=== PATIENT | male | born 1935 | race Caucasian/White ===

== ENCOUNTER 2016-09-20 19:41 | Inpatient (IN) | payer MEDICARE ==
[~2016-09-20] VITALS: Ht 170.2 cm; Wt 86.8 kg
[~2016-09-20 19:41] MED LIST: /PANT40TA PO; ACET50TA PO; ASPI81TA4 PO; BISO5TAB54 PO; CARV6.25 PO; CIPR500T89 PO; FLAG500T PO; HYDR12.56 PO; METF1000 PO; NEUPRO TOP; NITR4TASL SL; QUES4POW2 PO; ROPI2TAB PO; SIMV20TA2 PO; SIMV40TA2 PO; SIMVAS; VICOBULK PO; VITA100072 INJ; VITA400C2 PO; VITA500C24 PO; [UNRECOGNIZED DRUG - OTHER] TOP; [UNRECOGNIZED DRUG - REMARK]; carvedilol; glipizide PO; primidone PO; valsartan PO
[2016-09-20] MEDS ORDERED: ACETAMINOPHEN 325 MG TAB As Ordered ONE (20:26)
[2016-09-20] MEDS: SINEMET 25-100 MG TAB PO SCH (21:00)
[2016-09-20] MEDS: PRIMIDONE 50 MG TAB PO SCH (21:00)
[2016-09-20] MEDS: rOPINIRole 1MG TAB PO SCH (21:00)
[2016-09-20] MEDS: BISOPROLOL FUM 2.5 MG PER 1/2TAB PO SCH (21:00)
--- NOTE | 2016-09-20 21:00 | REPUSA ---
CT of the head Clinical history: altered mental status. Protocol: Multiple axial CT images obtained with 5 mm slice thickness were obtained through the head without administration of contrast. Findings: The ventricles and sulci are symmetric but prominent in size bilaterally. There are periven tricular areas of low attenuation throughout the deep white matter. There is no evidence of acute hem orrhage or infarct. There is no midline shift, mass effect, or extra-axial fluid collection. The osse ous structures are unremarkable. The visualized paranasal sinuses and mastoid air cells are clear. Impression: No acute hemorrhage or infarct. 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
[2016-09-20 21:04] LABS: MEAN CORPUSCULAR HEMOGLOBIN 31.6 pg (27.0-33.0); MEAN CORPUSCULAR HGB CONC 35.3 g/dl (32.0-36.5); MEAN CORPUSCULAR VOLUME 89.7 fl (80.0-96.0); PLATELET COUNT, AUTOMATED 135 k/mm3 (150-450); RED CELL DISTRIBUTION WIDTH 14.4 % (11.5-14.5); WHITE BLOOD COUNT 17.4 K/mm3 (4.0-10.0)
[2016-09-20 21:11] LABS: BANDS 13 % (< 11)
[2016-09-20 21:30] LABS: ALBUMIN 3.8 GM/DL (3.2-5.2); ALBUMIN/GLOBULIN RATIO 1.19 (1.00-1.93); ALKALINE PHOSPHATASE 127 U/L (45-117); ALT/SGPT 10 U/L (12-78); ANION GAP 10 MEQ/L (8-16); AST/SGOT 19 U/L (15-37); BILIRUBIN,DIRECT 0.2 MG/DL (0.0-0.2); BILIRUBIN,TOTAL 0.7 MG/DL (0.2-1.0); BLOOD UREA NITROGEN 35 MG/DL (7-18); CALCIUM LEVEL 8.4 MG/DL (8.8-10.2); CARBON DIOXIDE LEVEL 28 MEQ/L (21-32); CHLORIDE LEVEL 104 MEQ/L (98-107); CREATININE FOR GFR 1.45 MG/DL (0.70-1.30); GLOMERULAR FILTRATION RATE 49.5 (>35); GLUCOSE, FASTING 304 MG/DL (83-110); POTASSIUM SERUM 5.1 MEQ/L (3.5-5.1); SODIUM LEVEL 142 MEQ/L (136-145)
[2016-09-20] MEDS ORDERED: LevoFLOXacin(LEVAQUIN)500 MG/100 ML BAG (J1956) As Ordered ONE (22:05)
[2016-09-20] MEDS ORDERED: CARB25TA PO (22:34)
[2016-09-20] MEDS ORDERED: VITA-130 PO (22:34)
[2016-09-20] MEDS ORDERED: LOPE2TAB PO (22:34)
[2016-09-20] MEDS ORDERED: VITA400C2 PO (22:34)
[2016-09-20] MEDS ORDERED: POTA10CA PO (22:34)
[2016-09-20] MEDS ORDERED: ASPI81TAEC PO (22:34)
[2016-09-20] MEDS ORDERED: LASI40TA PO (22:34)
[2016-09-20] MEDS ORDERED: LASI20TA PO (22:34)
[2016-09-20] MEDS ORDERED: GLIP5TAB8 PO ×2 (22:34)
[2016-09-20] MEDS ORDERED: ACET50TAOT PO (22:34)
[2016-09-20] MEDS ORDERED: NITR4TASL SL (22:34)
[2016-09-20] MEDS ORDERED: SIMV20TA2 PO (22:34)
[2016-09-20] MEDS ORDERED: VALS1TAB46 PO (22:34)
[2016-09-20] MEDS ORDERED: ROPI2TAB PO (22:34)
[2016-09-20] MEDS ORDERED: PRIM50TA2 PO (22:34)
[2016-09-20] MEDS ORDERED: META800T82 PO (22:34)
[2016-09-20] MEDS ORDERED: CYAN1000VL IM (22:34)
[2016-09-20] MEDS ORDERED: VITA50003 PO (22:34)
--- NOTE | 2016-09-20 23:16 | REP ---
Clinical: Nonacute cerebrovascular accident. Technique: Portable semiupright. Comparison: 06/25/2012. Findings: Cardiomegaly is appreciated with stable pacemaker and atherosclerotic changes to the aorta. Lung ortega demonstrate chronic changes without acute consolidation, effusion, or pneumothorax. Skeletal structures are intact. Impression: Chronic stable changes. No acute cardiopulmonary process appreciated. Signed by Werner Jack MD 09/20/2016 11:08 P
[2016-09-21] MEDS ORDERED: NITROGLYCERIN 0.4 MG SUBL TABLET SL PRN (01:15)
--- NOTE | 2016-09-21 01:44 | EDDOCDS ---
Physician Documentation [facility] Name: Curt Ledesma Age: 81 yrs Sex: Male : 1935 Arrival Date: 09/20/2016 Time: 19:41 Bed 8 Private MD: Edwin García MD Disposition: 09/20/16 22:06 Hospitalization ordered by Lisa Nunez for Inpatient Admission. Preliminary diagnosis are Fever, unspecified, Pneumonia, unspecified organism. - Bed requested for 4 [place]. - Status is Inpatient Admission. kas2 - Condition is Stable. - Problem is an acute exacerbation. - Symptoms are unchanged. Historical: - Allergies: no known allergies; - Home Meds: 1. carbidopa-levodopa 25-100 mg Oral tab 2 tabs 4 times per day 2. glipizide 5 mg Oral tab 1 tab once daily 3. glipizide 5 mg Oral tab .5 tab once daily 4. Lasix 40 mg Oral tab 1 tab once daily 5. Lasix 20 mg Oral tab 1 tab once daily 6. potassium chloride 20 mEq Oral TbTQ 1 tab once daily 7. primidone 50 mg Oral tab 1 tabs bid 8. ropinirole 2 mg oral Tb24 2 tabs once daily 9. valsartan 80 mg oral tab 1 tab 2 times per day 10. Zebeta 5 mg oral tab 0.5 tab bid 11. immodium 1 bid 12. simvastatin 20 mg Oral tab 1 tab once daily 13. Aspirin Low Dose 81 mg oral TbEC 1 tab once daily 14. Vitamin C 100 mg Oral chew 15. vitamin E 400 unit Oral tab 16. metaxalone 800 mg oral tab .5 tab bid 17. Tylenol 500mg q 4hrs prn Oral 18. nitroglycerin 0.4 mg SL subl 1 tab every 5 minutes 19. vitamin [id number] im 20. Vitamin D 1 weekly Oral - PMHx: Diabetes - NIDDM: uncontrolled; Hypercholesterolemia; Hypertension; Myocardial infarction; defibrillator; Osteoarthritis; - PSHx: none; - Social history: Smoking status: Patient states was never smoker of tobacco. No barriers to communication noted. - Family history: Not pertinent. - : The pt / caregiver states he / she is not on anticoagulants. Home medication list is obtained from the patient. - Exposure Risk Screening:: None identified. Vital Signs: 09/20 19:50 BP 135 / 63; Pulse 111; Resp 20; Temp 102.5(O); Pulse Ox 96% on R/A; Weight 104.33 kg / ls3 230.01 lbs; Height 5 ft. 4 in. (162.56 cm); Pain 0/10; 20:39 BP 154 / 58 (auto/); kas2 20:40 Pulse 110 MON; kas2 20:59 BP 119 / 60 (auto/); kas2 20:59 Pulse 106 MON; kas2 21:07 Pulse 104 MON; kas2 21:09 BP 103 / 53 (auto/); kas2 21:24 BP 101 / 54 (auto/); kas2 21:24 Pulse 100 MON; Pulse Ox 99% ; kas2 21:39 BP 98 / 53 (auto/); kas2 21:39 Pulse 100 MON; Pulse Ox 95% ; kas2 21:54 BP 114 / 57 (auto/); kas2 21:54 Pulse 98 MON; Pulse Ox 99% ; kas2 22:14 Temp 101.1(TE); ls3 22:24 BP 98 / 70 (auto/); kas2 22:24 Pulse 96 MON; Pulse Ox 99% ; kas2 22:24 Resp 18; kas2 22:39 BP 95 / 50 (auto/); kas2 22:39 Pulse 96 MON; Pulse Ox 97% ; kas2 22:54 BP 99 / 57 (auto/); kas2 22:54 Pulse 96 MON; Pulse Ox 98% ; kas2 23:18 BP 77 / 49 (auto/); kas2 23:18 Pulse 92 MON; Pulse Ox 96% ; kas2 23:24 BP 78 / 49 (auto/); kas2 23:24 Pulse 92 MON; Pulse Ox 96% ; kas2 23:39 BP 102 / 58 (auto/); kas2 23:39 Pulse 92 MON; Pulse Ox 100% ; kas2 23:54 BP 104 / 54 (auto/); kas2 23:54 Pulse 90 MON; Pulse Ox 100% ; kas2 09/21 00:09 BP 105 / 55 (auto/); kas2 00:09 Pulse 90 MON; Pulse Ox 99% ; kas2 00:47 BP 103 / 52; Pulse 90; Resp 18; Pulse Ox 99% on 4 lpm NC; Pain 0/10; kas2 00:54 BP 95 / 52 (auto/); kas2 00:54 Pulse 88 MON; Pulse Ox 98% ; kas2 01:09 BP 105 / 55 (auto/); [facility] 01:09 Pulse 86 MON; Pulse Ox 98% ; [facility] 01:16 Temp 100.0(TE); [facility] 01:16 Pain 0/10; [facility] 09/20 19:50 Body Mass Index 39.48 (104.33 kg, 162.56 cm) ls3 MDM: 09/20 20:16 Acetaminophen Tablet 975 mg PO once ordered. ke 20:16 Record Filing Clerk/Pulse Ox/q 15 min VS ordered. ke 20:16 Accucheck ordered. ke 20:16 IV Saline Lock ordered. ke 20:16 Oxygen at 4L/Min NC or Home dosage ordered. ke 20:16 Rhythm Strip to chart ordered. ke 20:16 Straight cath ordered. ke 20:16 NS 0.9% 1000 ml IV at 100 mL/hr continuous ordered. ke 20:18 Acetaminophen Level Ordered. EDMS 20:18 CBC with Diff Ordered. EDMS 20:18 Cardiac Injury Profile Ordered. EDMS 20:18 Liver Profile Ordered. EDMS 20:18 MED Profile Ordered. EDMS 20:18 Salicylate Level Ordered. EDMS 20:18 Thyroid Stimulating Hormone Ordered. EDMS 20:18 Troponin Ordered. EDMS 20:18 Urinalysis Ordered. EDMS 20:18 Urine Culture Ordered. EDMS 20:18 Chest, 1 View Ordered. EDMS 20:18 CT Head Without Contrast Ordered. EDMS 20:18 ECG WITH READING ER PHYS+CARDIAG ordered. EDMS 20:26 Lactic Acid (Mejia tube on ice) Ordered. EDMS 21:01 Financial registration complete. gjb 21:07 DIFFERENTIAL NO CHARGE Ordered. EDMS 21:07 PLATELET ESTIMATE Ordered. EDMS 21:08 [facility] Payment Agreement was scanned into [employer] and attached to record. gjb 21:32 Fingerstick Blood Sugar Ordered. EDMS 21:40 Acetaminophen Level Reviewed. ke 21:40 CBC with Diff Reviewed. ke 21:40 Liver Profile Reviewed. ke 21:40 MED Profile Reviewed. ke 21:40 Salicylate Level Reviewed. ke 21:40 Lactic Acid (Mejia tube on ice) Reviewed. ke 21:40 Fingerstick Blood Sugar Reviewed. ke 21:40 Cardiac Injury Profile Reviewed. ke 21:40 Thyroid Stimulating Hormone Reviewed. ke 21:40 Troponin Reviewed. ke 21:40 PLATELET ESTIMATE Reviewed. ke 21:56 Urinalysis Reviewed. ke 21:56 CT Head Without Contrast Reviewed. ke 22:01 levofloxacin 500 mg IVPB once over 60 mins ordered. ke 22:07 BED REQUEST+ADM ordered. EDMS 22:41 -Blood Culture (Adults Only), peripheral from different site, or from device/port/PICC ke etc. if present ordered. 22:42 -Blood Culture Ordered. EDMS 22:44 -Blood Culture (Adults Only), peripheral from different site, or from device/port/PICC tmm1 etc. if present complete. 22:46 BLOOD CULTURES Ordered. EDMS 23:33 NS 0.9% 1000 ml IV at bolus once ordered. ke 09/21 00:56 BRAIN NATIURETIC PEPTIDE Ordered. EDMS 01:03 COMPLETE BLOOD COUNT Ordered. EDMS 01:03 BASIC METABOLIC PROFILE Ordered. EDMS 01:03 PHYSICAL THERAPY EVAL & TREAT ordered. EDMS 01:04 Admission / Observation Status ordered. EDMS 01:04 CONSISTENT CARBOHYDRATES ordered. EDMS 01:07 PRIMIDONE (MYSOLINE) LEVEL Ordered. EDMS 01:[address] GRAM [address] Ordered. EDMS Point of Care Testing: Blood Glucose: 09/20 20:03 Blood Glucose: 409 mg/dL; kas2 21:25 Blood Glucose: 283 mg/dL; kas2 Ranges: Administered Medications: 20:29 Drug: Acetaminophen 975 mg [acetaminophen 325 mg tablet (3 tabs)] Route: PO; jp6 20:53 Drug: NS 0.9% 1000 ml [sodium chloride 0.9 % intravenous solution] Route: IV; Rate: 100 kas2 mL/hr; Site: right antecubital; 22:09 Drug: levofloxacin 500 mg [levofloxacin 500 mg/100 mL in 5 % dextrose intravenous kas2 piggyback] Route: IVPB; Infused Over: 60 mins; Site: right antecubital; 23:50 Drug: NS 0.9% 1000 ml [sodium chloride 0.9 % intravenous solution] Route: IV; Rate: kas2 bolus; Site: right antecubital; Signatures: Dispatcher [employer] EDMS Cesar Lozano, SAFE AND VAULT SERVICE MECHANIC SAFE AND [employer]ULT SERVICE MECHANIC ke McLear, Annabelle, EFFERVESCENT SALTS COMPOUNDER EFFERVESCENT SALTS COMPOUNDER tmm1 Jenni Acunab Hanny MartinezRN RN kas2 Alia Romero RN RN jp6 The chart was reviewed and I authenticate all verbal orders and agree with the evaluation and treatment provided.Attachments: 21:08 [facility] Payment Agreement gjb [email or web address]
[2016-09-21 01:45] VITALS: BP 103/51
--- NOTE | 2016-09-21 01:45 | EDDOCDS ---
Nurse's Notes [facility] Name: Curt Ledesma Age: 81 yrs Sex: Male : 1935 Arrival Date: 09/20/2016 Time: 19:41 Bed 8 Private MD: Edwin García MD Diagnosis: Fever, unspecified;Pneumonia, unspecified organism Presentation: 09/20 19:48 Presenting complaint: EMS states: Son called EMS because patient was disoriented for a kas2 couple of hours. FSBS for EMS was 409 mg/dL. History of diabetes. Adult Sepsis Screening: Patient has new or worsening altered mentation (1 point). Patient's respiratory rate is less than 22. Systolic blood pressure is greater than 100. Patient has a qSOFA score of 0- Negative Sepsis Screen. Suicide/Homicide risk assessment- the patient denies having any suicidal and/or homicidal ideations and does not present with any other emotional, behavioral or mental health complaints. Status: Patient is not a customer service dispatcher or dependent. Transition of care: patient was not received from another setting of care. 19:48 Acuity: KEN Level 3 kas2 19:48 Method Of Arrival: Ambulance [facility] Triage Assessment: 19:55 General: Appears in no apparent distress, comfortable, well nourished, well groomed, kas2 Behavior is appropriate for age, cooperative. Pain: Denies pain. Neurological: Level of Consciousness is awake, alert, Oriented to person, place, time. 20:00 Cardiovascular: Capillary refill < 3 seconds Heart tones S1 S2 present Rhythm is sinus kas2 tachycardia No ectopy. Cardiovascular: Edema is 3+ to left midcalf, left ankle, left foot, right midcalf, right ankle and right foot. Respiratory: Airway is patent Respiratory effort is even, unlabored, Respiratory pattern is regular, symmetrical, Breath sounds are clear bilaterally. Breath sounds are diminished bilaterally. GI: Abdomen is flat, non- distended Bowel sounds present X 4 quads. Abd is soft and non tender X 4 quads. Derm: Skin is intact, is healthy with good turgor, Skin is dry, Skin is pink, warm & dry. Skin temperature is warm. Historical: - Allergies: no known allergies; - Home Meds: 1. carbidopa-levodopa 25-100 mg Oral tab 2 tabs 4 times per day 2. glipizide 5 mg Oral tab 1 tab once daily 3. glipizide 5 mg Oral tab .5 tab once daily 4. Lasix 40 mg Oral tab 1 tab once daily 5. Lasix 20 mg Oral tab 1 tab once daily 6. potassium chloride 20 mEq Oral TbTQ 1 tab once daily 7. primidone 50 mg Oral tab 1 tabs bid 8. ropinirole 2 mg oral Tb24 2 tabs once daily 9. valsartan 80 mg oral tab 1 tab 2 times per day 10. Zebeta 5 mg oral tab 0.5 tab bid 11. immodium 1 bid 12. simvastatin 20 mg Oral tab 1 tab once daily 13. Aspirin Low Dose 81 mg oral TbEC 1 tab once daily 14. Vitamin C 100 mg Oral chew 15. vitamin E 400 unit Oral tab 16. metaxalone 800 mg oral tab .5 tab bid 17. Tylenol 500mg q 4hrs prn Oral 18. nitroglycerin 0.4 mg SL subl 1 tab every 5 minutes 19. vitamin [id number] im 20. Vitamin D 1 weekly Oral - PMHx: Diabetes - NIDDM: uncontrolled; Hypercholesterolemia; Hypertension; Myocardial infarction; defibrillator; Osteoarthritis; - PSHx: none; - Social history: Smoking status: Patient states was never smoker of tobacco. No barriers to communication noted. - Family history: Not pertinent. - : The pt / caregiver states he / she is not on anticoagulants. Home medication list is obtained from the patient. - Exposure Risk Screening:: None identified. Screenin:02 Screening information is obtained from the patient. Fall risk: No risks identified. kas2 Assistance ADL's: requires no assistance with activities of daily living. Abuse/DV Screen: The patient / caregiver reports he/she is: not in a situation that causes fear, pain or injury. Nutritional screening: No deficits noted. Advance Directives: Currently, there is no health care proxy. There is no active DNR order. There is a living will, but a copy is not available at this time. There is no Power of Bolt Loader. home support is adequate. Assessment: 20:02 General: See triage note.. kas2 21:15 General: Appears in no apparent distress, comfortable, well nourished, well groomed, kas2 Behavior is appropriate for age, cooperative. Pain: Denies pain. Neurological: Level of Consciousness is awake, alert, Oriented to person, place, time. Cardiovascular: Capillary refill < 3 seconds Heart tones present Rhythm is sinus tachycardia No ectopy. Respiratory: Airway is patent Respiratory effort is even, unlabored, Respiratory pattern is regular, symmetrical, Breath sounds are clear bilaterally. Breath sounds are diminished bilaterally. Derm: Skin is intact, is healthy with good turgor, Skin is dry, Skin is pink, warm & dry. Skin temperature is warm. 22:30 General: Appears in no apparent distress, comfortable, well nourished, well groomed, kas2 Behavior is appropriate for age, cooperative, drowsy. Pain: Denies pain. Neurological: Level of Consciousness is awake, alert, obeys commands, Oriented to person, place, time. Cardiovascular: Capillary refill < 3 seconds Heart tones present Rhythm is sinus tachycardia No ectopy. Respiratory: Airway is patent Respiratory effort is even, unlabored, Respiratory pattern is regular, symmetrical, Breath sounds are clear bilaterally. Breath sounds are diminished bilaterally. Derm: Skin is intact, is healthy with good turgor, Skin is dry, Skin is pink, warm & dry. Skin temperature is warm. 23:52 General:. kas2 23:52 General: Patients BP 78/[address] Hi aware. Cesar Lozano NP aware and orders given..kas2 09/21 00:48 General: Patient sleeping at this time. Denies pain or discomfort at this time. No kas2 apparent distress at this time. Appears comfortable. Family at bedside. Call nobles within reach. Will continue to monitor.. Vital Signs: 09/20 19:50 BP 135 / 63; Pulse 111; Resp 20; Temp 102.5(O); Pulse Ox 96% on R/A; Weight 104.33 kg; ls3 Height 5 ft. 4 in. (162.56 cm); Pain 0/10; 20:39 BP 154 / 58 (auto/); kas2 20:40 Pulse 110 MON; kas2 20:59 BP 119 / 60 (auto/); kas2 20:59 Pulse 106 MON; kas2 21:07 Pulse 104 MON; kas2 21:09 BP 103 / 53 (auto/); kas2 21:24 BP 101 / 54 (auto/); kas2 21:24 Pulse 100 MON; Pulse Ox 99% ; kas2 21:39 BP 98 / 53 (auto/); kas2 21:39 Pulse 100 MON; Pulse Ox 95% ; kas2 21:54 BP 114 / 57 (auto/); kas2 21:54 Pulse 98 MON; Pulse Ox 99% ; kas2 22:14 Temp 101.1(TE); ls3 22:24 BP 98 / 70 (auto/); kas2 22:24 Pulse 96 MON; Pulse Ox 99% ; kas2 22:24 Resp 18; kas2 22:39 BP 95 / 50 (auto/); kas2 22:39 Pulse 96 MON; Pulse Ox 97% ; kas2 22:54 BP 99 / 57 (auto/); kas2 22:54 Pulse 96 MON; Pulse Ox 98% ; kas2 23:18 BP 77 / 49 (auto/); kas2 23:18 Pulse 92 MON; Pulse Ox 96% ; kas2 23:24 BP 78 / 49 (auto/); kas2 23:24 Pulse 92 MON; Pulse Ox 96% ; kas2 23:39 BP 102 / 58 (auto/); kas2 23:39 Pulse 92 MON; Pulse Ox 100% ; kas2 23:54 BP 104 / 54 (auto/); kas2 23:54 Pulse 90 MON; Pulse Ox 100% ; kas2 09/21 00:09 BP 105 / 55 (auto/); kas2 00:09 Pulse 90 MON; Pulse Ox 99% ; kas2 00:47 BP 103 / 52; Pulse 90; Resp 18; Pulse Ox 99% on 4 lpm NC; Pain 0/10; kas2 00:54 BP 95 / 52 (auto/); kas2 00:54 Pulse 88 MON; Pulse Ox 98% ; kas2 01:09 BP 105 / 55 (auto/); kas2 01:09 Pulse 86 MON; Pulse Ox 98% ; kas2 01:16 Temp 100.0(TE); kas2 01:16 Pain 0/10; kas2 09/20 19:50 Body Mass Index 39.48 (104.33 kg, 162.56 cm) ls3 Vitals: 09/20 20:02 Log In Time N/A - ambulance arrival. [facility] ED Course: 19:42 Patient visited by Annabelle Lozano PCA. tmm1 19:42 Patient moved to Waiting tmm1 19:43 Edwin Gacría is Private Physician. tmm1 19:44 Hanny Martinez RN is Primary Nurse. tmm1 19:44 Patient moved to 8 tmm1 19:50 Triage Initiated kas2 19:58 [facility] ke 19:58 Patient visited by Cesar Lozano FNP. ke 19:58 Patient visited by Cesar Lozano FNP. ke 20:03 Patient visited by Hanny Martinez RN. kas2 20:04 gambling monitor on. Pulse ox on. NIBP on. kas2 20:25 Patient visited by Serafin Collins PCA. mdr 20:25 EKG done. (by ED staff). Reviewed by Cesar OCASIO. mdr 20:53 Inserted saline lock: 20 gauge in right antecubital area and blood collected. The kas2 patient tolerated the procedure well. 20:54 Patient visited by Hanny Martinez RN. kas2 21:06 Urinalysis Sent. kas2 21:06 Urine Culture Sent. kas2 21:08 [facility] Payment Agreement was scanned into [employer] and attached to record. gjb 21:21 Patient visited by Cesar Lozano FNP. ke 21:26 Patient visited by Hanny Martinez RN. kas2 21:39 Notified nurse practitioner of lactic acid of 2.3. sls1 21:52 CT Head Without Contrast Returned. EDMS 21:56 Patient visited by Cesar Lozano FNP. ke 22:04 Lisa Nunez is Hospitalizing Provider. ke 22:04 DIFFERENTIAL NO CHARGE Sent. kas2 22:11 Patient visited by Hanny Martinez RN. kas2 22:15 Patient visited by Renetta Rushing PCA. ls3 22:33 Lisa Hi non destructive testing supervisor. ys2 22:34 Lisa Hi non destructive testing supervisor. ys2 23:49 Chest, 1 View Returned. EDMS 23:57 Patient visited by Hanny Martinez RN. kas2 09/21 00:52 Patient visited by Hanny Martinez RN. kas2 01:25 Patient visited by Hanny Martinez RN. kas2 01:42 The patient / caregiver is instructed regarding the plan of care and ED course. kas2 01:42 No procedures done that require assistance. kas2 01:43 Patient visited by Hanny Martinez RN. kas2 Administered Medications: 09/20 20:29 Drug: Acetaminophen 975 mg [acetaminophen 325 mg tablet (3 tabs)] Route: PO; jp6 20:53 Drug: NS 0.9% 1000 ml [sodium chloride 0.9 % intravenous solution] Route: IV; Rate: 100 kas2 mL/hr; Site: right antecubital; 22:09 Drug: levofloxacin 500 mg [levofloxacin 500 mg/100 mL in 5 % dextrose intravenous kas2 piggyback] Route: IVPB; Infused Over: 60 mins; Site: right antecubital; 23:50 Drug: NS 0.9% 1000 ml [sodium chloride 0.9 % intravenous solution] Route: IV; Rate: kas2 bolus; Site: right antecubital; Point of Care Testing: Blood Glucose: 20:03 Blood Glucose: 409 mg/dL; kas2 21:25 Blood Glucose: 283 mg/dL; kas2 Ranges: Order Results: Lab Order: Acetaminophen Level; SPEC'M 09/20/16 20:46 Test: ACETAMINOPHEN LEVEL; Value: 2.0; Range: 10.0-30.0; Abnormal: Below low normal; Units: UG/ML; Status: F Lab Order: CBC with Diff; SPEC'M 09/20/16 20:46 Test: WHITE BLOOD COUNT; Value: 17.4; Range: 4.0-10.0; Abnormal: Above high normal; Units: K/mm3; Status: F Test: RED BLOOD COUNT; Value: 4.22; Range: 4.30-6.10; Abnormal: Below low normal; Units: M/mm3; Status: F Test: HEMOGLOBIN; Value: 13.3; Range: 14.0-18.0; Abnormal: Below low normal; Units: g/dl; Status: F Test: HEMATOCRIT; Value: 37.8; Range: 42.0-52.0; Abnormal: Below low normal; Units: %; Status: F Test: MEAN CORPUSCULAR VOLUME; Value: 89.7; Range: 80.0-96.0; Units: fl; Status: F Test: MEAN CORPUSCULAR HEMOGLOBIN; Value: 31.6; Range: 27.0-33.0; Units: pg; Status: F Test: MEAN CORPUSCULAR HGB CONC; Value: 35.3; Range: 32.0-36.5; Units: g/dl; Status: F Test: RED CELL DISTRIBUTION WIDTH; Value: 14.4; Range: 11.5-14.5; Units: %; Status: F Test: PLATELET COUNT, AUTOMATED; Value: 135; Range: 150-450; Abnormal: Below low normal; Units: k/mm3; Status: F Test: NEUTROPHILS; Value: 82; Range: 35-75; Abnormal: Above high normal; Units: %; Status: F Test: BANDS; Value: 13; Range: < 11; Abnormal: Above high normal; Units: %; Status: F Test: LYMPHOCYTES; Value: 1; Range: 16-52; Abnormal: Below low normal; Units: %; Status: F Test: MONOCYTES; Value: 4; Range: 0-8; Units: %; Status: F Test: RBC MORPHOLOGY; Value: NORMAL; Status: F Lab Order: Cardiac Injury Profile; SPEC'M 09/20/16 20:46 Test: CPK CREATINE PHOSPHOKINASE; Value: 147; Range: 39-308; Units: U/L; Status: F Test: CK-MB VALUE MASS; Value: 1.7; Range: 0.0-3.6; Units: NG/ML; Status: F Test: MB/CK RELATIVE INDEX; Value: 1.15; Range: < OR =4; Status: F Test Note: ; DIAGNOSIS CRITERIA MMB ng/ml Relative Index (RI) NON-AMI < or = 5 N/A MEJIA ZONE > 5 < or = 4 AMI > 5 > 4 Lab Order: Liver Profile; SPEC'M 09/20/16 20:46 Test: AST/SGOT; Value: 19; Range: 15-37; Units: U/L; Status: F Test: ALT/SGPT; Value: 10; Range: 12-78; Abnormal: Below low normal; Units: U/L; Status: F Test: ALKALINE PHOSPHATASE; Value: 127; Range: 45-117; Abnormal: Above high normal; Units: U/L; Status: F Test: BILIRUBIN,TOTAL; Value: 0.7; Range: 0.2-1.0; Units: MG/DL; Status: F Test: BILIRUBIN,DIRECT; Value: 0.2; Range: 0.0-0.2; Units: MG/DL; Status: F Test: TOTAL PROTEIN; Value: 7.0; Range: 6.4-8.2; Units: GM/DL; Status: F Test: ALBUMIN; Value: 3.8; Range: 3.2-5.2; Units: GM/DL; Status: F Test: ALBUMIN/GLOBULIN RATIO; Value: 1.19; Range: 1.00-1.93; Status: F Lab Order: MED Profile; SPEC'M 09/20/16 20:46 Test: GLUCOSE, FASTING; Value: 304; Range: 83-110; Abnormal: Above high normal; Units: MG/DL; Status: F Test: BLOOD UREA NITROGEN; Value: 35; Range: 7-18; Abnormal: Above high normal; Units: MG/DL; Status: F Test: CREATININE FOR GFR; Value: 1.45; Range: 0.70-1.30; Abnormal: Above high normal; Units: MG/DL; Status: F Test: GLOMERULAR FILTRATION RATE; Value: 49.5; Range: >35; Status: F Test: SODIUM LEVEL; Value: 142; Range: 136-145; Units: MEQ/L; Status: F Test: POTASSIUM SERUM; Value: 5.1; Range: 3.5-5.1; Units: MEQ/L; Status: F Test: CHLORIDE LEVEL; Value: 104; Range: 98-107; Units: MEQ/L; Status: F Test: CARBON DIOXIDE LEVEL; Value: 28; Range: 21-32; Units: MEQ/L; Status: F Test: ANION GAP; Value: 10; Range: 8-16; Units: MEQ/L; Status: F Test: CALCIUM LEVEL; Value: 8.4; Range: 8.8-10.2; Abnormal: Below low normal; Units: MG/DL; Status: F Test Note: ; Units are mL/min/1.73 m2 Chronic Kidney Disease Staging per NKF: Stage I & II GFR >=60 Normal to Mildly Decreased Stage III GFR 30-59 Moderately Decreased Stage IV GFR 15-29 Severely Decreased Stage V GFR <15 Very Little GFR Left ESRD GFR <15 on VIRTUALIZATION CONSULTANT Lab Order: Salicylate Level; SPEC'M 09/20/16 20:46 Test: SALICYLATE LEVEL; Value: < 1.7; Range: 5.0-30.0; Abnormal: Below low normal; Units: MG/DL; Status: F Lab Order: Thyroid Stimulating Hormone; SPEC'M 09/20/16 20:46 Test: THYROID STIMULATING HORMONE; Value: 1.750; Range: 0.358-3.740; Units: uIU/ML; Status: F Lab Order: Troponin; SPEC'M 09/20/16 20:46 Test: TROPONIN I; Value: 0.04; Range: < 0.10; Units: NG/ML; Status: F Test Note: ; Troponin I Reference Interval for [employer] LOCI: 99th Percentile= 0.00-0.045 ng/ml Risk Stratification: <= 0.10 ng/ml Decreased Risk for Adverse Clinical Events. 0.10-1.50 ng/ml Increased Risk for Adverse Clinical Events. Evaluation of additional criterion and/or repeat testing in 2-6 hours is suggested to rule out myocardial damage. >= 1.50 ng/ml Indicative of Myocardial Injury. Lab Order: Urinalysis; SPEC'M 09/20/16 20:46 Test: APPEARANCE, URINE; Value: CLEAR; Range: CLEAR; Status: F Test: COLOR, URINE; Value: YELLOW; Range: YELLOW; Status: F Test: PH,URINE; Value: 5.0; Range: 5.0-9.0; Units: UNITS; Status: F Test: SPECIFIC GRAVITY URINE AUTO; Value: 1.009; Range: 1.002-1.035; Status: F Test: PROTEIN, URINE AUTO; Value: NEGATIVE; Range: NEGATIVE; Units: mg/dL; Status: F Test: GLUCOSE, URINE (UA) AUTO; Value: 3+; Range: NEGATIVE; Abnormal: Above high normal; Units: mg/dL; Status: F Test: KETONE, URINE AUTO; Value: NEGATIVE; Range: NEGATIVE; Units: mg/dL; Status: F Test: UROBILINOGEN, URINE AUTO; Value: 0.2; Range: 0.0-2.0; Units: mg/dL; Status: F Test: BILIRUBIN, URINE AUTO; Value: NEGATIVE; Range: NEGATIVE; Status: F Test: NITRITE, URINE AUTO; Value: NEGATIVE; Range: NEGATIVE; Status: F Test: LEUKOCYTE ESTERASE, URINE AUTO; Value: NEGATIVE; Range: NEGATIVE; Status: F Test: BLOOD, URINE BLOOD; Value: NEGATIVE; Range: NEGATIVE; Status: F Test: WBC, URINE AUTO; Value: 0; Range: 0-3; Units: /HPF; Status: F Test: RBC, URINE AUTO; Value: 1; Range: 0-3; Units: /HPF; Status: F Test: BACTERIA, URINE AUTO; Value: NEGATIVE; Range: NEGATIVE; Status: F Test: SQUAMOUS EPITHELIAL CELL UR AU; Value: 0; Range: 0-6; Units: /HPF; Status: F Test: MUCUS, URINE; Value: SMALL; Range: NEGATIVE; Status: F Test: HYALINE CAST, URINE AUTO; Value: 0; Range: 0-1; Units: /LPF; Status: F Lab Order: Lactic Acid (Mejia tube on ice); SPEC'M 09/20/16 20:46 Test: LACTIC ACID LEVEL, LACTATE; Value: 2.3; Range: 0.4-2.0; Abnormal: Above upper panic limits; Units: MMOL/L; Status: F Lab Order: PLATELET ESTIMATE; SPEC'M 09/20/16 20:46 Test: PLATELET ESTIMATE; Value: DECREASED; Range: NORMAL; Status: F Lab Order: Fingerstick Blood Sugar; SPEC'M 09/20/16 21:24 Test: BEDSIDE GLUCOSE; Value: 283; Range: 83-110; Abnormal: Above high normal; Units: MG/DL; Status: F Lab Order: BRAIN NATIURETIC PEPTIDE; SPEC'M 09/20/16 20:46 Test: BRAIN NATRIURETIC PEPTIDE; Value: 192; Range: <100; Abnormal: Above high normal; Units: PG/ML; Status: F Radiology Order: CT Head Without Contrast Test: CT Head Without Contrast REASON FOR EXAMINATION: altered mental status; ; CT of the head; Clinical history: altered mental status.; Protocol: Multiple axial CT images obtained with 5 mm slice thickness were obtained through the head; without administration of contrast.; Findings: The ventricles and sulci are symmetric but prominent in size bilaterally. There are periven; tricular areas of low attenuation throughout the deep white matter. There is no evidence of acute hem; orrhage or infarct. There is no midline shift, mass effect, or extra-axial fluid collection. The osse; ous structures are unremarkable. The visualized paranasal sinuses and mastoid air cells are clear.; Impression: No acute hemorrhage or infarct. 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 Lung ortega demonstrate chronic changes without acute consolidation,; effusion, or pneumothorax. Skeletal structures are intact.; ; Impression:; Chronic stable changes. No acute cardiopulmonary process appreciated.; ; ; Signed by; Werner Jack MD 09/20/2016 11:08 P; Outcome: 22:06 Decision to Hospitalize by Provider. teddy 09/21 01:40 Discharge Assessment: patient administered narcotics - no. The following High Risk [facility] Discharge criteria are identified: None. Admitted to Med/Surg accompanied by tech, family with patient, via stretcher, with oxygen, with chart. Condition: good Condition: stable. No special radiology studies were completed. Property :Personal belongings accompany Pt. 01:43 Patient left the ED. [facility] Signatures: Dispatcher [employer] EDMS Cesar Lozano, HOTEL SUPERINTENDENT HOTEL SUPERINTENDENT Margaret Cruz, RN RN sls1 Marta, Annabelle, YARD DEMURRAGE CLERK YARD DEMURRAGE CLERK tmm1 Renetta Rushing, YARD DEMURRAGE CLERK YARD DEMURRAGE CLERK ls3 Serafin Collins, YARD DEMURRAGE CLERK YARD DEMURRAGE CLERK mdr Jenni Acuna Yu ys2 Hanny Martinez,RN RN perry2 Alia Romero,RN RN jp6 Corrections: (The following items were deleted from the chart) 09/20 23:57 23:55 General: Appears in no apparent distress, comfortable, well nourished, well kas2 groomed, Behavior is appropriate for age, cooperative, drowsy, [facility] 23:57 23:55 Pain: Denies pain. [facility] 23:57 23:55 Neurological: Level of Consciousness is awake, alert, obeys commands, Oriented to [facility] person, place, time, [facility] 23:57 23:55 Cardiovascular: Capillary refill < 3 seconds Heart tones present Rhythm is sinus kas2 tachycardia No ectopy. [facility] 23:57 23:55 Respiratory: Airway is patent Respiratory effort is even, unlabored, Respiratory [facility] pattern is regular, symmetrical, Breath sounds are clear bilaterally. Breath sounds are diminished bilaterally. kas2 23:57 23:55 Derm: Skin is intact, is healthy with good turgor, Skin is dry, Skin is pink, kas2 warm & dry. Skin temperature is warm kas2 MTDD
--- NOTE | 2016-09-21 03:08 | HPE ---
DATE OF ADMISSION: 09/21/2016 PRIMARY CARE PROVIDER: Dr. Edwin García CHIEF COMPLAINT: Confusion. HISTORY OF PRESENT ILLNESS: The patient is an 81-year-old male with past medical history significant for Parkinson's, non-insulin dependent diabetes, hypercholesterolemia, hypertension, myocardial infarction, congestive heart failure (CHF), osteoarthritis, who was brought to [facility] by ambulance for acute onset of confusion. Patient's son, the health care proxy was also present in the room during the encounter. Per the son, patient has Parkinson's at baseline; however, he is able to walk around the house with a walker, he is able to eat by himself. Family members usually come to visit him a few times a day to help him with bath and medications. Starting this morning, patient started to mention things out of the ordinary. He started to show some signs of confusion. In the afternoon, the patient started developing disorientation, unable to maintain normal ambulation. Patient also noted to start having a fever. Per patient and the son, at baseline, patient usually lives at home by himself. There were a few times patient would sleep in the chair; however, usually he can get up by himself and uses a walker to move around. However, today he does not demonstrate enough muscle strength to perform his usual activities. Per patient's son, the patient also noted to have increased urinary frequency for the past two days and there were several incidences when the patient demonstrated increased urgency. Patient also does have chronic lower extremity swelling. There are multiple ulcers on the bilateral extremities and they continue to have small blister formation, and there is some serous drainage coming out of the open sores. Denies any decubitus ulcers. Denies any shortness of breath. Denies any abdominal pain. Denies any diarrhea. ALLERGIES: No known drug allergies. HOME MEDICATIONS: - carbidopa/levodopa 25/100 two tabs four times a day - glipizide 5 mg by mouth every morning and 2.5 mg by mouth every night - Lasix 40 mg by mouth every morning and 20 mg by mouth every night - potassium chloride 20 mEq one tablet by mouth daily - primidone 50 mg by mouth twice a day - ropinirole 2 mg twice a day - valsartan 80 mg by mouth twice a day - Zebeta 2.5 mg by mouth twice a day - Imodium one tablet by mouth twice a day - simvastatin 20 mg by mouth at bedtime - aspirin 81 mg by mouth daily - vitamin C 100 mg daily - vitamin E 400 units daily - metolazone 400 mg twice a day - Tylenol 500 mg by mouth every four hours as needed - nitroglycerin 0.4 mg sublingual every five minutes as needed for chest pain - vitamin B12 IM every month - vitamin D by mouth weekly PAST MEDICAL HISTORY: 1. Auu-[id number] diabetes. 2. Hypercholesterolemia. 3. Hypertension. 4. Myocardial infarction, status post defibrillator placement approximately 1-2 years ago. 5. Chronic diastolic and systolic congestive heart failure. 6. Osteoarthritis. PAST SURGICAL HISTORY: Defibrillator placement approximately 1-2 years ago. SOCIAL HISTORY: Denies smoking. Patient drinks beer once monthly. Denies any recreational drug use. Patient does not have a medical orders for life-sustaining treatment (MOLST) form, but he is considering DO NOT RESUSCITATE (DNR)/DO NOT INTUBATE (DNI). REVIEW OF SYSTEMS: GENERAL: Positive fever starting this afternoon. No chills. HEENT: No vision changes. No auditory changes. CARDIOVASCULAR: No chest pain. No palpitations. Patient has history of VT. Patient also has a history of systolic and diastolic congestive heart failure. RESPIRATORY: No shortness of breath, no cough, no sputum production. GI: No nausea, no vomiting, no abdominal pain, no diarrhea. : Complained about increased urgency and frequency for the past few days. MUSCULOSKELETAL: Patient has chronic bilateral lower extremity swelling, multiple venous stasis ulcers. The son is helping to take care of the wound and worsening of the venous ulcers. NEUROLOGICAL: History of Parkinson's. No numbness or tingling. PHYSICAL EXAMINATION: VITAL SIGNS: Blood pressure 135/63, pulse is 111, respirations 20, temperature is 102.5, pulse oximetry is 96% in room air. Body weight is 104 kg, body height is 162.56 cm. GENERAL: Fatigue. Shows some signs of confusion. Patient does know the name, the president, and the year; however, the patient does not know about the location. Eventually he got the answers right after multiple attempts at redirecting the patient. HEENT: Normocephalic, atraumatic. Extraocular motors are grossly intact. CARDIOVASCULAR: Very distant heart souns. Positive S1, S2, regular rate. LUNGS: Clear to auscultation bilaterally. ABDOMEN: Soft, nontender, and nondistended. Bowel sounds are present. No rebound, no guarding. EXTREMITIES: Plus 2-3 pitting edema bilaterally. Positive venous stasis ulcers of the bilateral lower extremities, most significant on the left side. There is active serous drainage from the lesion site. There is also some yellowish mild, foul smelling, tissue formation throughout the ulcer sites. No decubitus ulcer. NEUROLOGICAL: Muscle strength 5/5. Sensation to fine touch grossly intact. Parkinson's disease. LABORATORY DATA: WBC 17.4, hemoglobin 13.3, hematocrit is 37.8, platelet count is 135. Sodium 142, potassium 5.1, chloride is 104, carbon dioxide is 28, BUN 35, creatinine 1.45, GFR is 49.5, fasting glucose 304, lactic acid 2.3, calcium is 8.4, total bilirubin 0.7, direct bilirubin 0.2, AST 19, ALT 10, alkaline phosphatase is 127, total protein is 147, troponin I is 0.04, albumin 3.8, TSH 1.75. Urinalysis is negative. Blood culture is pending. Urine culture is pending. IMAGING: CT of the head without contrast showed no acute hemorrhages or infarct. Findings with age related atrophy and chronic small vessel ischemic disease. Chest x-ray showed chronic stable changes. No acute cardiopulmonary process appreciated. ASSESSMENT AND PLAN: 1. [id number] diastolic and systolic congestive heart failure. 2. History of myocardial infarction, status post defibrillator placement. 3. Osteoarthritis. PLAN: Patient will be admitted to the medical and surgical floor under inpatient status. Currently, we will try to search for source of infection. Patient had an elevate white count, elevated lactic acid with fever. Patient received IV fluid bolus in the emergency room. Patient also received Levaquin in the emergency room. Unfortunately, the blood cultures were ordered after the antibiotics. We will interpret with cultures with caution. Patient does not have any respiratory issues, and denies any gastrointestinal (GI) issues. Patient did complain about increased urgency and frequency; however, urinalysis (UA) has been negative. Followup with cultures. Patient does have worsening bilateral lower extremity venous stasis ulcers. We will followup with wound cultures. Due to patient's presentation for systemic inflammatory response syndrome (SIRS), we will empirically start the patient on Rocephin, which will cover potential urinary tract infection and skin infections. At baseline, on 07/28/2016, patient had a creatinine of 1.29, GFR 56.6. Currently, patient has a creatinine of 1.45 and 49.5. Combined with the physical examination, the patient did show some signs of fluid overload. We suspect patient has acute kidney injury (MIRIAN) from congestive heart failure (CHF) exacerbation. We will try to treat the patient for SIRS. The patient also received IV bolus in the emergency room. For now, we will monitor the patient's input and output. If patient's vital signs remain stable and there is worsening of renal function, we will try to restart the Lasix diuresis. Continue the patient's Parkinson's home medications. Patient will be on sliding scale and consistent carbohydrate diet for his diabetes. Due to patient's acute renal injury, patient's losartan is on hold. Patient still has Zebeta for his hypertension. For patient's altered mental status/confusion, it is possibly due to infectious etiology. Currently, the patient is on empiric antibiotic. We will continue to look for the source of the infection. There is no electrolyte abnormality. Immune studies suggest that the patient has acute mentation changes. Deep vein thrombosis (DVT) prophylaxis. Heparin.
[2016-09-21] MEDS: VITAMIN E 400 INTERNATIONAL UNITS CAP PO SCH ×2 (04:20→21:38)
[2016-09-21] MEDS: SIMVASTATIN 20 MG TAB PO SCH ×2 (04:21→21:38)
[2016-09-21] MEDS: ASPIRIN 81 MG ENTERIC TAB PO SCH ×2 (04:21→21:38)
[2016-09-21] MEDS: cefTRIAXone SOD 2 GM in D5W MINI-BAG PLUS 50 ML IV SCH ×2 (04:21→14:50)
[2016-09-21] MEDS: ASCORBIC ACID 500 MG TAB PO SCH ×2 (04:21→21:38)
[2016-09-21] MEDS: ACETAMINOPHEN TAB 650MG DOSE (2X325MG) PO PRN ×3 (04:24→21:39)
[2016-09-21] MEDS ORDERED: BISO5TAB5 PO (05:33)
[2016-09-21 06:00] VITALS: BP 108/57
[2016-09-21] MEDS: HEPARIN SOD (PORCINE) 5000 UNITS/ML VIAL SC SCH ×3 (06:10→21:38)
[2016-09-21 07:30] LABS: MEAN CORPUSCULAR HEMOGLOBIN 31.3 pg (27.0-33.0); MEAN CORPUSCULAR HGB CONC 34.3 g/dl (32.0-36.5); MEAN CORPUSCULAR VOLUME 91.5 fl (80.0-96.0); RED CELL DISTRIBUTION WIDTH 14.3 % (11.5-14.5); WHITE BLOOD COUNT 13.1 K/mm3 (4.0-10.0)
[2016-09-21 07:57] LABS: CALCIUM LEVEL 8.3 MG/DL (8.8-10.2); CREATININE FOR GFR 1.55 MG/DL (0.70-1.30); GLOMERULAR FILTRATION RATE 45.8 (>35); POTASSIUM SERUM 4.4 MEQ/L (3.5-5.1)
[2016-09-21] MEDS: FUROSEMIDE 40 MG TAB PO SCH ×2 (09:00→16:11)
[2016-09-21] MEDS: SINEMET 25-100 MG TAB PO SCH ×4 (09:00→21:38)
[2016-09-21] MEDS: rOPINIRole 1MG TAB PO SCH ×2 (09:00→16:10)
[2016-09-21] MEDS: BISOPROLOL FUM 2.5 MG PER 1/2TAB PO SCH ×2 (09:00→21:41)
[2016-09-21] MEDS: POTASSIUM CHLORIDE 10 MEQ SR TABLET PO SCH (09:01)
[2016-09-21] MEDS: PRIMIDONE 50 MG TAB PO SCH ×2 (09:01→21:41)
--- NOTE | 2016-09-21 11:04 | IPNPDOC ---
Assessment/Plan Date Seen The patient was seen on 09/21/16. Problems Problems: (1) SIRS (systemic inflammatory response syndrome) Status: Acute Response to Treatment: Stable, Improving Problem Text: Leukocytosis and fever of unclear etiology U/A unremarkable, U/C pending CXR negative B/C pending Has some BL Le venous stasis dermatitis with chronic venous stasis ulcers that actually look better than baseline for him - This may be a source for infection.. For now he is being covered by Rocephin empirically. WBC trending down, Follow trend of temp. Repeat Lactic Acid level today Get Echo to evaluate for Endocarditis (2) Venous stasis ulcers Status: Chronic Response to Treatment: Stable Problem Text: Continue Lasix BID (3) Parkinson disease Status: Chronic Response to Treatment: Worse Problem Text: He has been declining - Normally independent at home with 2 sons who are very involved and who check on him and help him throughout the day Order PT/OT PFS consulted and made aware of need to assist with dispo planning - may need St rehab (4) Diabetes type 2, controlled Status: Chronic Response to Treatment: Worse Problem Text: Normally controlled on GLipizide BS high due to illness Start FSBS with SSI coverage for now (5) CAD (coronary artery disease), [place] coronary artery Status: Chronic Response to Treatment: Stable (SQ heparin) Plan / VTE VTE Prophylaxis Ordered?: Yes (SQ heparin) Plan Therapy: PT, OT Disposition PFS involved in Dispo planning Subjective Review of Systems CC/HPI The patient is a 81-year-old male admitted with a reason for visit of Altered Mental State. Events since last encounter Still with fever. No cough, SOB, sore throat. No pain. no n/v, abd pain or diarrhea. He has had some urinary frequency but no dysuria. Per his sons, the legs wounds are the driest they have been in a while. Less erythema and edema than usual. Constitutional: Reports: Chills, Fever Pulmonary: Denies: Cough, Dyspnea Cardiovascular: Denies: Chest Pain, Palpitations Gastrointestinal: Denies: Abdominal Pain, Diarrhea, Nausea, Vomiting Genitourinary: Reports: Frequency, Denies: Dysuria Objective Physical Examination General Exam: Positive: Alert (Looks ill. Oriented, able to answer questions and follow commands. Very weak geneerally) Chest Exam: Positive: Clear to auscultation, Normal air movement Heart Exam: Positive: Rate Normal, Negative: Murmurs Abdomen Exam: Positive: Normal bowel sounds, Soft, Negative: Tenderness Extremity Exam: Positive: Edema (trace edema) Skin Exam: Positive: Other skin issue (BL lower extremity erythema on shins, with venous stasis ulcers that are dry ) Vital Signs/I&O Vital Signs Date Time Temp Pulse Resp B/P Pulse Ox O2 Delivery O2 Flow Rate FiO2 09/21/16 09:33 99.8 09/21/16 09:00 74 110/58 09/21/16 06:00 20 93 Nasal Cannula 2.0 I&O- Last 24 Hours up to 6 AM 09/21/16 06:00 Intake Total 110 ml Balance 110 ml Laboratory Data Labs 24H Laboratory Tests 2 09/20/16 20:46: Acetaminophen Level 2.0L, Aspartate Amino Transf (AST/SGOT) 19, Alanine Aminotransferase (ALT/SGPT) 10L, Alkaline Phosphatase 127H, Total Bilirubin 0.7 , Direct Bilirubin 0.2, Albumin 3.8, Albumin/Globulin Ratio 1.19, Anion Gap 10, B-Type Natriuretic Peptide 192H, Band Neutrophils 13H, White Blood Count 17.4H, Red Blood Count 4.22L, Hemoglobin 13.3L, Hematocrit 37.8L, Mean Corpuscular Volume 89.7, Mean Corpuscular Hemoglobin 31.6, Mean Corpuscular Hemoglobin Concent 35.3, Red Cell Distribution Width 14.4, Platelet Count 135L, Neutrophils (%) (Auto) , Lymphocytes (%) (Auto) , Monocytes (%) (Auto) , Eosinophils (%) (Auto) , Basophils (%) (Auto) , Neutrophils # (Auto) , Lymphocytes # (Auto) , Monocytes # (Auto) , Eosinophils # (Auto) , Basophils # ( Auto) , Calcium Level 8.4L, Creatine Kinase MB 1.7, Creatine Kinase MB Relative Index 1.15, Glomerular Filtration Rate 49.5, Lactic Acid Level 2.3*H, Large Unclassified Cells # , Large Unclassified Cells % , Lymphocytes (Manual) 1L, Monocytes (Manual) 4, Neutrophils 82H, Platelet Estimate DECREASED, Red Blood Cell Morphology NORMAL, Salicylates Level < 1.7L, Thyroid Stimulating Hormone ( TSH) 1.750, Total Creatine Kinase 147, Total Protein 7.0, Troponin I 0.04, Urine Amorphous Sediment , Urine Appearance CLEAR, Urine Color YELLOW, Urine pH 5.0, Urine Specific [place] 1.009, Urine Protein NEGATIVE, Urine Glucose (UA) 3+ H, Urine Ketones NEGATIVE, Urine Urobilinogen 0.2, Urine Bilirubin NEGATIVE, Urine Leukocyte Esterase NEGATIVE, Urine Bacteria (Auto) NEGATIVE, Urine Blood NEGATIVE, Urine Calcium Carbonate Cryst(Auto) , Urine Calcium Oxalate Cryst ( Auto) , Urine Calcium Phosphate [place] (Auto) , Urine Cellular Casts , Urine Cystine Crystals , Urine Granular Casts (Auto) , Urine Hyaline Casts (Auto) 0, Urine Leucine Crystals , Urine Mucus (Auto) SMALL, Urine Nitrite NEGATIVE, Urine Oval Fat Bodies (Auto) , Urine RBC (Auto) 1, Urine Renal Epithelial Cells , Urine Sperm (Auto) , Urine Squamous Epithelial Cells 0, Urine Transitional Epithelial Cells , Urine Trichomonas (Auto) , Urine Triple Phosphate Cryst (Auto ) , Urine Tyrosine Crystals , Urine Uric Acid Crystals (Auto) , Urine WBC (Auto ) 0, Urine Waxy Casts (Auto) , Urine Yeast-Like Cells (Auto) 09/20/16 21:24: Bedside Glucose (Misc Panel) 283H 09/21/16 07:10: Anion Gap 9, Calcium Level 8.3L, Glomerular Filtration Rate 45.8, Blood Urea Nitrogen 37H, Creatinine 1.55H, Sodium Level 142, Potassium Level 4.4, Chloride Level 106, Carbon Dioxide Level 27 CBC/BMP Laboratory Tests 09/20/16 20:46 Red Blood Count 4.22 L, Mean Corpuscular Volume 89.7, Mean Corpuscular Hemoglobin 31.6, Mean Corpuscular Hemoglobin Concent 35.3, Red Cell Distribution Width 14.4, Neutrophils (%) (Auto) , Lymphocytes (%) (Auto) , Monocytes (%) (Auto) , Eosinophils (%) (Auto) , Basophils (%) (Auto) , Neutrophils # (Auto) , Lymphocytes # (Auto) , Monocytes # (Auto) , Eosinophils # (Auto) , Basophils # (Auto) 09/21/16 07:10 Red Blood Count 3.84 L, Mean Corpuscular Volume 91.5, Mean Corpuscular Hemoglobin 31.3, Mean Corpuscular Hemoglobin Concent 34.3, Red Cell Distribution Width 14.3, Calcium Level 8.3 L FSBS Laboratory Tests Test 09/20/16 21:24 Range/Units Bedside Glucose (Misc Panel) 283 83-110 MG/DL Microbiology Microbiology 09/21/16 Blood Culture, Received Pending 09/20/16 Blood Culture, Received Pending 09/20/16 Urine Culture, Received Pending 09/21/16 Gram Stain - Final, Resulted 09/21/16 Wound Culture, Resulted Pending JOHNY MEJIA PA-C Sep 21, 2016 11:04
[2016-09-21 14:00] VITALS: BP 137/60
[2016-09-21] MEDS ORDERED: GLUCOSE 4 GM CHEW TABLET PO PRN (14:00)
[2016-09-21] MEDS ORDERED: GLUCAGON FOR INJ 1 MG VIAL (J1610) SC PRN (14:00)
[2016-09-21] MEDS ORDERED: DEXTROSE 50% 50 ML SYRINGE IV PRN (14:00)
--- NOTE | 2016-09-21 16:58 | ECHO ---
DATE OF PROCEDURE: 09/21/2016 AGE: 81 GENDER: Male HEIGHT: 67 inches. WEIGHT: 207 pounds BODY SURFACE AREA: 2.05 sq. m INPATIENT: [address] [place] [address], Room 4220 REFERRING PHYSICIAN: ESTRELLA Sandoval. INDICATION: Fever, leukocytosis. Abnormal EKG. MEASUREMENTS: 2-D measurements: RV: 4.8 cm LV: 3.9 cm Septum: 1.1 cm Posterior wall: 1.0 cm Aortic root: 3.0 cm LA: 3.9 cm LVEF: 50%. Doppler measurements: AV: 1.1 m/sec LVOT: 0.74 m/sec LVOT diameter: 2.2 cm MV-E: 66 A: 80 E:A ratio: 0.8 Early mitral deceleration time: 208 ms E-Prime: 4.2 A-Prime: 9.5 E/E prime ratio: 15.8 PV: 0.65 m/sec Pulmonary artery acceleration time: 74 ms RVSP: 63 mmHg IVC: 2.6 cm COMMENTS: Normal sinus rhythm without intraventricular conduction disturbance. Technically difficult study in light of the patient's body habitus but some diagnostically useful information was still obtained. Borderline left atrial enlargement but normal left ventricular size. Moderately dilated right heart chambers. Left ventricle (LV) wall thickness was upper limits of normal with some thinning toward the distal anterior and apical region. On real-time imaging from the parasternal and injections, the distal septal and apex were markedly hypo- to akinetic but other wall motion was normal. Mild mitral annular calcification with slight thickening of the mitral leaflet edges but adequate leaflet excursion. No posterior systolic buckling. Three equal size aortic cusps with mildly thickened cusp edges but adequate cusp separation. Normal aortic root size. Unable to detect any pedunculated mass but could not rule out a small sessile vegetation. Pacing lead could be visualized traversing right heart structures. No pericardial effusion. Color flow Doppler study taken from the parasternal and apical projection showed trace aortic, very mild mitral, and moderate tricuspid insufficiency. Guided continuous wave Doppler of his aortic valve showed a normal peak systolic velocity against LV outflow tract obstruction. Pulsed and continuous wave Doppler of his LV inflow tract taken from the apical four-chamber projection showed normal diastolic filling velocities against mitral stenosis. There was more prominent late diastolic / atrial dependent filling pattern. A degree of diastolic dysfunction and at least mildly elevated mean left atrial pressure was confirmed by a slightly prolonged early mitral deceleration time and tissue Doppler of his mitral annulus. Pulsed and continuous wave Doppler of his pulmonary trunk showed a normal peak systolic velocity against right ventricle (RV) outflow tract obstruction. His pulmonary artery acceleration time was abbreviated consistent with an elevated pulmonary vascular resistance. Guided continuous wave Doppler of his tricuspid valve allowed our estimation of his right ventricular systolic pressure (moderately severely increased). His inferior vena cava was least moderately dilated with absent respiratory collapse consistent with significantly elevated central venous pressure of 20 mmHg. CONCLUSIONS: Mild aortic valvular sclerosis without stenosis and only trace insufficiency. Mild mitral annular calcification without inflow tract obstruction and very mild insufficiency. Could not rule out a sessile vegetation but no pedunculated mass. Normal left ventricular size, and wall thickness with distal septal / anterior and apical hypokinesis suggestive of prior injury with at least mild impairment of global resting systolic function. Borderline left atrial enlargement with Doppler evidence of an impairment of LV diastolic function and at least mildly elevated mean left atrial pressure. Moderately dilated right heart chambers with Doppler evidence of at least moderately severe pulmonary hypertension. Moderately dilated inferior vena cava (IVC) with absent respiratory collapse consistent with elevated central venous pressure.
[2016-09-21] MEDS: HumaLOG INSULIN (NovoLOG) PER UNIT SC SCH ×2 (19:48→21:00)
[2016-09-21 22:00] VITALS: BP 108/58
[2016-09-22] MEDS: cefTRIAXone SOD 2 GM in D5W MINI-BAG PLUS 50 ML IV SCH ×2 (02:10→15:18)
[2016-09-22 06:00] VITALS: BP 117/63
[2016-09-22] MEDS: HEPARIN SOD (PORCINE) 5000 UNITS/ML VIAL SC SCH ×3 (06:05→22:44)
[2016-09-22 06:50] LABS: MEAN CORPUSCULAR HEMOGLOBIN 31.2 pg (27.0-33.0); MEAN CORPUSCULAR VOLUME 91.5 fl (80.0-96.0); RED CELL DISTRIBUTION WIDTH 13.6 % (11.5-14.5)
[2016-09-22 07:08] LABS: CALCIUM LEVEL 8.5 MG/DL (8.8-10.2); CREATININE FOR GFR 1.43 MG/DL (0.70-1.30); GLOMERULAR FILTRATION RATE 50.3 (>35); POTASSIUM SERUM 4.1 MEQ/L (3.5-5.1)
--- NOTE | 2016-09-22 08:23 | ECGEPIP ---
Stationary ECG Study [facility] - ED Test Date: 2016-09-20 Pat Name: DARNELL NEWELL Department: Room: [place] [address] Gender: M Husker Operator: : [id number] Requested By: ALIS OCASIO Order Number: [id number] Reading MD: Adenike Davidson Measurements Intervals [place] Rate: 108 P: 55 [place]: 147 QRS: -16 QRSD: 105 T: 83 QT: 333 QTc: 448 Interpretive Statements SINUS TACHYCARDIA BASELINE ARTIFACT LIMITS INTERPRETATION LOW QRS VOLTAGE IN PRECORDIAL LEADS ANTEROSEPTAL OH, AGE NONSPECIFIC ST & T-WAVE ABNORMALITY ABNORMAL RHYTHM ECG INCREASED RATE 07/02/12 Electronically Signed On 09-22-2016 8:22:44 EST by Adenike Davidson
[2016-09-22] MEDS: PRIMIDONE 50 MG TAB PO SCH ×2 (08:28→20:18)
[2016-09-22] MEDS: BISOPROLOL FUM 2.5 MG PER 1/2TAB PO SCH ×2 (08:29→20:18)
[2016-09-22] MEDS: FUROSEMIDE 40 MG TAB PO SCH ×2 (08:29→16:04)
[2016-09-22] MEDS: HumaLOG INSULIN (NovoLOG) PER UNIT SC SCH ×4 (08:29→21:00)
[2016-09-22] MEDS: rOPINIRole 1MG TAB PO SCH ×2 (08:29→15:18)
[2016-09-22] MEDS: POTASSIUM CHLORIDE 10 MEQ SR TABLET PO SCH (08:30)
[2016-09-22] MEDS: SINEMET 25-100 MG TAB PO SCH ×5 (08:30→20:18)
--- NOTE | 2016-09-22 08:56 | IPNPDOC ---
Assessment/Plan Date Seen The patient was seen on 09/22/16. Problems Problems: (1) SIRS (systemic inflammatory response syndrome) Status: Acute Response to Treatment: Stable, Improving Problem Text: Leukocytosis and fever of unclear etiology U/A unremarkable, U/C pending CXR negative B/C pending Has some BL Le venous stasis dermatitis with chronic venous stasis ulcers that actually look better than baseline for him - This may be a source for infection.. For now he is being covered by Rocephin empirically. WBC trending down, Follow trend of temp. Repeat Lactic Acid level today Get Echo to evaluate for Endocarditis 09/22/16 - WBC down to 7. ECHO Mild aortic valvular sclerosis without stenosis and only trace insufficiency. Mild mitral annular calcification without inflow tract obstruction and very mild insufficiency. Could not rule out a sessile vegetation but no pedunculated mass. Normal left ventricular size, and wall thickness with distal septal / anterior and apical hypokinesis suggestive of prior injury with at least mild impairment of global resting systolic function. Borderline left atrial enlargement with Doppler evidence of an impairment of LV diastolic function and at least mildly elevated mean left atrial pressure. Moderately dilated right heart chambers with Doppler evidence of at least moderately severe pulmonary hypertension. Moderately dilated inferior vena cava (IVC) with absent respiratory collapse consistent with elevated central venous pressure. (2) Venous stasis ulcers Status: Chronic Response to Treatment: Stable Problem Text: Continue Lasix BID (3) Parkinson disease Status: Chronic Response to Treatment: Worse Problem Text: He has been declining - Normally independent at home with 2 sons who are very involved and who check on him and help him throughout the day Order PT/OT PFS consulted and made aware of need to assist with dispo planning - may need St rehab (4) Diabetes type 2, controlled Status: Chronic Response to Treatment: Worse Problem Text: Normally controlled on GLipizide BS high due to illness Start FSBS with SSI coverage for now (5) CAD (coronary artery disease), [place] coronary artery Status: Chronic Response to Treatment: Stable (SQ heparin) Plan / VTE VTE Prophylaxis Ordered?: Yes (SQ heparin) Plan Therapy: PT, OT Subjective Review of Systems CC/HPI The patient is a 81-year-old male admitted with a reason for visit of Altered Mental State. Events since last encounter Patient denies CP, SOB, Abd pain. Constitutional: Denies: Chills, Fever Pulmonary: Denies: Dyspnea Cardiovascular: Denies: Chest Pain Gastrointestinal: Denies: Abdominal Pain, Nausea, Vomiting Objective Physical Examination General Exam: Positive: Alert, No Acute Distress Chest Exam: Positive: Clear to auscultation, Normal air movement Heart Exam: Positive: Rate Normal, Negative: Murmurs Abdomen Exam: Positive: Normal bowel sounds, Soft, Negative: Tenderness Extremity Exam: Positive: Edema (trace edema) Skin Exam: Positive: Other skin issue (BL lower extremity erythema on shins, with venous stasis ulcers that are dry ) Vital Signs/I&O Vital Signs Date Time Temp Pulse Resp B/P Pulse Ox O2 Delivery O2 Flow Rate FiO2 09/22/16 08:29 73 117/63 09/22/16 06:00 98.7 20 96 Room Air 09/21/16 22:00 2.0 I&O- Last 24 Hours up to 6 AM 09/22/16 06:00 Intake Total 1140 ml Output Total 0 ml Balance 1140 ml Laboratory Data Labs 24H Laboratory Tests 2 09/21/16 11:31: Bedside Glucose (Misc Panel) 226H 09/21/16 11:44: Lactic Acid Level 1.8 09/21/16 16:37: Bedside Glucose (Misc Panel) 212H 09/21/16 20:21: Bedside Glucose (Misc Panel) 239H 09/22/16 06:19: Anion Gap 10, Blood Urea Nitrogen 37H, Creatinine 1.43H, Sodium Level 143, Potassium Level 4.1, Chloride Level 107, Carbon Dioxide Level 26, Calcium Level 8.5L, Glomerular Filtration Rate 50.3 CBC/BMP Laboratory Tests 09/22/16 06:19 Calcium Level 8.5 L, Red Blood Count 3.93 L, Mean Corpuscular Volume 91.5, Mean Corpuscular Hemoglobin 31.2, Mean Corpuscular Hemoglobin Concent 34.0, Red Cell Distribution Width 13.6 FSBS Laboratory Tests Test 09/21/16 11:31 09/21/16 16:37 09/21/16 20:21 Range/Units Bedside Glucose (Misc Panel) 226 212 239 83-110 MG/DL Microbiology Microbiology 09/21/16 Blood Culture - Preliminary, Resulted No growth after 24 hours . All specim... 09/20/16 Blood Culture - Preliminary, Resulted No growth after 24 hours . All specim... 09/20/16 Urine Culture, Received Pending 09/21/16 Gram Stain - Final, Resulted 09/21/16 Wound Culture, Resulted Pending Terry Underwood Sep 22, 2016 08:56
[2016-09-22 14:00] VITALS: BP 116/59
[2016-09-22] MEDS: SIMVASTATIN 20 MG TAB PO SCH (20:17)
[2016-09-22] MEDS: VITAMIN E 400 INTERNATIONAL UNITS CAP PO SCH (20:17)
[2016-09-22] MEDS: ASPIRIN 81 MG ENTERIC TAB PO SCH (20:17)
[2016-09-22] MEDS: ASCORBIC ACID 500 MG TAB PO SCH (20:18)
[2016-09-22] MEDS: NYSTATIN CREAM 15 GM TOP SCH (20:19)
[2016-09-22 22:00] VITALS: BP 120/56
--- NOTE | 2016-09-23 02:44 | EDDOCDS ---
Physician Documentation [facility] Name: Curt Ledesma Age: 81 yrs Sex: Male : 1935 Arrival Date: 09/20/2016 Time: 19:41 Bed 8 Private MD: Edwin García MD Disposition: 09/20/16 22:06 Hospitalization ordered by Lisa Nunez for Inpatient Admission. Preliminary diagnosis are Fever, unspecified, Pneumonia, unspecified organism. - Bed requested for 4 Kaplan. - Status is Inpatient Admission. kas2 - Condition is Stable. - Problem is an acute exacerbation. - Symptoms are unchanged. Historical: - Allergies: no known allergies; - Home Meds: 1. carbidopa-levodopa 25-100 mg Oral tab 2 tabs 4 times per day 2. glipizide 5 mg Oral tab 1 tab once daily 3. glipizide 5 mg Oral tab .5 tab once daily 4. Lasix 40 mg Oral tab 1 tab once daily 5. Lasix 20 mg Oral tab 1 tab once daily 6. potassium chloride 20 mEq Oral TbTQ 1 tab once daily 7. primidone 50 mg Oral tab 1 tabs bid 8. ropinirole 2 mg oral Tb24 2 tabs once daily 9. valsartan 80 mg oral tab 1 tab 2 times per day 10. Zebeta 5 mg oral tab 0.5 tab bid 11. immodium 1 bid 12. simvastatin 20 mg Oral tab 1 tab once daily 13. Aspirin Low Dose 81 mg oral TbEC 1 tab once daily 14. Vitamin C 100 mg Oral chew 15. vitamin E 400 unit Oral tab 16. metaxalone 800 mg oral tab .5 tab bid 17. Tylenol 500mg q 4hrs prn Oral 18. nitroglycerin 0.4 mg SL subl 1 tab every 5 minutes 19. vitamin [id number] im 20. Vitamin D 1 weekly Oral - PMHx: Diabetes - NIDDM: uncontrolled; Hypercholesterolemia; Hypertension; Myocardial infarction; defibrillator; Osteoarthritis; - PSHx: none; - Social history: Smoking status: Patient states was never smoker of tobacco. No barriers to communication noted. - Family history: Not pertinent. - : The pt / caregiver states he / she is not on anticoagulants. Home medication list is obtained from the patient. - Exposure Risk Screening:: None identified. Vital Signs: 09/20 19:50 BP 135 / 63; Pulse 111; Resp 20; Temp 102.5(O); Pulse Ox 96% on R/A; Weight 104.33 kg / ls3 230.01 lbs; Height 5 ft. 4 in. (162.56 cm); Pain 0/10; 20:39 BP 154 / 58 (auto/); kas2 20:40 Pulse 110 MON; kas2 20:59 BP 119 / 60 (auto/); kas2 20:59 Pulse 106 MON; kas2 21:07 Pulse 104 MON; kas2 21:09 BP 103 / 53 (auto/); kas2 21:24 BP 101 / 54 (auto/); kas2 21:24 Pulse 100 MON; Pulse Ox 99% ; kas2 21:39 BP 98 / 53 (auto/); kas2 21:39 Pulse 100 MON; Pulse Ox 95% ; kas2 21:54 BP 114 / 57 (auto/); kas2 21:54 Pulse 98 MON; Pulse Ox 99% ; kas2 22:14 Temp 101.1(TE); ls3 22:24 BP 98 / 70 (auto/); kas2 22:24 Pulse 96 MON; Pulse Ox 99% ; kas2 22:24 Resp 18; kas2 22:39 BP 95 / 50 (auto/); kas2 22:39 Pulse 96 MON; Pulse Ox 97% ; kas2 22:54 BP 99 / 57 (auto/); kas2 22:54 Pulse 96 MON; Pulse Ox 98% ; kas2 23:18 BP 77 / 49 (auto/); kas2 23:18 Pulse 92 MON; Pulse Ox 96% ; kas2 23:24 BP 78 / 49 (auto/); kas2 23:24 Pulse 92 MON; Pulse Ox 96% ; kas2 23:39 BP 102 / 58 (auto/); kas2 23:39 Pulse 92 MON; Pulse Ox 100% ; kas2 23:54 BP 104 / 54 (auto/); kas2 23:54 Pulse 90 MON; Pulse Ox 100% ; kas2 09/21 00:09 BP 105 / 55 (auto/); kas2 00:09 Pulse 90 MON; Pulse Ox 99% ; kas2 00:47 BP 103 / 52; Pulse 90; Resp 18; Pulse Ox 99% on 4 lpm NC; Pain 0/10; kas2 00:54 BP 95 / 52 (auto/); kas2 00:54 Pulse 88 MON; Pulse Ox 98% ; kas2 01:09 BP 105 / 55 (auto/); [facility] 01:09 Pulse 86 MON; Pulse Ox 98% ; [facility] 01:16 Temp 100.0(TE); [facility] 01:16 Pain 0/10; [facility] 09/20 19:50 Body Mass Index 39.48 (104.33 kg, 162.56 cm) ls3 MDM: 09/20 20:16 Acetaminophen Tablet 975 mg PO once ordered. ke 20:16 Etiquette Coach/Pulse Ox/q 15 min VS ordered. ke 20:16 Accucheck ordered. ke 20:16 IV Saline Lock ordered. ke 20:16 Oxygen at 4L/Min NC or Home dosage ordered. ke 20:16 Rhythm Strip to chart ordered. ke 20:16 Straight cath ordered. ke 20:16 NS 0.9% 1000 ml IV at 100 mL/hr continuous ordered. ke 20:18 Acetaminophen Level Ordered. EDMS 20:18 CBC with Diff Ordered. EDMS 20:18 Cardiac Injury Profile Ordered. EDMS 20:18 Liver Profile Ordered. EDMS 20:18 MED Profile Ordered. EDMS 20:18 Salicylate Level Ordered. EDMS 20:18 Thyroid Stimulating Hormone Ordered. EDMS 20:18 Troponin Ordered. EDMS 20:18 Urinalysis Ordered. EDMS 20:18 Urine Culture Ordered. EDMS 20:18 Chest, 1 View Ordered. EDMS 20:18 CT Head Without Contrast Ordered. EDMS 20:18 ECG WITH READING ER PHYS+CARDIAG ordered. EDMS 20:26 Lactic Acid (Mejia tube on ice) Ordered. EDMS 21:01 Financial registration complete. gjb 21:07 DIFFERENTIAL NO CHARGE Ordered. EDMS 21:07 PLATELET ESTIMATE Ordered. EDMS 21:08 [facility] [place] Agreement was scanned into [employer] and attached to record. gjb 21:32 Fingerstick Blood Sugar Ordered. EDMS 21:40 Acetaminophen Level Reviewed. ke 21:40 CBC with Diff Reviewed. ke 21:40 Liver Profile Reviewed. ke 21:40 MED Profile Reviewed. ke 21:40 Salicylate Level Reviewed. ke 21:40 Lactic Acid (Mejia tube on ice) Reviewed. ke 21:40 Fingerstick Blood Sugar Reviewed. ke 21:40 Cardiac Injury Profile Reviewed. ke 21:40 Thyroid Stimulating Hormone Reviewed. ke 21:40 Troponin Reviewed. ke 21:40 PLATELET ESTIMATE Reviewed. ke 21:56 Urinalysis Reviewed. ke 21:56 CT Head Without Contrast Reviewed. ke 22:01 levofloxacin 500 mg IVPB once over 60 mins ordered. ke 22:07 BED REQUEST+ADM ordered. EDMS 22:41 -Blood Culture (Adults Only), peripheral from different site, or from device/port/PICC ke etc. if present ordered. 22:42 -Blood Culture Ordered. EDMS 22:44 -Blood Culture (Adults Only), peripheral from different site, or from device/port/PICC tmm1 etc. if present complete. 22:46 BLOOD CULTURES Ordered. EDMS 23:33 NS 0.9% 1000 ml IV at bolus once ordered. ke 09/21 00:56 BRAIN NATIURETIC PEPTIDE Ordered. EDMS 01:03 COMPLETE BLOOD COUNT Ordered. EDMS 01:03 BASIC METABOLIC PROFILE Ordered. EDMS 01:03 PHYSICAL THERAPY EVAL & TREAT ordered. EDMS 01:04 Admission / Observation Status ordered. EDMS 01:04 CONSISTENT CARBOHYDRATES ordered. EDMS 01:07 PRIMIDONE (MYSOLINE) LEVEL Ordered. EDMS 01:[address] GRAM [address] Ordered. EDMS 07:13 T-Sheet-- Draft Copy was scanned into [employer] and attached to record. 11:50 ECG/EKG was scanned into [employer] and attached to record. gb 11:50 Radiology Report was scanned into [employer] and attached to record. 09/22 12:50 PCR was scanned into [employer] and attached to record. Point of Care Testing: Blood Glucose: 09/20 20:03 Blood Glucose: 409 mg/dL; kas2 21:25 Blood Glucose: 283 mg/dL; kas2 Ranges: Administered Medications: 20:29 Drug: Acetaminophen 975 mg [acetaminophen 325 mg tablet (3 tabs)] Route: PO; jp6 20:53 Drug: NS 0.9% 1000 ml [sodium chloride 0.9 % intravenous solution] Route: IV; Rate: 100 kas2 mL/hr; Site: right antecubital; 22:09 Drug: levofloxacin 500 mg [levofloxacin 500 mg/100 mL in 5 % dextrose intravenous kas2 piggyback] Route: IVPB; Infused Over: 60 mins; Site: right antecubital; 23:50 Drug: NS 0.9% 1000 ml [sodium chloride 0.9 % intravenous solution] Route: IV; Rate: kas2 bolus; Site: right antecubital; Signatures: Dispatcher [employer] EDMS Maura Spears, Isidro Reg gb Cesar Lozano, QUEEN PRODUCER QUEEN PRODUCER ke Michael Lozanosa, CRUSHER SETTER CRUSHER SETTER tmm1 Jenni Acuna Kim,KENYON RN kas2 Alia Romero,RN RN jp6 The chart was reviewed and I authenticate all verbal orders and agree with the evaluation and treatment provided.Attachments: 21:08 [facility] Payment Agreement gjb 09/21 07:13 T-Sheet-- Draft Copy gb 11:50 ECG/EKG gb Chart Complete MTDD
--- NOTE | 2016-09-23 02:44 | EDDOCDS ---
Nurse's Notes [facility] Name: Curt Ledesma Age: 81 yrs Sex: Male : 1935 Arrival Date: 09/20/2016 Time: 19:41 Bed 8 Private MD: Edwin García MD Diagnosis: Fever, unspecified;Pneumonia, unspecified organism Presentation: 09/20 19:48 Presenting complaint: EMS states: Son called EMS because patient was disoriented for a kas2 couple of hours. FSBS for EMS was 409 mg/dL. History of diabetes. Adult Sepsis Screening: Patient has new or worsening altered mentation (1 point). Patient's respiratory rate is less than 22. Systolic blood pressure is greater than 100. Patient has a qSOFA score of 0- Negative Sepsis Screen. Suicide/Homicide risk assessment- the patient denies having any suicidal and/or homicidal ideations and does not present with any other emotional, behavioral or mental health complaints. Status: Patient is not a service technician or dependent. Transition of care: patient was not received from another setting of care. 19:48 Acuity: KEN Level 3 kas2 19:48 Method Of Arrival: Ambulance [facility] Triage Assessment: 19:55 General: Appears in no apparent distress, comfortable, well nourished, well groomed, kas2 Behavior is appropriate for age, cooperative. Pain: Denies pain. Neurological: Level of Consciousness is awake, alert, Oriented to person, place, time. 20:00 Cardiovascular: Capillary refill < 3 seconds Heart tones S1 S2 present Rhythm is sinus kas2 tachycardia No ectopy. Cardiovascular: Edema is 3+ to left midcalf, left ankle, left foot, right midcalf, right ankle and right foot. Respiratory: Airway is patent Respiratory effort is even, unlabored, Respiratory pattern is regular, symmetrical, Breath sounds are clear bilaterally. Breath sounds are diminished bilaterally. GI: Abdomen is flat, non- distended Bowel sounds present X 4 quads. Abd is soft and non tender X 4 quads. Derm: Skin is intact, is healthy with good turgor, Skin is dry, Skin is pink, warm & dry. Skin temperature is warm. Historical: - Allergies: no known allergies; - Home Meds: 1. carbidopa-levodopa 25-100 mg Oral tab 2 tabs 4 times per day 2. glipizide 5 mg Oral tab 1 tab once daily 3. glipizide 5 mg Oral tab .5 tab once daily 4. Lasix 40 mg Oral tab 1 tab once daily 5. Lasix 20 mg Oral tab 1 tab once daily 6. potassium chloride 20 mEq Oral TbTQ 1 tab once daily 7. primidone 50 mg Oral tab 1 tabs bid 8. ropinirole 2 mg oral Tb24 2 tabs once daily 9. valsartan 80 mg oral tab 1 tab 2 times per day 10. Zebeta 5 mg oral tab 0.5 tab bid 11. immodium 1 bid 12. simvastatin 20 mg Oral tab 1 tab once daily 13. Aspirin Low Dose 81 mg oral TbEC 1 tab once daily 14. Vitamin C 100 mg Oral chew 15. vitamin E 400 unit Oral tab 16. metaxalone 800 mg oral tab .5 tab bid 17. Tylenol 500mg q 4hrs prn Oral 18. nitroglycerin 0.4 mg SL subl 1 tab every 5 minutes 19. vitamin [id number] im 20. Vitamin D 1 weekly Oral - PMHx: Diabetes - NIDDM: uncontrolled; Hypercholesterolemia; Hypertension; Myocardial infarction; defibrillator; Osteoarthritis; - PSHx: none; - Social history: Smoking status: Patient states was never smoker of tobacco. No barriers to communication noted. - Family history: Not pertinent. - : The pt / caregiver states he / she is not on anticoagulants. Home medication list is obtained from the patient. - Exposure Risk Screening:: None identified. Screenin:02 Screening information is obtained from the patient. Fall risk: No risks identified. kas2 Assistance ADL's: requires no assistance with activities of daily living. Abuse/DV Screen: The patient / caregiver reports he/she is: not in a situation that causes fear, pain or injury. Nutritional screening: No deficits noted. Advance Directives: Currently, there is no health care proxy. There is no active DNR order. There is a living will, but a copy is not available at this time. There is no Power of Rheumatology Nurse. home support is adequate. Assessment: 20:02 General: See triage note.. kas2 21:15 General: Appears in no apparent distress, comfortable, well nourished, well groomed, kas2 Behavior is appropriate for age, cooperative. Pain: Denies pain. Neurological: Level of Consciousness is awake, alert, Oriented to person, place, time. Cardiovascular: Capillary refill < 3 seconds Heart tones present Rhythm is sinus tachycardia No ectopy. Respiratory: Airway is patent Respiratory effort is even, unlabored, Respiratory pattern is regular, symmetrical, Breath sounds are clear bilaterally. Breath sounds are diminished bilaterally. Derm: Skin is intact, is healthy with good turgor, Skin is dry, Skin is pink, warm & dry. Skin temperature is warm. 22:30 General: Appears in no apparent distress, comfortable, well nourished, well groomed, kas2 Behavior is appropriate for age, cooperative, drowsy. Pain: Denies pain. Neurological: Level of Consciousness is awake, alert, obeys commands, Oriented to person, place, time. Cardiovascular: Capillary refill < 3 seconds Heart tones present Rhythm is sinus tachycardia No ectopy. Respiratory: Airway is patent Respiratory effort is even, unlabored, Respiratory pattern is regular, symmetrical, Breath sounds are clear bilaterally. Breath sounds are diminished bilaterally. Derm: Skin is intact, is healthy with good turgor, Skin is dry, Skin is pink, warm & dry. Skin temperature is warm. 23:52 General:. kas2 23:52 General: Patients BP 78/[address] Hi aware. Cesar Lozano NP aware and orders given..kas2 09/21 00:48 General: Patient sleeping at this time. Denies pain or discomfort at this time. No kas2 apparent distress at this time. Appears comfortable. Family at bedside. Call nobles within reach. Will continue to monitor.. Vital Signs: 09/20 19:50 BP 135 / 63; Pulse 111; Resp 20; Temp 102.5(O); Pulse Ox 96% on R/A; Weight 104.33 kg; ls3 Height 5 ft. 4 in. (162.56 cm); Pain 0/10; 20:39 BP 154 / 58 (auto/); kas2 20:40 Pulse 110 MON; kas2 20:59 BP 119 / 60 (auto/); kas2 20:59 Pulse 106 MON; kas2 21:07 Pulse 104 MON; kas2 21:09 BP 103 / 53 (auto/); kas2 21:24 BP 101 / 54 (auto/); kas2 21:24 Pulse 100 MON; Pulse Ox 99% ; kas2 21:39 BP 98 / 53 (auto/); kas2 21:39 Pulse 100 MON; Pulse Ox 95% ; kas2 21:54 BP 114 / 57 (auto/); kas2 21:54 Pulse 98 MON; Pulse Ox 99% ; kas2 22:14 Temp 101.1(TE); ls3 22:24 BP 98 / 70 (auto/); kas2 22:24 Pulse 96 MON; Pulse Ox 99% ; kas2 22:24 Resp 18; kas2 22:39 BP 95 / 50 (auto/); kas2 22:39 Pulse 96 MON; Pulse Ox 97% ; kas2 22:54 BP 99 / 57 (auto/); kas2 22:54 Pulse 96 MON; Pulse Ox 98% ; kas2 23:18 BP 77 / 49 (auto/); kas2 23:18 Pulse 92 MON; Pulse Ox 96% ; kas2 23:24 BP 78 / 49 (auto/); kas2 23:24 Pulse 92 MON; Pulse Ox 96% ; kas2 23:39 BP 102 / 58 (auto/); kas2 23:39 Pulse 92 MON; Pulse Ox 100% ; kas2 23:54 BP 104 / 54 (auto/); kas2 23:54 Pulse 90 MON; Pulse Ox 100% ; kas2 09/21 00:09 BP 105 / 55 (auto/); kas2 00:09 Pulse 90 MON; Pulse Ox 99% ; kas2 00:47 BP 103 / 52; Pulse 90; Resp 18; Pulse Ox 99% on 4 lpm NC; Pain 0/10; kas2 00:54 BP 95 / 52 (auto/); kas2 00:54 Pulse 88 MON; Pulse Ox 98% ; kas2 01:09 BP 105 / 55 (auto/); kas2 01:09 Pulse 86 MON; Pulse Ox 98% ; kas2 01:16 Temp 100.0(TE); kas2 01:16 Pain 0/10; kas2 09/20 19:50 Body Mass Index 39.48 (104.33 kg, 162.56 cm) ls3 Vitals: 09/20 20:02 Log In Time N/A - ambulance arrival. [facility] ED Course: 19:42 Patient visited by Annabelle Lozano PCA. tmm1 19:42 Patient moved to Waiting tmm1 19:43 Edwin García is Private Physician. tmm1 19:44 Hanny Martinez RN is Primary Nurse. tmm1 19:44 Patient moved to 8 tmm1 19:50 Triage Initiated kas2 19:58 Cesar Lozano FNP [facility]. ke 19:58 Patient visited by Cesar Lozano FNP. ke 19:58 Patient visited by Cesar Lozano FNP. ke 20:03 Patient visited by Hanny Martinez RN. kas2 20:04 still cleaner on. Pulse ox on. NIBP on. kas2 20:25 Patient visited by Serafin Collins PCA. mdr 20:25 EKG done. (by ED staff). Reviewed by Cesar OCASIO. mdr 20:53 Inserted saline lock: 20 gauge in right antecubital area and blood collected. The kas2 patient tolerated the procedure well. 20:54 Patient visited by Hanny Martinez RN. kas2 21:06 Urinalysis Sent. kas2 21:06 Urine Culture Sent. kas2 21:08 [facility] Payment Agreement was scanned into [employer] and attached to record. gjb 21:21 Patient visited by Cesar Lozano FNP. ke 21:26 Patient visited by Hanny Martinez RN. kas2 21:39 Notified nurse practitioner of lactic acid of 2.3. sls1 21:52 CT Head Without Contrast Returned. EDMS 21:56 Patient visited by Cesar Lozano FNP. ke 22:04 Lisa Nunez is Hospitalizing Provider. ke 22:04 DIFFERENTIAL NO CHARGE Sent. kas2 22:11 Patient visited by Hanny Martinez RN. kas2 22:15 Patient visited by Renetta Rushing PCA. ls3 22:33 Lisa Hi marketing analytics specialist. ys2 22:34 Lisa Hi marketing analytics specialist. ys2 23:49 Chest, 1 View Returned. EDMS 23:57 Patient visited by Hanny Martinez RN. kas2 01 00:52 Patient visited by Hanny Martinez RN. kas2 01:25 Patient visited by Hanny Martinez RN. kas2 01:42 The patient / caregiver is instructed regarding the plan of care and ED course. kas2 01:42 No procedures done that require assistance. kas2 01:43 Patient visited by Hanny Martinez RN. kas2 07:13 T-Sheet-- Draft Copy was scanned into [employer] and attached to record. gb 11:50 ECG/EKG was scanned into [employer] and attached to record. gb 11:50 Radiology Report was scanned into [employer] and attached to record. gb 09/22 12:50 PCR was scanned into [employer] and attached to record. gb Administered Medications: 09/20 20:29 Drug: Acetaminophen 975 mg [acetaminophen 325 mg tablet (3 tabs)] Route: PO; jp6 20:53 Drug: NS 0.9% 1000 ml [sodium chloride 0.9 % intravenous solution] Route: IV; Rate: 100 kas2 mL/hr; Site: right antecubital; 22:09 Drug: levofloxacin 500 mg [levofloxacin 500 mg/100 mL in 5 % dextrose intravenous kas2 piggyback] Route: IVPB; Infused Over: 60 mins; Site: right antecubital; 23:50 Drug: NS 0.9% 1000 ml [sodium chloride 0.9 % intravenous solution] Route: IV; Rate: kas2 bolus; Site: right antecubital; Point of Care Testing: Blood Glucose: 20:03 Blood Glucose: 409 mg/dL; kas2 21:25 Blood Glucose: 283 mg/dL; kas2 Ranges: Order Results: Lab Order: Acetaminophen Level; SPEC'M 09/20/16 20:46 Test: ACETAMINOPHEN LEVEL; Value: 2.0; Range: 10.0-30.0; Abnormal: Below low normal; Units: UG/ML; Status: F Lab Order: CBC with Diff; SPEC'M 09/20/16 20:46 Test: WHITE BLOOD COUNT; Value: 17.4; Range: 4.0-10.0; Abnormal: Above high normal; Units: K/mm3; Status: F Test: RED BLOOD COUNT; Value: 4.22; Range: 4.30-6.10; Abnormal: Below low normal; Units: M/mm3; Status: F Test: HEMOGLOBIN; Value: 13.3; Range: 14.0-18.0; Abnormal: Below low normal; Units: g/dl; Status: F Test: HEMATOCRIT; Value: 37.8; Range: 42.0-52.0; Abnormal: Below low normal; Units: %; Status: F Test: MEAN CORPUSCULAR VOLUME; Value: 89.7; Range: 80.0-96.0; Units: fl; Status: F Test: MEAN CORPUSCULAR HEMOGLOBIN; Value: 31.6; Range: 27.0-33.0; Units: pg; Status: F Test: MEAN CORPUSCULAR HGB CONC; Value: 35.3; Range: 32.0-36.5; Units: g/dl; Status: F Test: RED CELL DISTRIBUTION WIDTH; Value: 14.4; Range: 11.5-14.5; Units: %; Status: F Test: PLATELET COUNT, AUTOMATED; Value: 135; Range: 150-450; Abnormal: Below low normal; Units: k/mm3; Status: F Test: NEUTROPHILS; Value: 82; Range: 35-75; Abnormal: Above high normal; Units: %; Status: F Test: BANDS; Value: 13; Range: < 11; Abnormal: Above high normal; Units: %; Status: F Test: LYMPHOCYTES; Value: 1; Range: 16-52; Abnormal: Below low normal; Units: %; Status: F Test: MONOCYTES; Value: 4; Range: 0-8; Units: %; Status: F Test: RBC MORPHOLOGY; Value: NORMAL; Status: F Lab Order: Cardiac Injury Profile; SPEC'M 09/20/16 20:46 Test: CPK CREATINE PHOSPHOKINASE; Value: 147; Range: 39-308; Units: U/L; Status: F Test: CK-MB VALUE MASS; Value: 1.7; Range: 0.0-3.6; Units: NG/ML; Status: F Test: MB/CK RELATIVE INDEX; Value: 1.15; Range: < OR =4; Status: F Test Note: ; DIAGNOSIS CRITERIA MMB ng/ml Relative Index (RI) NON-AMI < or = 5 N/A MEJIA ZONE > 5 < or = 4 AMI > 5 > 4 Lab Order: Liver Profile; SPEC'M 09/20/16 20:46 Test: AST/SGOT; Value: 19; Range: 15-37; Units: U/L; Status: F Test: ALT/SGPT; Value: 10; Range: 12-78; Abnormal: Below low normal; Units: U/L; Status: F Test: ALKALINE PHOSPHATASE; Value: 127; Range: 45-117; Abnormal: Above high normal; Units: U/L; Status: F Test: BILIRUBIN,TOTAL; Value: 0.7; Range: 0.2-1.0; Units: MG/DL; Status: F Test: BILIRUBIN,DIRECT; Value: 0.2; Range: 0.0-0.2; Units: MG/DL; Status: F Test: TOTAL PROTEIN; Value: 7.0; Range: 6.4-8.2; Units: GM/DL; Status: F Test: ALBUMIN; Value: 3.8; Range: 3.2-5.2; Units: GM/DL; Status: F Test: ALBUMIN/GLOBULIN RATIO; Value: 1.19; Range: 1.00-1.93; Status: F Lab Order: [facility] Profile; [facility] 09/20[facility]16 20:46 Test: GLUCOSE, FASTING; Value: 304; Range: 83-110; Abnormal: Above high normal; Units: MG/DL; Status: F Test: BLOOD UREA NITROGEN; Value: 35; Range: 7-18; Abnormal: Above high normal; Units: MG/DL; Status: F Test: CREATININE FOR GFR; Value: 1.45; Range: 0.70-1.30; Abnormal: Above high normal; Units: MG/DL; Status: F Test: GLOMERULAR FILTRATION RATE; Value: 49.5; Range: >35; Status: F Test: SODIUM LEVEL; Value: 142; Range: 136-145; Units: MEQ/L; Status: F Test: POTASSIUM SERUM; Value: 5.1; Range: 3.5-5.1; Units: MEQ/L; Status: F Test: CHLORIDE LEVEL; Value: 104; Range: 98-107; Units: MEQ/L; Status: F Test: CARBON DIOXIDE LEVEL; Value: 28; Range: 21-32; Units: MEQ/L; Status: F Test: ANION GAP; Value: 10; Range: 8-16; Units: MEQ/L; Status: F Test: CALCIUM LEVEL; Value: 8.4; Range: 8.8-10.2; Abnormal: Below low normal; Units: MG/DL; Status: F Test Note: ; Units are mL/min/1.73 m2 Chronic Kidney Disease Staging per NKF: Stage I & II GFR >=60 Normal to Mildly Decreased Stage III GFR 30-59 Moderately Decreased Stage IV GFR 15-29 Severely Decreased Stage V GFR <15 Very Little GFR Left ESRD GFR <15 on [place] [facility] Lab Order: Salicylate Level; SPEC'M 09/20/16 20:46 Test: SALICYLATE LEVEL; Value: < 1.7; Range: 5.0-30.0; Abnormal: Below low normal; Units: MG/DL; Status: F Lab Order: Thyroid Stimulating Hormone; SPEC'M 09/20/16 20:46 Test: THYROID STIMULATING HORMONE; Value: 1.750; Range: 0.358-3.740; Units: uIU/ML; Status: F Lab Order: Troponin; SPEC'M 09/20/16 20:46 Test: TROPONIN I; Value: 0.04; Range: < 0.10; Units: NG/ML; Status: F Test Note: ; Troponin I Reference Interval for [email or web address] LOCI: 99th Percentile= 0.00-0.045 ng/ml Risk Stratification: <= 0.10 ng/ml Decreased Risk for Adverse Clinical Events. 0.10-1.50 ng/ml Increased Risk for Adverse Clinical Events. Evaluation of additional criterion and/or repeat testing in 2-6 hours is suggested to rule out myocardial damage. >= 1.50 ng/ml Indicative of Myocardial Injury. Lab Order: Urinalysis; SPEC'M 09/20/16 20:46 Test: APPEARANCE, URINE; Value: CLEAR; Range: CLEAR; Status: F Test: COLOR, URINE; Value: YELLOW; Range: YELLOW; Status: F Test: PH,URINE; Value: 5.0; Range: 5.0-9.0; Units: UNITS; Status: F Test: SPECIFIC GRAVITY URINE AUTO; Value: 1.009; Range: 1.002-1.035; Status: F Test: PROTEIN, URINE AUTO; Value: NEGATIVE; Range: NEGATIVE; Units: mg/dL; Status: F Test: GLUCOSE, URINE (UA) AUTO; Value: 3+; Range: NEGATIVE; Abnormal: Above high normal; Units: mg/dL; Status: F Test: KETONE, URINE AUTO; Value: NEGATIVE; Range: NEGATIVE; Units: mg/dL; Status: F Test: UROBILINOGEN, URINE AUTO; Value: 0.2; Range: 0.0-2.0; Units: mg/dL; Status: F Test: BILIRUBIN, URINE AUTO; Value: NEGATIVE; Range: NEGATIVE; Status: F Test: NITRITE, URINE AUTO; Value: NEGATIVE; Range: NEGATIVE; Status: F Test: LEUKOCYTE ESTERASE, URINE AUTO; Value: NEGATIVE; Range: NEGATIVE; Status: F Test: BLOOD, URINE BLOOD; Value: NEGATIVE; Range: NEGATIVE; Status: F Test: WBC, URINE AUTO; Value: 0; Range: 0-3; Units: /HPF; Status: F Test: RBC, URINE AUTO; Value: 1; Range: 0-3; Units: /HPF; Status: F Test: BACTERIA, URINE AUTO; Value: NEGATIVE; Range: NEGATIVE; Status: F Test: SQUAMOUS EPITHELIAL CELL UR AU; Value: 0; Range: 0-6; Units: /HPF; Status: F Test: MUCUS, URINE; Value: SMALL; Range: NEGATIVE; Status: F Test: HYALINE CAST, URINE AUTO; Value: 0; Range: 0-1; Units: /LPF; Status: F Lab Order: Lactic Acid (Mejia tube on ice); SPEC'M 09/20/16 20:46 Test: LACTIC ACID LEVEL, LACTATE; Value: 2.3; Range: 0.4-2.0; Abnormal: Above upper panic limits; Units: MMOL/L; Status: F Lab Order: PLATELET ESTIMATE; SPEC'M 09/20/16 20:46 Test: PLATELET ESTIMATE; Value: DECREASED; Range: NORMAL; Status: F Lab Order: Fingerstick Blood Sugar; SPEC'M 09/20/16 21:24 Test: BEDSIDE GLUCOSE; Value: 283; Range: 83-110; Abnormal: Above high normal; Units: MG/DL; Status: F Lab Order: BRAIN NATIURETIC PEPTIDE; SPEC'M 09/20/16 20:46 Test: BRAIN NATRIURETIC PEPTIDE; Value: 192; Range: <100; Abnormal: Above high normal; Units: PG/ML; Status: F Radiology Order: CT Head Without Contrast Test: CT Head Without Contrast REASON FOR EXAMINATION: altered mental status; ; CT of the head; Clinical history: altered mental status.; Protocol: Multiple axial CT images obtained with 5 mm slice thickness were obtained through the head; without administration of contrast.; Findings: The ventricles and sulci are symmetric but prominent in size bilaterally. There are periven; tricular areas of low attenuation throughout the deep white matter. There is no evidence of acute hem; orrhage or infarct. There is no midline shift, mass effect, or extra-axial fluid collection. The osse; ous structures are unremarkable. The visualized paranasal sinuses and mastoid air cells are clear.; Impression: No acute hemorrhage or infarct. 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 Lung ortega demonstrate chronic changes without acute consolidation,; effusion, or pneumothorax. Skeletal structures are intact.; ; Impression:; Chronic stable changes. No acute cardiopulmonary process appreciated.; ; ; Signed by; Werner Jack MD 09/20/2016 11:08 P; Outcome: 22:06 Decision to Hospitalize by Provider. teddy 09/21 01:40 Discharge Assessment: patient administered narcotics - no. The following High Risk [facility] Discharge criteria are identified: None. Admitted to Med/Surg accompanied by tech, family with patient, via stretcher, with oxygen, with chart. Condition: good Condition: stable. No special radiology studies were completed. Property :Personal belongings accompany Pt. 01:[address] ED[address] [facility] Signatures: Dispatcher [employer] EDMS Maura Spears, Reg Reg gb Cesar Lozano, REHABILITATION THERAPIST REHABILITATION THERAPIST Margaret Cruz RN RN sls1 Annabelle Lozano, SHERIFF DETECTIVE SHERIFF DETECTIVE tmm1 Renetta Rushing, SHERIFF DETECTIVE SHERIFF DETECTIVE ls3 Serafin Collins, SHERIFF DETECTIVE SHERIFF DETECTIVE Jenni Velasquez Yu ys2 Hanny MartinezRN RN kas2 Alia Romero,RN RN jp6 Corrections: (The following items were deleted from the chart) 09/20 23:57 23:55 General: Appears in no apparent distress, comfortable, well nourished, well kas2 groomed, Behavior is appropriate for age, cooperative, drowsy, [facility] 23:57 23:55 Pain: Denies pain. [facility] 23:57 23:55 Neurological: Level of Consciousness is awake, alert, obeys commands, Oriented to [facility] person, place, time, [facility] : 23:55 Cardiovascular: Capillary refill < 3 seconds Heart tones present Rhythm is sinus [facility] tachycardia No ectopy. [facility] :57 23:55 Respiratory: Airway is patent Respiratory effort is even, unlabored, Respiratory [facility] pattern is regular, symmetrical, Breath sounds are clear bilaterally. Breath sounds are diminished bilaterally. [facility] 23:55 Derm: Skin is intact, is healthy with good turgor, Skin is dry, Skin is pink, kas2 warm & dry. Skin temperature is warm [facility] Chart Complete MTDD
--- NOTE | 2016-09-23 02:44 | EDDOCDS ---
Physician Documentation [facility] Name: Curt Ledesma Age: 81 yrs Sex: Male : 1935 Arrival Date: 09/20/2016 Time: 19:41 Bed 8 Private MD: Edwin García MD Disposition: 09/20/16 22:06 Hospitalization ordered by Lisa Nunez for Inpatient Admission. Preliminary diagnosis are Fever, unspecified, Pneumonia, unspecified organism. - Bed requested for 4 [place]. - Status is Inpatient Admission. kas2 - Condition is Stable. - Problem is an acute exacerbation. - Symptoms are unchanged. Historical: - Allergies: no known allergies; - Home Meds: 1. carbidopa-levodopa 25-100 mg Oral tab 2 tabs 4 times per day 2. glipizide 5 mg Oral tab 1 tab once daily 3. glipizide 5 mg Oral tab .5 tab once daily 4. Lasix 40 mg Oral tab 1 tab once daily 5. Lasix 20 mg Oral tab 1 tab once daily 6. potassium chloride 20 mEq Oral TbTQ 1 tab once daily 7. primidone 50 mg Oral tab 1 tabs bid 8. ropinirole 2 mg oral Tb24 2 tabs once daily 9. valsartan 80 mg oral tab 1 tab 2 times per day 10. Zebeta 5 mg oral tab 0.5 tab bid 11. immodium 1 bid 12. simvastatin 20 mg Oral tab 1 tab once daily 13. Aspirin Low Dose 81 mg oral TbEC 1 tab once daily 14. Vitamin C 100 mg Oral chew 15. vitamin E 400 unit Oral tab 16. metaxalone 800 mg oral tab .5 tab bid 17. Tylenol 500mg q 4hrs prn Oral 18. nitroglycerin 0.4 mg SL subl 1 tab every 5 minutes 19. vitamin [id number] im 20. Vitamin D 1 weekly Oral - PMHx: Diabetes - NIDDM: uncontrolled; Hypercholesterolemia; Hypertension; Myocardial infarction; defibrillator; Osteoarthritis; - PSHx: none; - Social history: Smoking status: Patient states was never smoker of tobacco. No barriers to communication noted. - Family history: Not pertinent. - : The pt / caregiver states he / she is not on anticoagulants. Home medication list is obtained from the patient. - Exposure Risk Screening:: None identified. Vital Signs: 09/20 19:50 BP 135 / 63; Pulse 111; Resp 20; Temp 102.5(O); Pulse Ox 96% on R/A; Weight 104.33 kg / ls3 230.01 lbs; Height 5 ft. 4 in. (162.56 cm); Pain 0/10; 20:39 BP 154 / 58 (auto/); kas2 20:40 Pulse 110 MON; kas2 20:59 BP 119 / 60 (auto/); kas2 20:59 Pulse 106 MON; kas2 21:07 Pulse 104 MON; kas2 21:09 BP 103 / 53 (auto/); kas2 21:24 BP 101 / 54 (auto/); kas2 21:24 Pulse 100 MON; Pulse Ox 99% ; kas2 21:39 BP 98 / 53 (auto/); kas2 21:39 Pulse 100 MON; Pulse Ox 95% ; kas2 21:54 BP 114 / 57 (auto/); kas2 21:54 Pulse 98 MON; Pulse Ox 99% ; kas2 22:14 Temp 101.1(TE); ls3 22:24 BP 98 / 70 (auto/); kas2 22:24 Pulse 96 MON; Pulse Ox 99% ; kas2 22:24 Resp 18; kas2 22:39 BP 95 / 50 (auto/); kas2 22:39 Pulse 96 MON; Pulse Ox 97% ; kas2 22:54 BP 99 / 57 (auto/); kas2 22:54 Pulse 96 MON; Pulse Ox 98% ; kas2 23:18 BP 77 / 49 (auto/); kas2 23:18 Pulse 92 MON; Pulse Ox 96% ; kas2 23:24 BP 78 / 49 (auto/); kas2 23:24 Pulse 92 MON; Pulse Ox 96% ; kas2 23:39 BP 102 / 58 (auto/); kas2 23:39 Pulse 92 MON; Pulse Ox 100% ; kas2 23:54 BP 104 / 54 (auto/); kas2 23:54 Pulse 90 MON; Pulse Ox 100% ; kas2 09/21 00:09 BP 105 / 55 (auto/); kas2 00:09 Pulse 90 MON; Pulse Ox 99% ; kas2 00:47 BP 103 / 52; Pulse 90; Resp 18; Pulse Ox 99% on 4 lpm NC; Pain 0/10; kas2 00:54 BP 95 / 52 (auto/); kas2 00:54 Pulse 88 MON; Pulse Ox 98% ; kas2 01:09 BP 105 / 55 (auto/); [facility] 01:09 Pulse 86 MON; Pulse Ox 98% ; [facility] 01:16 Temp 100.0(TE); [facility] 01:16 Pain 0/10; [facility] 09/20 19:50 Body Mass Index 39.48 (104.33 kg, 162.56 cm) ls3 MDM: 09/20 20:16 Acetaminophen Tablet 975 mg PO once ordered. ke 20:16 Automotive L[employer] Technician/Pulse Ox/q 15 min VS ordered. ke 20:16 Accucheck ordered. ke 20:16 IV Saline Lock ordered. ke 20:16 Oxygen at 4L/Min NC or Home dosage ordered. ke 20:16 Rhythm Strip to chart ordered. ke 20:16 Straight cath ordered. ke 20:16 NS 0.9% 1000 ml IV at 100 mL/hr continuous ordered. ke 20:18 Acetaminophen Level Ordered. EDMS 20:18 CBC with Diff Ordered. EDMS 20:18 Cardiac Injury Profile Ordered. EDMS 20:18 Liver Profile Ordered. EDMS 20:18 MED Profile Ordered. EDMS 20:18 Salicylate Level Ordered. EDMS 20:18 Thyroid Stimulating Hormone Ordered. EDMS 20:18 Troponin Ordered. EDMS 20:18 Urinalysis Ordered. EDMS 20:18 Urine Culture Ordered. EDMS 20:18 Chest, 1 View Ordered. EDMS 20:18 CT Head Without Contrast Ordered. EDMS 20:18 ECG WITH READING ER PHYS+CARDIAG ordered. EDMS 20:26 Lactic Acid (Mejia tube on ice) Ordered. EDMS 21:01 Financial registration complete. gjb 21:07 DIFFERENTIAL NO CHARGE Ordered. EDMS 21:07 PLATELET ESTIMATE Ordered. EDMS 21:08 [facility] – [place] Payment Agreement was scanned into Grid2020 and attached to record. gjb 21:32 Fingerstick Blood Sugar Ordered. EDMS 21:40 Acetaminophen Level Reviewed. ke 21:40 CBC with Diff Reviewed. ke 21:40 Liver Profile Reviewed. ke 21:40 MED Profile Reviewed. ke 21:40 Salicylate Level Reviewed. ke 21:40 Lactic Acid (Mejia tube on ice) Reviewed. ke 21:40 Fingerstick Blood Sugar Reviewed. ke 21:40 Cardiac Injury Profile Reviewed. ke 21:40 Thyroid Stimulating Hormone Reviewed. ke 21:40 Troponin Reviewed. ke 21:40 PLATELET ESTIMATE Reviewed. ke 21:56 Urinalysis Reviewed. ke 21:56 CT Head Without Contrast Reviewed. ke 22:01 levofloxacin 500 mg IVPB once over 60 mins ordered. ke 22:07 BED REQUEST+ADM ordered. EDMS 22:41 -Blood Culture (Adults Only), peripheral from different site, or from device/port/PICC ke etc. if present ordered. 22:42 -Blood Culture Ordered. EDMS 22:44 -Blood Culture (Adults Only), peripheral from different site, or from device/port/PICC tmm1 etc. if present complete. 22:46 BLOOD CULTURES Ordered. EDMS 23:33 NS 0.9% 1000 ml IV at bolus once ordered. ke 09/21 00:56 BRAIN NATIURETIC PEPTIDE Ordered. EDMS 01:03 COMPLETE BLOOD COUNT Ordered. EDMS 01:03 BASIC METABOLIC PROFILE Ordered. EDMS 01:03 PHYSICAL THERAPY EVAL & TREAT ordered. EDMS 01:04 Admission / Observation Status ordered. EDMS 01:04 CONSISTENT CARBOHYDRATES ordered. EDMS 01:07 PRIMIDONE (MYSOLINE) LEVEL Ordered. EDMS 01:[address] GR[address] Ordered. EDMS 07:13 T-Sheet-- Draft Copy was scanned into Grid2020 and attached to record. 11:50 ECG/EKG was scanned into Grid2020 and attached to record. gb 11:50 Radiology Report was scanned into Grid2020 and attached to record. 09/22 12:50 PCR was scanned into Grid2020 and attached to record. Point of Care Testing: Blood Glucose: 09/20 20:03 Blood Glucose: 409 mg/dL; kas2 21:25 Blood Glucose: 283 mg/dL; kas2 Ranges: Administered Medications: 20:29 Drug: Acetaminophen 975 mg [acetaminophen 325 mg tablet (3 tabs)] Route: PO; jp6 20:53 Drug: NS 0.9% 1000 ml [sodium chloride 0.9 % intravenous solution] Route: IV; Rate: 100 kas2 mL/hr; Site: right antecubital; 22:09 Drug: levofloxacin 500 mg [levofloxacin 500 mg/100 mL in 5 % dextrose intravenous kas2 piggyback] Route: IVPB; Infused Over: 60 mins; Site: right antecubital; 23:50 Drug: NS 0.9% 1000 ml [sodium chloride 0.9 % intravenous solution] Route: IV; Rate: kas2 bolus; Site: right antecubital; Signatures: Dispatcher [employer] EDMS Maura Spears, Isidro Reg gb Cesar Lozano, SHEAR TENDER SHEAR TENDER ke Michael Lozanosa, LICENSED PSYCHIATRIC TECHNICIAN LICENSED PSYCHIATRIC TECHNICIAN tmm1 Jenni Acuna Kim,KENYON RN kas2 Alia Romero,RN RN jp6 The chart was reviewed and I authenticate all verbal orders and agree with the evaluation and treatment provided.Attachments: 21:08 [facility] Payment Agreement gjb 09/21 07:13 T-Sheet-- Draft Copy gb 11:50 ECG/EKG gb Chart Complete MTDD
[2016-09-23] MEDS: cefTRIAXone SOD 2 GM in D5W MINI-BAG PLUS 50 ML IV SCH ×2 (03:42→14:13)
[2016-09-23] MEDS: HEPARIN SOD (PORCINE) 5000 UNITS/ML VIAL SC SCH ×3 (05:50→22:36)
[2016-09-23 06:00] VITALS: BP 130/63
[2016-09-23 07:00] LABS: MEAN CORPUSCULAR HEMOGLOBIN 31.6 pg (27.0-33.0); MEAN CORPUSCULAR HGB CONC 34.9 g/dl (32.0-36.5); MEAN CORPUSCULAR VOLUME 90.6 fl (80.0-96.0); RED CELL DISTRIBUTION WIDTH 14.4 % (11.5-14.5); WHITE BLOOD COUNT 5.8 K/mm3 (4.0-10.0)
[2016-09-23 07:11] LABS: CALCIUM LEVEL 8.5 MG/DL (8.8-10.2); CREATININE FOR GFR 1.28 MG/DL (0.70-1.30); GLOMERULAR FILTRATION RATE 57.1 (>35); POTASSIUM SERUM 3.9 MEQ/L (3.5-5.1)
[2016-09-23] MEDS: FUROSEMIDE 40 MG TAB PO SCH ×2 (08:41→16:49)
[2016-09-23] MEDS: PRIMIDONE 50 MG TAB PO SCH ×2 (08:41→20:50)
[2016-09-23] MEDS: SINEMET 25-100 MG TAB PO SCH ×4 (08:41→20:51)
[2016-09-23] MEDS: BISOPROLOL FUM 2.5 MG PER 1/2TAB PO SCH ×2 (08:41→20:51)
[2016-09-23] MEDS: rOPINIRole 1MG TAB PO SCH ×2 (08:41→16:49)
[2016-09-23] MEDS: POTASSIUM CHLORIDE 10 MEQ SR TABLET PO SCH (08:41)
[2016-09-23] MEDS: NYSTATIN CREAM 15 GM TOP SCH ×2 (08:42→20:52)
[2016-09-23] MEDS: HumaLOG INSULIN (NovoLOG) PER UNIT SC SCH ×4 (08:42→21:00)
--- NOTE | 2016-09-23 09:31 | IPNPDOC ---
Assessment/Plan Date Seen The patient was seen on 09/23/16. Problems Problems: (1) SIRS (systemic inflammatory response syndrome) Status: Acute Response to Treatment: Stable, Improving Problem Text: Leukocytosis and fever of unclear etiology U/A unremarkable, U/C pending CXR negative B/C pending Has some BL Le venous stasis dermatitis with chronic venous stasis ulcers that actually look better than baseline for him - This may be a source for infection.. For now he is being covered by Rocephin empirically. WBC trending down, Follow trend of temp. Repeat Lactic Acid level today Get Echo to evaluate for Endocarditis 09/22/16 - WBC down to 7. ECHO Mild aortic valvular sclerosis without stenosis and only trace insufficiency. Mild mitral annular calcification without inflow tract obstruction and very mild insufficiency. Could not rule out a sessile vegetation but no pedunculated mass. Normal left ventricular size, and wall thickness with distal septal / anterior and apical hypokinesis suggestive of prior injury with at least mild impairment of global resting systolic function. Borderline left atrial enlargement with Doppler evidence of an impairment of LV diastolic function and at least mildly elevated mean left atrial pressure. Moderately dilated right heart chambers with Doppler evidence of at least moderately severe pulmonary hypertension. Moderately dilated inferior vena cava (IVC) with absent respiratory collapse consistent with elevated central venous pressure. 09/23/16 - On IV Ceftriaxone. Wound cx grew Strep group G. Blood cx x 2 neg after 48 hrs. Urine cx neg. (2) Venous stasis ulcers Status: Chronic Response to Treatment: Stable Problem Text: Continue Lasix BID (3) Parkinson disease Status: Chronic Response to Treatment: Worse Problem Text: He has been declining - Normally independent at home with 2 sons who are very involved and who check on him and help him throughout the day Order PT/OT PFS consulted and made aware of need to assist with dispo planning - may need St rehab (4) Diabetes type 2, controlled Status: Chronic Response to Treatment: Worse Problem Text: Normally controlled on GLipizide BS high due to illness Start FSBS with SSI coverage for now (5) CAD (coronary artery disease), [place] coronary artery Status: Chronic Response to Treatment: Stable (SQ heparin) Plan / VTE VTE Prophylaxis Ordered?: Yes (SQ heparin) Plan Therapy: PT, OT Subjective Review of Systems CC/HPI The patient is a 81-year-old male admitted with a reason for visit of Altered Mental State. Events since last encounter Pt is sitting up in a chair. States he is feeling a little better. Denies CP, SOB, Abd pain. Constitutional: Denies: Chills, Fever Pulmonary: Denies: Dyspnea Cardiovascular: Denies: Chest Pain, Palpitations Gastrointestinal: Denies: Abdominal Pain, Nausea, Vomiting Objective Physical Examination General Exam: Positive: Alert, No Acute Distress Chest Exam: Positive: Clear to auscultation, Normal air movement Heart Exam: Positive: Rate Normal, Negative: Murmurs Abdomen Exam: Positive: Normal bowel sounds, Soft, Negative: Tenderness Extremity Exam: Positive: Edema (trace edema) Skin Exam: Positive: Other skin issue (BL lower extremity erythema on shins, with venous stasis ulcers that are dry ) Vital Signs/I&O Vital Signs Date Time Temp Pulse Resp B/P Pulse Ox O2 Delivery O2 Flow Rate FiO2 09/23/16 08:41 80 130/63 09/23/16 06:00 99.0 18 95 Room Air 09/21/16 22:00 2.0 I&O- Last 24 Hours up to 6 AM 09/23/16 06:00 Intake Total 1150 ml Output Total 250 ml Balance 900 ml Laboratory Data Labs 24H Laboratory Tests 2 09/22/16 12:00: Bedside Glucose (Misc Panel) 180H 09/22/16 16:27: Bedside Glucose (Misc Panel) 258H 09/22/16 20:47: Bedside Glucose (Misc Panel) 233H 09/23/16 06:29: Anion Gap 9, Blood Urea Nitrogen 32H, Creatinine 1.28, Sodium Level 142, Potassium Level 3.9, Chloride Level 106, Carbon Dioxide Level 27, Calcium Level 8.5L, Glomerular Filtration Rate 57.1 CBC/BMP Laboratory Tests 09/23/16 06:29 Calcium Level 8.5 L, Red Blood Count 3.81 L, Mean Corpuscular Volume 90.6, Mean Corpuscular Hemoglobin 31.6, Mean Corpuscular Hemoglobin Concent 34.9, Red Cell Distribution Width 14.4 FSBS Laboratory Tests Test 09/22/16 12:00 09/22/16 16:27 09/22/16 20:47 Range/Units Bedside Glucose (Misc Panel) 180 258 233 83-110 MG/DL Microbiology Microbiology 09/21/16 Blood Culture - Preliminary, Resulted No Growth after 48 hours. All Specime... 09/20/16 Blood Culture - Preliminary, Resulted No Growth after 48 hours. All Specime... 09/20/16 Urine Culture - Final, Complete 09/21/16 Gram Stain - Final, Complete 09/21/16 Wound Culture - Final, Complete Streptococcus Group G Terry Underwood RPA-C Sep 23, 2016 09:31
[2016-09-23 14:00] VITALS: BP 114/59
[2016-09-23] MEDS: SIMVASTATIN 20 MG TAB PO SCH (20:50)
[2016-09-23] MEDS: VITAMIN E 400 INTERNATIONAL UNITS CAP PO SCH (20:50)
[2016-09-23] MEDS: ASPIRIN 81 MG ENTERIC TAB PO SCH (20:50)
[2016-09-23] MEDS: ASCORBIC ACID 500 MG TAB PO SCH (20:50)
[2016-09-23 22:00] VITALS: BP 114/56
[2016-09-24] MEDS: cefTRIAXone SOD 2 GM in D5W MINI-BAG PLUS 50 ML IV SCH (02:46)
[2016-09-24] MEDS: ACETAMINOPHEN TAB 650MG DOSE (2X325MG) PO PRN (04:46)
[2016-09-24] MEDS: HEPARIN SOD (PORCINE) 5000 UNITS/ML VIAL SC SCH ×3 (05:49→22:16)
[2016-09-24 06:00] VITALS: BP 119/65
[2016-09-24 06:27] LABS: MEAN CORPUSCULAR HEMOGLOBIN 31.4 pg (27.0-33.0); MEAN CORPUSCULAR HGB CONC 34.8 g/dl (32.0-36.5); MEAN CORPUSCULAR VOLUME 90.2 fl (80.0-96.0); RED CELL DISTRIBUTION WIDTH 13.2 % (11.5-14.5); WHITE BLOOD COUNT 4.9 K/mm3 (4.0-10.0)
[2016-09-24 06:48] LABS: CALCIUM LEVEL 8.4 MG/DL (8.8-10.2); CREATININE FOR GFR 1.29 MG/DL (0.70-1.30); GLOMERULAR FILTRATION RATE 56.6 (>35); POTASSIUM SERUM 3.8 MEQ/L (3.5-5.1)
[2016-09-24] MEDS: HumaLOG INSULIN (NovoLOG) PER UNIT SC SCH ×4 (08:17→21:00)
[2016-09-24] MEDS: PRIMIDONE 50 MG TAB PO SCH ×2 (08:17→20:33)
[2016-09-24] MEDS: SINEMET 25-100 MG TAB PO SCH ×4 (08:18→20:33)
[2016-09-24] MEDS: POTASSIUM CHLORIDE 10 MEQ SR TABLET PO SCH (08:18)
[2016-09-24] MEDS: FUROSEMIDE 40 MG TAB PO SCH ×2 (08:18→16:54)
[2016-09-24] MEDS: rOPINIRole 1MG TAB PO SCH ×2 (08:18→16:54)
[2016-09-24] MEDS: BISOPROLOL FUM 2.5 MG PER 1/2TAB PO SCH ×2 (08:21→20:32)
[2016-09-24] MEDS: NYSTATIN CREAM 15 GM TOP SCH ×2 (08:22→20:33)
--- NOTE | 2016-09-24 10:30 | IPNPDOC ---
Assessment/Plan Date Seen The patient was seen on 09/24/16. Family Medicine Attending Note: Patient seen and examined; d/w Amparo Camacho and I agree with her note below. Patient stable for potential d/c to STR after he is seen by PT. Converted to PO antibiotics today. I had a lengthy discussion with the family regarding his placement options and next steps - they are going to continue to work with social contact worker on rehab placement. (KES) Problems Problems: (1) SIRS (systemic inflammatory response syndrome) Status: Acute Response to Treatment: Stable, Improving Problem Text: Leukocytosis and fever of unclear etiology U/A unremarkable, U/C pending CXR negative B/C pending Has some BL Le venous stasis dermatitis with chronic venous stasis ulcers that actually look better than baseline for him - This may be a source for infection.. For now he is being covered by Rocephin empirically. WBC trending down, Follow trend of temp. Repeat Lactic Acid level today Get Echo to evaluate for Endocarditis 09/22/16 - WBC down to 7. ECHO Mild aortic valvular sclerosis without stenosis and only trace insufficiency. Mild mitral annular calcification without inflow tract obstruction and very mild insufficiency. Could not rule out a sessile vegetation but no pedunculated mass. Normal left ventricular size, and wall thickness with distal septal / anterior and apical hypokinesis suggestive of prior injury with at least mild impairment of global resting systolic function. Borderline left atrial enlargement with Doppler evidence of an impairment of LV diastolic function and at least mildly elevated mean left atrial pressure. Moderately dilated right heart chambers with Doppler evidence of at least moderately severe pulmonary hypertension. Moderately dilated inferior vena cava (IVC) with absent respiratory collapse consistent with elevated central venous pressure. 09/23/16 - On IV Ceftriaxone. Wound cx grew Strep group G. Blood cx x 2 neg after 48 hrs. Urine cx neg. 09/24 - Change Ceftriaxone to po Ceftin. (2) Venous stasis ulcers Status: Chronic Response to Treatment: Stable Problem Text: Continue Lasix BID (3) Parkinson disease Status: Chronic Response to Treatment: Worse Problem Text: He has been declining - Normally independent at home with 2 sons who are very involved and who check on him and help him throughout the day Order PT/OT PFS consulted and made aware of need to assist with dispo planning - may need St rehab 09/24 - Plan to STR. (4) Diabetes type 2, controlled Status: Chronic Response to Treatment: Worse Problem Text: Normally controlled on GLipizide BS high due to illness Start FSBS with SSI coverage for now (5) CAD (coronary artery disease), [place] coronary artery Status: Chronic Response to Treatment: Stable (SQ heparin) Plan / VTE VTE Prophylaxis Ordered?: Yes (SQ heparin) Plan Therapy: PT, OT Subjective Review of Systems CC/HPI Pt's son at bedside. They are anxious for the pt to have a plan for transfer to [facility]. The pt has some discomfort in BLE, that has been there for sometime, and symptoms seem to come and go. Constitutional: Denies: Chills, Fever Pulmonary: Denies: Cough, Dyspnea Cardiovascular: Denies: Chest Pain, Palpitations Gastrointestinal: Denies: Diarrhea, Nausea, Vomiting Neurological: Reports: Weakness Psych: Denies: Mood Normal Objective Physical Examination General Exam: Positive: Alert, No Acute Distress Chest Exam: Positive: Clear to auscultation, Normal air movement Heart Exam: Positive: Rate Normal, Negative: Murmurs Abdomen Exam: Positive: Normal bowel sounds, Soft, Negative: Tenderness Extremity Exam: Positive: Edema (1 mm pitting pedal/ pretibial edema) Skin Exam: Positive: Other skin issue (BL lower extremity erythema on shins, with venous stasis ulcers that are dry ) Vital Signs/I&O Vital Signs Date Time Temp Pulse Resp B/P Pulse Ox O2 Delivery O2 Flow Rate FiO2 09/24/16 08:21 84 122/60 09/24/16 06:00 97.2 18 94 Room Air 09/21/16 22:00 2.0 I&O- Last 24 Hours up to 6 AM 09/24/16 06:00 Intake Total 600 ml Output Total 500 ml Balance 100 ml Laboratory Data Labs 24H Laboratory Tests 2 09/23/16 11:35: Bedside Glucose (Misc Panel) 302H 09/23/16 16:31: Bedside Glucose (Misc Panel) 175H 09/23/16 20:25: Bedside Glucose (Misc Panel) 226H 09/24/16 05:38: Anion Gap 8, Blood Urea Nitrogen 30H, Creatinine 1.29, Sodium Level 139, Potassium Level 3.8, Chloride Level 102, Carbon Dioxide Level 29, Calcium Level 8.4L, Glomerular Filtration Rate 56.6 CBC/BMP Laboratory Tests 09/24/16 05:38 Calcium Level 8.4 L, Red Blood Count 4.13 L, Mean Corpuscular Volume 90.2, Mean Corpuscular Hemoglobin 31.4, Mean Corpuscular Hemoglobin Concent 34.8, Red Cell Distribution Width 13.2 FSBS Laboratory Tests Test 09/23/16 11:35 09/23/16 16:31 09/23/16 20:25 Range/Units Bedside Glucose (Misc Panel) 302 175 226 83-110 MG/DL Microbiology Microbiology 09/21/16 Blood Culture - Preliminary, Resulted No Growth after 72 hours. All specime... 09/20/16 Blood Culture - Preliminary, Resulted No Growth after 72 hours. All specime... 09/20/16 Urine Culture - Final, Complete 09/21/16 Gram Stain - Final, Complete 09/21/16 Wound Culture - Final, Complete Streptococcus Group G AMPARO CAMACHO PA-C Sep 24, 2016 10:30 FREDA CLINTON MD Sep 24, 2016 11:43
[2016-09-24] MEDS: CEFUROXIME 500 MG TAB PO SCH ×2 (13:14→20:31)
[2016-09-24 14:00] VITALS: BP 119/58
--- NOTE | 2016-09-24 19:45 | DSES ---
DATE OF ADMISSION: 09/21/2016 DATE OF DISCHARGE: 09/24/2016 PRIMARY CARE PHYSICIAN: Edwin García MD ATTENDING TODAY: Katherine Paul MD HISTORY: This is an 81-year-old male patient who has Parkinson's disease, who presented with acute onset of confusion. He had been declining at home with increased difficulty ambulating throughout his house. He was admitted to the hospital for acute on chronic diastolic and systolic congestive heart failure and altered mental status. Did have an elevated white blood cell count, elevated lactic acid and a fever on presentation. During his hospitalization, he remained medically stable. His white count has normalized as has his lactic acid. He also had mild acute renal failure, which has resolved. He was started on IV Rocephin. His blood cultures, urine cultures were negative. His wound culture did grow out streptococcus group G. This was from a lower extremity wound. Will transition him from IV ceftriaxone to oral Ceftin. He is being made longterm facility (SNF) today with the anticipation that he will require short term rehabilitation prior to returning home. Both the patient and family are on board with this. [facility], as well as physical therapy will continue to work with the patient. His discharge diagnoses include: 1. Sepsis on admission, requiring blood, urine, and wound cultures, treated with IV Rocephin 2. Venous stasis ulcers. 3. Acute on chronic diastolic and systolic congestive heart failure. 4. Parkinson's disease. 5. Diabetes type 2. 6. Coronary artery disease. DISCHARGE MEDICATIONS AND PLAN: Will be summarized at the time of discharge from the hospital. [place]
[2016-09-24] MEDS: VITAMIN E 400 INTERNATIONAL UNITS CAP PO SCH (20:32)
[2016-09-24] MEDS: ASCORBIC ACID 500 MG TAB PO SCH (20:32)
[2016-09-24] MEDS: SIMVASTATIN 20 MG TAB PO SCH (20:32)
[2016-09-24] MEDS: ASPIRIN 81 MG ENTERIC TAB PO SCH (20:33)
[2016-09-24 22:00] VITALS: BP 111/56
[2016-09-25 00:15] LABS: PHENOBARBITAL (PRIMIDONE) 3 ug/mL (15-40)
[2016-09-25] MEDS: HEPARIN SOD (PORCINE) 5000 UNITS/ML VIAL SC SCH (05:13)
[2016-09-25 06:00] VITALS: BP 123/71
[2016-09-25 06:49] LABS: MEAN CORPUSCULAR HEMOGLOBIN 31.8 pg (27.0-33.0); MEAN CORPUSCULAR VOLUME 90.9 fl (80.0-96.0); RED CELL DISTRIBUTION WIDTH 13.1 % (11.5-14.5); WHITE BLOOD COUNT 5.3 K/mm3 (4.0-10.0)
[2016-09-25 07:14] LABS: ANION GAP 8 MEQ/L (8-16); BLOOD UREA NITROGEN 31 MG/DL (7-18); CALCIUM LEVEL 8.6 MG/DL (8.8-10.2); CARBON DIOXIDE LEVEL 31 MEQ/L (21-32); CHLORIDE LEVEL 104 MEQ/L (98-107); CREATININE FOR GFR 1.17 MG/DL (0.70-1.30); GLOMERULAR FILTRATION RATE > 60.0 (>35); GLUCOSE, FASTING 201 MG/DL (83-110); POTASSIUM SERUM 3.9 MEQ/L (3.5-5.1); SODIUM LEVEL 143 MEQ/L (136-145)
[2016-09-25] MEDS: FUROSEMIDE 40 MG TAB PO SCH (07:59)
[2016-09-25] MEDS: HumaLOG INSULIN (NovoLOG) PER UNIT SC SCH ×2 (07:59→12:15)
[2016-09-25] MEDS: CEFUROXIME 500 MG TAB PO SCH (07:59)
[2016-09-25] MEDS: ACETAMINOPHEN TAB 650MG DOSE (2X325MG) PO PRN (07:59)
[2016-09-25 08:00] VITALS: BP 123/71
[2016-09-25] MEDS: PRIMIDONE 50 MG TAB PO SCH (08:00)
[2016-09-25] MEDS: POTASSIUM CHLORIDE 10 MEQ SR TABLET PO SCH (08:00)
[2016-09-25] MEDS: BISOPROLOL FUM 2.5 MG PER 1/2TAB PO SCH (08:00)
[2016-09-25] MEDS: SINEMET 25-100 MG TAB PO SCH ×2 (08:00→12:15)
[2016-09-25] MEDS: rOPINIRole 1MG TAB PO SCH (08:00)
[2016-09-25] MEDS: NYSTATIN CREAM 15 GM TOP SCH (08:00)
[2016-09-25] MEDS ORDERED: NYST10CR TOP (09:57)
[2016-09-25] MEDS ORDERED: CEFT500T PO (09:57)
[2016-09-25] MEDS ORDERED: FURO40TA2 PO (09:58)
--- NOTE | 2016-09-25 10:17 | DSES ---
DATE OF ADMISSION: 09/21/2015 DATE OF DISCHARGE: ADDENDUM: Addendum is from 09/24/2016 to 09/25/2016. Patient has had an uneventful course since the previous dictation. He has a bed available at [facility] for subacute rehabilitation and will be discharged there today. His medications at this time include: - Ceftin 500 mg twice a day for five more days. - furosemide 40 mg twice a day, which is higher than his usual home dose of 40 mg in the morning and 20 mg at noon - nystatin to the groin creases twice a day - acetaminophen 5 mg every 4 hours as needed for pain - vitamin C 500 mg at bedtime - aspirin 81 mg a day - bisoprolol 2.5 mg twice a day - carbidopa-levadopa two tablets four times a day - vitamin D 50,000 international units weekly - glipizide 5 mg in the morning and 2.5 mg at bedtime - nitroglycerin sublingual as needed - potassium 20 mEq daily - primidone 50 mg twice a day - Requip 2 mg twice a day - simvastatin 20 mg at bedtime - vitamin E 400 units at bedtime His loperamide, metaxalone, and valsartan are all on hold. Discharge diagnoses are unchanged from the 09/24/2016 dictation.
== END 2016-09-25 13:05 | DRG 871 ==
LOC: M ED 19:41 → M ED INP 09-21 00:57 → M MSPAV 09-21 01:45
PROVIDERS: ADMIT Internal Medicine; ATTEND Family Medicine
DX: A41.9 Sepsis, unspecified organism (principal); I50.43 Acute on chronic combined systolic (congestive) and diastolic (congestive) heart failure; L97.919 Non-pressure chronic ulcer of unspecified part of right lower leg with unspecified severity; L97.929 Non-pressure chronic ulcer of unspecified part of left lower leg with unspecified severity; N17.9 Acute kidney failure, unspecified; I11.0 Hypertensive heart disease with heart failure; I25.2 Old myocardial infarction; G20 Parkinson's disease; R41.82 Altered mental status, unspecified; E11.9 Type 2 diabetes mellitus without complications; E78.00 Pure hypercholesterolemia, unspecified; M19.90 Unspecified osteoarthritis, unspecified site; I87.2 Venous insufficiency (chronic) (peripheral); I25.10 Atherosclerotic heart disease of native coronary artery without angina pectoris; Z95.810 Presence of automatic (implantable) cardiac defibrillator; Z79.84 Long term (current) use of oral hypoglycemic drugs; Z79.899 Other long term (current) drug therapy

== ENCOUNTER → 2016-10-02 | Outpatient (REF) | payer MEDICARE ==
[~2016-10-02] MED LIST changes: +ACET50TAOT PO; +ASPI81TAEC PO; +BISO5TAB5 PO; +CARB25TA PO; +CEFT500T3 PO; +CYAN1000VL IM; +FURO40TA2 PO; +GLIP5TAB8 PO; +LASI20TA PO; +LASI40TA PO; +LOPE2TAB PO; +META800T82 PO; +NYST10CR TOP; +POTA10CA PO; +PRIM50TA6 PO; +VALS1TAB46 PO; +VITA-130 PO; +VITA50003 PO
[2016-10-05 00:08] LABS: VITAMIN E LEVEL 14.7 mg/L (5.3-17.5)
[2016-10-05 14:12] LABS: FOLATE 11.7 NG/ML; FREE T4 1.64 NG/DL (0.76-1.46)
== END ==
LOC: M LABNEURO 13:02
PROVIDERS: ATTEND Psychiatry & Neurology Neurology
DX: G62.9 Polyneuropathy, unspecified (principal); Z79.899 Other long term (current) drug therapy

== ENCOUNTER → 2016-10-18 | Outpatient (REF) ==
[2016-10-18 17:59] LABS: CALCIUM LEVEL 8.4 MG/DL (8.8-10.2); CREATININE FOR GFR 1.55 MG/DL (0.70-1.30); GLOMERULAR FILTRATION RATE 45.8 (>35); MAGNESIUM LEVEL 2.3 MG/DL (1.8-2.4); PHOSPHORUS LEVEL 3.3 MG/DL (2.5-4.9); POTASSIUM SERUM 4.4 MEQ/L (3.5-5.1)
== END ==
DX: I50.9 Heart failure, unspecified (principal)

== ENCOUNTER → 2016-10-23 | Outpatient (REF) ==
[2016-10-23 12:46] LABS: CALCIUM LEVEL 8.1 MG/DL (8.8-10.2); CREATININE FOR GFR 1.38 MG/DL (0.70-1.30); GLOMERULAR FILTRATION RATE 52.4 (>35); POTASSIUM SERUM 4.7 MEQ/L (3.5-5.1)
[2016-10-23 12:51] LABS: MEAN CORPUSCULAR HEMOGLOBIN 28.9 pg (27.0-33.0); MEAN CORPUSCULAR HGB CONC 33.3 g/dl (32.0-36.5); MEAN CORPUSCULAR VOLUME 86.6 fl (80.0-96.0); RED CELL DISTRIBUTION WIDTH 15.7 % (11.5-14.5); WHITE BLOOD COUNT 4.8 K/mm3 (4.0-10.0)
== END ==
DX: E11.9 Type 2 diabetes mellitus without complications (principal)

== ENCOUNTER → 2016-10-30 | Outpatient (REF) ==
[2016-10-30 10:57] LABS: MEAN CORPUSCULAR HEMOGLOBIN 29.4 pg (27.0-33.0); MEAN CORPUSCULAR HGB CONC 33.6 g/dl (32.0-36.5); MEAN CORPUSCULAR VOLUME 87.6 fl (80.0-96.0); RED CELL DISTRIBUTION WIDTH 16.3 % (11.5-14.5); WHITE BLOOD COUNT 3.4 K/mm3 (4.0-10.0)
[2016-10-30 11:49] LABS: CALCIUM LEVEL 8.2 MG/DL (8.8-10.2); CREATININE FOR GFR 1.51 MG/DL (0.70-1.30); GLOMERULAR FILTRATION RATE 47.2 (>35); POTASSIUM SERUM 4.5 MEQ/L (3.5-5.1)
== END ==
DX: E11.9 Type 2 diabetes mellitus without complications (principal)

== ENCOUNTER → 2016-11-06 | Outpatient (REF) | payer MEDICARE, BC ==
[~2016-11-06] MED LIST changes: +ACET-654 PO; +BISA10SU27 PR; +DOCU100C PO; +ENEMENE3 PR; +LISI2.5T3 PO; +MELA1LIQ2 PO; +MELA5TAB14 PO; +MILKSUS PO
[2016-11-06 12:08] LABS: CALCIUM LEVEL 8.3 MG/DL (8.8-10.2); CREATININE FOR GFR 1.29 MG/DL (0.70-1.30); GLOMERULAR FILTRATION RATE 56.6 (>35); POTASSIUM SERUM 4.2 MEQ/L (3.5-5.1)
[2016-11-06 12:12] LABS: MEAN CORPUSCULAR HEMOGLOBIN 28.7 pg (27.0-33.0); MEAN CORPUSCULAR HGB CONC 33.3 g/dl (32.0-36.5); MEAN CORPUSCULAR VOLUME 86.3 fl (80.0-96.0); RED CELL DISTRIBUTION WIDTH 16.2 % (11.5-14.5); WHITE BLOOD COUNT 4.9 K/mm3 (4.0-10.0)
== END ==
DX: E11.9 Type 2 diabetes mellitus without complications (principal)

== ENCOUNTER 2016-11-10 16:39 | Emergency (ER) | payer MEDICARE ==
[~2016-11-10 16:39] MED LIST changes: -ACET-654 PO; -BISA10SU27 PR; -DOCU100C PO; -ENEMENE3 PR; -LISI2.5T3 PO; -MELA1LIQ2 PO; -MELA5TAB14 PO; -MILKSUS PO
[2016-11-10 17:45] LABS: MEAN CORPUSCULAR HEMOGLOBIN 28.7 pg (27.0-33.0); MEAN CORPUSCULAR HGB CONC 33.4 g/dl (32.0-36.5); MEAN CORPUSCULAR VOLUME 85.8 fl (80.0-96.0); PLATELET COUNT, AUTOMATED 158 k/mm3 (150-450); RED CELL DISTRIBUTION WIDTH 16.1 % (11.5-14.5); WHITE BLOOD COUNT 5.9 K/mm3 (4.0-10.0)
[2016-11-10 18:02] LABS: ANISOCYTOSIS 1+; BASOPHILS 1 % (0-4); POIKILOCYTOSIS 1+
[2016-11-10 18:03] LABS: OVALOCYTES 1+
[2016-11-10 18:04] LABS: HYPOCHROMASIA 1+
[2016-11-10 18:09] LABS: ALBUMIN 3.6 GM/DL (3.2-5.2); ALBUMIN/GLOBULIN RATIO 1.03 (1.00-1.93); BILIRUBIN,TOTAL 0.6 MG/DL (0.2-1.0); CALCIUM LEVEL 8.4 MG/DL (8.8-10.2); CREATININE FOR GFR 1.46 MG/DL (0.70-1.30); GLOMERULAR FILTRATION RATE 49.1 (>35); POTASSIUM SERUM 4.1 MEQ/L (3.5-5.1); TOTAL PROTEIN 7.1 GM/DL (6.4-8.2)
--- NOTE | 2016-11-10 18:10 | REP ---
Clinical: Trauma. Comparison: 09/20/2016 . Findings: Age-related atrophy and microvascular ischemic changes are appreciated including old basal ganglia lacunar infarcts (left greater than right). The ventricles and sulci are symmetric. Mejia-white differentiation is maintained. There is no evidence for acute intracranial hemorrhage, mass/mass effect, pathology or infarction. No extra-axial fluid collection. Calvarium is intact. Paranasal sinuses and mastoid air cells are clear. Impression: Age related atrophy and microvascular ischemic changes. No acute intracranial hemorrhage, infarction, or mass/mass effect. Signed by Werner Jack MD 11/10/2016 06:01 P
--- NOTE | 2016-11-10 18:15 | REP ---
Clinical: Trauma. Technique: Axial noncontrast images from the skull base to the thoracic inlet with coronal and sagittal re-formations. Findings: There is no evidence for acute fracture / compression injury or subluxation. Advanced multilevel degenerative disc osteophyte complexes noted marginal and posterior osteophytosis, endplate sclerosis/irregularities and disc space narrowing as well as hypertrophic facet changes. Significant areas of canal stenosis to approximately 5-6 mm AP diameter most notably at the C3-4, C5-6, and C6-7 levels along with hypertrophic facet changes causing bilateral narrowing to the neural foramina. Paravertebral soft tissues without evidence for trauma/injury. Impression: Advanced multilevel degenerative changes as detailed above. No evidence for acute fracture / compression injury or acute subluxation. Signed by Werner Jack MD 11/10/2016 06:06 P
--- NOTE | 2016-11-10 18:16 | ECGEPIP ---
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
--- NOTE | 2016-11-10 18:20 | REP ---
Clinical: Trauma. Findings: The bilateral lung ortega demonstrate perihilar and lower lobe bronchiectasis with basilar fibrosis and interstitial changes. No focal consolidation/contusion, pleural effusion or pneumothorax. Tracheobronchial tree is patent. No evidence for mediastinal injury. Atherosclerotic changes to the coronary arteries and thoracic aorta without evidence for aneurysm. Heart is normal in size without pericardial effusion. Pacemaker identified. No axillary, hilar, or mediastinal adenopathy appreciated. Osseous structures demonstrate degenerative changes without evidence for trauma/injury. Limited evaluation of the upper abdomen demonstrates normal bilateral adrenal glands. Impression: 1. Chronic bibasilar changes. 2. No acute mediastinal or pleuroparenchymal trauma/injury or process. 3. Atherosclerotic changes to the thoracic aorta and coronary arteries. 4. Degenerative changes of the musculoskeletal structures without evidence for trauma/injury Signed by Werner Jack MD 11/10/2016 06:11 P
--- NOTE | 2016-11-10 18:51 | EDDOCDS ---
Nurse's Notes [facility] Name: Darnell Ledesma Age: 81 yrs Sex: Male : 1935 Arrival Date: 11/10/2016 Time: 16:39 Bed 15 Private MD: Diagnosis: Abrasion of scalp Presentation: 11/10 16:42 Presenting complaint: EMS states: Patient is resident of [address] While trying to go to the bathroom. Patient was not willing to wait and fell on his way to get to the bathroom. Patient has laceration to back of head. Adult Sepsis Screening: The patient does not have new or worsening altered mentation. Patient's respiratory rate is less than 22. Systolic blood pressure is greater than 100. Patient has a qSOFA score of 0- Negative Sepsis Screen. Suicide/Homicide risk assessment- the patient denies having any suicidal and/or homicidal ideations and does not present with any other emotional, behavioral or mental health complaints. Status: Patient is not a director of food and beverage services or dependent. Transition of care: patient was not received from another setting of care. 16:42 Acuity: KEN Level 3 hs1 16:42 Method Of Arrival: Ambulance hs1 Triage Assessment: 17:01 General: Appears in no apparent distress, Behavior is appropriate for age, cooperative. hs1 Pain: Location: scalp Pain currently is 3 out of 10 on a pain scale. Neurological: Level of Consciousness is awake, alert, obeys commands. Cardiovascular: Rhythm is regular. Respiratory: Airway is patent Respiratory effort is even, unlabored, Respiratory pattern is regular, symmetrical. Musculoskeletal: No deficits noted. cervical spine is non-tender. Injury Description: Abrasion sustained to scalp. Historical: - Allergies: no known allergies; - Home Meds: 1. ropinirole 2 mg oral Tb24 2 tabs once daily 2. Vitamin D 1 weekly Oral 3. simvastatin 20 mg Oral tab 1 tab once daily 4. primidone 50 mg Oral tab 1 tabs bid 5. Zebeta 5 mg oral tab 0.5 tab bid 6. Aspirin Low Dose 81 mg oral TbEC 1 tab once daily 7. melatonin 5 mg Oral tab 8. Colace 100 mg oral cap 1 cap 2 times per day 9. bisacodyl 10 mg Rectal supp 1 suppository as needed 10. lisinopril 2.5 mg Oral tab 1 tab once daily 11. Tylenol 325 mg oral tab 2 tabs every 4-6 hours 12. glipizide 5 mg Oral tab 0.5 tab AC 13. nitroglycerin 0.4 mg SL subl 1 tab every 5 minutes 14. Lasix 40 mg Oral tab 1 tab 2 times per day 15. carbidopa-levodopa 25-100 mg Oral tab 2 tabs 4 times per day - PMHx: defibrillator; Diabetes - NIDDM: uncontrolled; Hypercholesterolemia; Hypertension; Myocardial infarction; Osteoarthritis; - PSHx: Pacemaker Insertion; Tonsillectomy; - Social history: Smoking status: No barriers to communication noted, The patient speaks fluent [place], Speaks appropriately for age. - Family history: Not pertinent. - : The pt / caregiver states he / she is not on anticoagulants. Home medication list is obtained from the facility MAR. - Exposure Risk Screening:: None identified. Screenin:23 Screening information is obtained from the patient. Fall risk: At risk due to age, ttb injury, prior history of falls, The following interventions are performed due to a positive Fall Risk Screen: Fall Risk is added to Special Handling on the patient Summary Screen. A Fall Risk Bracelet was applied to the patient. Side Rails are placed in the up position. A Call [place] is given with instruction to call for help when getting out of bed. Assistance ADL's: Requires assistance with meal preparation, this assistance is provided by bathing, assistance is provided by dressing, assistance is provided by toileting, assistance is provided by ambulation, assistance is provided by housework, assistance is provided by medication administration, assistance is provided by residence staff. Abuse/DV Screen: The patient / caregiver reports he/she is: not in a situation that causes fear, pain or injury. Nutritional screening: No deficits noted. home support is adequate. Assessment: 17:59 General: Appears in no apparent distress, comfortable, Behavior is appropriate for age, hs1 cooperative. Pain: Denies pain. Respiratory: Airway is patent Respiratory effort is even, unlabored, Respiratory pattern is regular, symmetrical. Derm: Skin is pink, warm & dry. normal. Injury Description: Abrasion sustained to scalp. 18:27 Reassessment: Patient appears in no apparent distress at this time. Patient states ttb feeling better. Patient states symptoms have improved. pt resting on stretcher. NAD noted. Son states he is ready to bring pt home.. Pain: Denies pain. Neurological: Level of Consciousness is awake, alert. Cardiovascular: Chest pain is denied. Respiratory: Airway is patent Denies cough, shortness of breath. GI: Denies nausea, vomiting. Derm: Skin is normal, abrasion noted to back of head, cleaned and dressed per orders. 18:47 General: pt able to ambulate with walker with a 1 assist and walker. Unsteady. Pt son ttb states this is pt baseline. Pt has no complaints. States ready for discharge. Pt brought to [facility] per request to be transported back to [place]. Report given to KENYON Yarbrough. Neurological: Level of Consciousness is awake, alert. Respiratory: Airway is patent Respiratory effort is even, unlabored. Vital Signs: 16:49 BP 161 / 72 (auto/); hs1 16:52 Pulse 78 MON; Resp 18; Pulse Ox 100% ; Weight 83.91 kg; Height 67 in. (170.18 cm); hs1 17:27 Temp 95.8(O); rn1 18:23 Pulse 90 MON; Resp 18; Pulse Ox 99% on R/A; Pain 0/10; ttb 18:24 BP 141 / 63 (auto/); ttb 16:52 Body Mass Index 28.97 (83.91 kg, 170.18 cm) hs1 Vitals: 17:00 Log In Time N/A - ambulance arrival. hs1 ED Course: 16:40 Patient visited by Yi Bang, Industrial Security Analyst. deg 16:40 Patient moved to Waiting deg 16:41 Rajiv Farmer DO is [facility]. 1 16:41 Ever Ariza MD is Attending Physician. gk1 16:41 Patient moved to 15 deg 16:46 Triage Initiated hs1 17:36 Patient visited by Ever Ariza MD. br1 17:38 Complete Comphrensive Metabolic Sent. ttb 17:38 CBC with Diff Sent. ttb 17:38 Inserted peripheral IV: 20gauge IV in left antecubital area and blood collected. ttb Patient tolerated the procedure well. Labs drawn. (by ED staff). 17:49 DIFFERENTIAL NO CHARGE Sent. rn1 17:55 [facility] Payment Agreement was scanned into [employer] and attached to record. ks16 18:01 EKG done. (by ED staff). Reviewed by Ever Ariza MD. rn1 18:23 The patient / caregiver is instructed regarding the plan of care and ED course. ttb Accompanied by Family Member, Patient has correct armband on for positive identification. Placed in gown. Bed in low position. Call light in reach. Side rails up X2. Adult w/ patient. 18:23 No procedures done that require assistance. ttb 18:31 Patient visited by Juany Knight RN. ttb 18:31 Discontinued IV lock intact, bleeding controlled, pressure dressing applied, No ttb redness/swelling at site. 18:38 EKG-ADULT Returned. EDMS 18:41 CT Head Without Contrast Returned. EDMS 18:41 CT Spine,Cervical W/o Contrast Returned. EDMS 18:41 CT Chest Without Contrast Returned. EDMS Order Results: Lab Order: CBC with Diff; SPEC'M 11/10/16 17:36 Test: WHITE BLOOD COUNT; Value: 5.9; Range: 4.0-10.0; Units: K/mm3; Status: F Test: RED BLOOD COUNT; Value: 4.13; Range: 4.30-6.10; Abnormal: Below low normal; Units: M/mm3; Status: F Test: HEMOGLOBIN; Value: 11.8; Range: 14.0-18.0; Abnormal: Below low normal; Units: g/dl; Status: F Test: HEMATOCRIT; Value: 35.4; Range: 42.0-52.0; Abnormal: Below low normal; Units: %; Status: F Test: MEAN CORPUSCULAR VOLUME; Value: 85.8; Range: 80.0-96.0; Units: fl; Status: F Test: MEAN CORPUSCULAR HEMOGLOBIN; Value: 28.7; Range: 27.0-33.0; Units: pg; Status: F Test: MEAN CORPUSCULAR HGB CONC; Value: 33.4; Range: 32.0-36.5; Units: g/dl; Status: F Test: RED CELL DISTRIBUTION WIDTH; Value: 16.1; Range: 11.5-14.5; Abnormal: Above high normal; Units: %; Status: F Test: PLATELET COUNT, AUTOMATED; Value: 158; Range: 150-450; Units: k/mm3; Status: F Test: NEUTROPHILS; Value: 77; Range: 35-75; Abnormal: Above high normal; Units: %; Status: F Test: LYMPHOCYTES; Value: 18; Range: 16-52; Units: %; Status: F Test: MONOCYTES; Value: 3; Range: 0-8; Units: %; Status: F Test: BASOPHILS; Value: 1; Range: 0-4; Units: %; Status: F Test: ATYPICAL LYMPH; Value: 1; Range: 0-5; Units: %; Status: F Test: HYPOCHROMASIA; Value: 1+; Status: F Test: POIKILOCYTOSIS; Value: 1+; Status: F Test: ANISOCYTOSIS; Value: 1+; Status: F Test: OVALOCYTES; Value: 1+; Status: F Lab Order: Complete Comphrensive Metabolic; SPEC'M 11/10/16 17:36 Test: GLUCOSE, FASTING; Value: 169; Range: 83-110; Abnormal: Above high normal; Units: MG/DL; Status: F Test: BLOOD UREA NITROGEN; Value: 26; Range: 7-18; Abnormal: Above high normal; Units: MG/DL; Status: F Test: CREATININE FOR GFR; Value: 1.46; Range: 0.70-1.30; Abnormal: Above high normal; Units: MG/DL; Status: F Test: GLOMERULAR FILTRATION RATE; Value: 49.1; Range: >35; Status: F Test: SODIUM LEVEL; Value: 136; Range: 136-145; Units: MEQ/L; Status: F Test: POTASSIUM SERUM; Value: 4.1; Range: 3.5-5.1; Units: MEQ/L; Status: F Test: CHLORIDE LEVEL; Value: 100; Range: 98-107; Units: MEQ/L; Status: F Test: CARBON DIOXIDE LEVEL; Value: 28; Range: 21-32; Units: MEQ/L; Status: F Test: ANION GAP; Value: 8; Range: 8-16; Units: MEQ/L; Status: F Test: CALCIUM LEVEL; Value: 8.4; Range: 8.8-10.2; Abnormal: Below low normal; Units: MG/DL; Status: F Test: AST/SGOT; Value: 13; Range: 15-37; Abnormal: Below low normal; Units: U/L; Status: F Test: ALT/SGPT; Value: 10; Range: 12-78; Abnormal: Below low normal; Units: U/L; Status: F Test: ALKALINE PHOSPHATASE; Value: 94; Range: 45-117; Units: U/L; Status: F Test: BILIRUBIN,TOTAL; Value: 0.6; Range: 0.2-1.0; Units: MG/DL; Status: F Test: TOTAL PROTEIN; Value: 7.1; Range: 6.4-8.2; Units: GM/DL; Status: F Test: ALBUMIN; Value: 3.6; Range: 3.2-5.2; Units: GM/DL; Status: F Test: ALBUMIN/GLOBULIN RATIO; Value: 1.03; Range: 1.00-1.93; Status: F Test Note: ; Units are mL/min/1.73 m2 Chronic Kidney Disease Staging per NKF: Stage I & II GFR >=60 Normal to Mildly Decreased Stage III GFR 30-59 Moderately Decreased Stage IV GFR 15-29 Severely Decreased Stage V GFR <15 Very Little GFR Left ESRD GFR <15 on SAND WHEELER Lab Order: PLATELET ESTIMATE; SPEC'M 11/10/16 17:36 Test: PLATELET ESTIMATE; Value: DECREASED; Range: NORMAL; Status: F Radiology Order: EKG-ADULT Test: EKG-ADULT REASON FOR EXAMINATION: fall; Stationary ECG Study; [facility] - ED; ; Test Date: 2016-11-10; Pat Name: DARNELL LEDESMA Department:; Room: -; Gender: M Commissioned Fire Officer: RN; : 1935 Requested By: RAJIV SARMIENTO; Order Number: [id number] Reading MD: Matheus Houston; Measurements; Intervals [place]; Rate: 79 P:; ND: 0 QRS: -11; QRSD: 96 T: 105; QT: 358; QTc: 410; Interpretive Statements; REGULAR SUPRAVENTRICULAR RHYTHM, LIKELY SINUS; SEPTAL MYOCARDIAL INFARCTION, OF INDETERMINATE AGE; MODERATE T-WAVE ABNORMALITY, CONSIDER LATERAL ISCHEMIA; BASELINE ARTIFACT AFFECTS INTERPRETATION; ; Electronically Signed On 11-10-2016 18:16:27 EST by Matheus Houston; Radiology Order: CT Head Without Contrast Test: CT Head Without Contrast REASON FOR EXAMINATION: Fall, Hit Head; Clinical: Trauma.; ; Comparison: 09/20/2016 .; ; Findings:; Age-related atrophy and microvascular ischemic changes are appreciated including; old basal ganglia lacunar infarcts (left greater than right). The ventricles and; sulci are symmetric. Mejia-white differentiation is maintained. There is no; evidence for acute intracranial hemorrhage, mass/mass effect, pathology or; infarction. No extra-axial fluid collection. Calvarium is intact. Paranasal; sinuses and mastoid air cells are clear.; ; Impression:; Age related atrophy and microvascular ischemic changes.; No acute intracranial hemorrhage, infarction, or mass/mass effect.; ; ; Signed by; Werner Jack MD 11/10/2016 06:01 P; Radiology Order: CT Spine,Cervical W/o Contrast Test: CT Spine,Cervical W/o Contrast REASON FOR EXAMINATION: Trauma; Clinical: Trauma.; ; Technique: Axial noncontrast images from the skull base to the thoracic inlet; with coronal and sagittal re-formations.; ; Findings:; There is no evidence for acute fracture / compression injury or subluxation.; Advanced multilevel degenerative disc osteophyte complexes noted marginal and; posterior osteophytosis, endplate sclerosis/irregularities and disc space; narrowing as well as hypertrophic facet changes. Significant areas of canal; stenosis to approximately 5-6 mm AP diameter most notably at the C3-4, C5-6, and; C6-7 levels along with hypertrophic facet changes causing bilateral narrowing to; the neural foramina. Paravertebral soft tissues without evidence for; trauma/injury.; ; Impression:; Advanced multilevel degenerative changes as detailed above.; No evidence for acute fracture / compression injury or acute subluxation.; ; ; Signed by; Werner Jack MD 11/10/2016 06:06 P; Radiology Order: CT Chest Without Contrast Test: CT Chest Without Contrast REASON FOR EXAMINATION: Trauma; Clinical: Trauma.; ; Findings:; The bilateral lung ortega demonstrate perihilar and lower lobe bronchiectasis; with basilar fibrosis and interstitial changes. No focal; consolidation/contusion, pleural effusion or pneumothorax. Tracheobronchial tree; is patent. No evidence for mediastinal injury. Atherosclerotic changes to the; coronary arteries and thoracic aorta without evidence for aneurysm. Heart is; normal in size without pericardial effusion. Pacemaker identified. No axillary,; hilar, or mediastinal adenopathy appreciated. Osseous structures demonstrate; degenerative changes without evidence for trauma/injury. Limited evaluation of; the upper abdomen demonstrates normal bilateral adrenal glands.; ; Impression:; 1. Chronic bibasilar changes.; 2. No acute mediastinal or pleuroparenchymal trauma/injury or process.; 3. Atherosclerotic changes to the thoracic aorta and coronary arteries.; 4. Degenerative changes of the musculoskeletal structures without evidence for; trauma/injury; ; ; Signed by; eWrner Jack MD 11/10/2016 06:11 P; Outcome: 18:23 Discharge Assessment: Patient awake, alert and oriented x 3. No cognitive and/or ttb functional deficits noted. Patient verbalized understanding of disposition instructions. Patient awake and alert. patient administered narcotics - no. The following High Risk Discharge criteria are identified: None. Discharged to home ambulatory, via wheelchair, with family. Condition: good Condition: stable Condition: improved. Discharge instructions given to patient, family, Instructed on discharge instructions, follow up and referral plans. medication usage, wound care, safety practices, Demonstrated understanding of instructions, medications, Pt was receptive of discharge instructions/ teaching. CT Study completed. Property :Personal belongings accompany Pt. 18:34 Discharge ordered by Provider. gk1 18:47 Admission hand-off: Report called to KENYON Yarbrough at [place]. ttb 18:51 Patient left the ED. ttb Signatures: Dispatcher [employer] EDYi Fairbanks, Industrial Security Analyst Unit deg Ever Ariza MD MD br1 Fay Connors RN RN hs1 Juany Knight RN RN ttb Santos Delarosa rn1 Marielena Hardin, Reg Reg ks16 Rajiv Farmer, DO DO 1 MTDD
--- NOTE | 2016-11-10 18:51 | EDDOCDS ---
Physician Documentation [facility] Name: Curt Ledesma Age: 81 yrs Sex: Male : 1935 Arrival Date: 11/10/2016 Time: 16:39 Bed 15 Private MD: Disposition: 11/10/16 18:34 Discharged to Home/Self Care. Impression: Abrasion of scalp. - Condition is Stable. - Discharge Instructions: Abrasion, Abrasion, [id number]. - Medication Reconciliation, Local Pharmacy Hours form. - Follow up: Private Physician; When: Call to arrange an appointment; Reason: Recheck today's complaints, Continuance of care. - Problem is new. - Symptoms have improved. - Notes: Diagnosis: Scalp Abrasion. Please call Primary Care and make an appointment to follow up next week. Nursing Instructions: Please apply clean dry dressings daily to abrasion site on scalp. Historical: - Allergies: no known allergies; - Home Meds: 1. ropinirole 2 mg oral Tb24 2 tabs once daily 2. Vitamin D 1 weekly Oral 3. simvastatin 20 mg Oral tab 1 tab once daily 4. primidone 50 mg Oral tab 1 tabs bid 5. Zebeta 5 mg oral tab 0.5 tab bid 6. Aspirin Low Dose 81 mg oral TbEC 1 tab once daily 7. melatonin 5 mg Oral tab 8. Colace 100 mg oral cap 1 cap 2 times per day 9. bisacodyl 10 mg Rectal supp 1 suppository as needed 10. lisinopril 2.5 mg Oral tab 1 tab once daily 11. Tylenol 325 mg oral tab 2 tabs every 4-6 hours 12. glipizide 5 mg Oral tab 0.5 tab AC 13. nitroglycerin 0.4 mg SL subl 1 tab every 5 minutes 14. Lasix 40 mg Oral tab 1 tab 2 times per day 15. carbidopa-levodopa 25-100 mg Oral tab 2 tabs 4 times per day - PMHx: defibrillator; Diabetes - NIDDM: uncontrolled; Hypercholesterolemia; Hypertension; Myocardial infarction; Osteoarthritis; - PSHx: Pacemaker Insertion; Tonsillectomy; - Social history: Smoking status: No barriers to communication noted, The patient speaks fluent Estonian, Speaks appropriately for age. - Family history: Not pertinent. - : The pt / caregiver states he / she is not on anticoagulants. Home medication list is obtained from the facility NOV. - Exposure Risk Screening:: None identified. Vital Signs: 11/10 16:49 BP 161 / 72 (auto/); hs1 16:52 Pulse 78 MON; Resp 18; Pulse Ox 100% ; Weight 83.91 kg / 184.99 lbs; Height 67 in. hs1 (170.18 cm); 17:27 Temp 95.8(O); rn1 18:23 Pulse 90 MON; Resp 18; Pulse Ox 99% on R/A; Pain 0/10; ttb 18:24 BP 141 / 63 (auto/); ttb 16:52 Body Mass Index 28.97 (83.91 kg, 170.18 cm) hs1 MDM: 17:22 IV Saline Lock ordered. gk1 17:23 ECG WITH READING ER PHYS+CARDIAG ordered. EDMS 17:23 CT Head Without Contrast Ordered. EDMS 17:23 CBC with Diff Ordered. EDMS 17:23 Complete Comphrensive Metabolic Ordered. EDMS 17:36 CT Spine,Cervical W/o Contrast Ordered. EDMS 17:36 CT Chest Without Contrast Ordered. EDMS 17:48 DIFFERENTIAL NO CHARGE Ordered. EDMS 17:53 Financial registration complete. ks16 17:55 [facility] Payment Agreement was scanned into [employer] and attached to record. ks16 17:56 CBC with Diff Reviewed. gk1 18:15 CBC with Diff Reviewed. gk1 18:15 Complete Comphrensive Metabolic Reviewed. gk1 18:15 PLATELET ESTIMATE Reviewed. gk1 18:19 Misc. Nursing Order ordered. br1 18:23 ED course: Seen with resident. 81 yo Male, fell when one of his legs slipped (insists br1 mechanical fall). Positive hit head, no LOC, abrasion to scalp, states tetanus < 5 yrs and is up to date. Mild posterior rib pain upper thorax bilaterally. No vertebral tenderness, stepoff or deformity. Neurologically intact. No chest pain or shortness of breath. No abdominal pain. No arm or leg pain. Bloodwork unrevealing. CT scan of head, neck and chest unrevealing. Abrasion dressed. Patient ambulating and bearing weight without complaint. Plan DC home to retirement, follow up with PCP. Patient and his son agree with plan.. 18:33 Ambulate Patient to Assess Patient Safety ordered. br1 Signatures: Dispatcher [employer] EDMS Ever Ariza MD MD br1 Fay Connors RN RN hs1 Juany Knight RN RN ttb Marielena aHrdin, Reg Reg ks16 Marleny, Rajiv, DO DO gk1 The chart was reviewed and I authenticate all verbal orders and agree with the evaluation and treatment provided.Corrections: (The following items were deleted from the chart) 17:37 17:23 CARDIAC INJURY PROFILE+LAB ordered. EDMS EDMS 17:37 17:23 TROPONIN+LAB ordered. EDMS EDMS 17:39 17:24 SPINE, CERV-3 NO COLLAR+XR ordered. EDMS EDMS 17:39 17:24 Spine, Thoracic 3 VIEWS+XR ordered. EDMS EDMS 17:39 17:24 Shoulder, complete+XR ordered. EDMS EDMS Attachments: 17:55 [facility] Payment Agreement ks16 MTDD
--- NOTE | 2016-11-12 19:52 | EDDOCDS ---
Physician Documentation [facility] Name: Curt Ledesma Age: 81 yrs Sex: Male : 1935 Arrival Date: 11/10/2016 Time: 16:39 Bed 15 Private MD: Disposition: 11/10/16 18:34 Discharged to Home/Self Care. Impression: Abrasion of scalp. - Condition is Stable. - Discharge Instructions: Abrasion, Abrasion, [id number]. - Medication Reconciliation, Local Pharmacy Hours form. - Follow up: Private Physician; When: Call to arrange an appointment; Reason: Recheck today's complaints, Continuance of care. - Problem is new. - Symptoms have improved. - Notes: Diagnosis: Scalp Abrasion. Please call Primary Care and make an appointment to follow up next week. Nursing Instructions: Please apply clean dry dressings daily to abrasion site on scalp. Historical: - Allergies: no known allergies; - Home Meds: 1. ropinirole 2 mg oral Tb24 2 tabs once daily 2. Vitamin D 1 weekly Oral 3. simvastatin 20 mg Oral tab 1 tab once daily 4. primidone 50 mg Oral tab 1 tabs bid 5. Zebeta 5 mg oral tab 0.5 tab bid 6. Aspirin Low Dose 81 mg oral TbEC 1 tab once daily 7. melatonin 5 mg Oral tab 8. Colace 100 mg oral cap 1 cap 2 times per day 9. bisacodyl 10 mg Rectal supp 1 suppository as needed 10. lisinopril 2.5 mg Oral tab 1 tab once daily 11. Tylenol 325 mg oral tab 2 tabs every 4-6 hours 12. glipizide 5 mg Oral tab 0.5 tab AC 13. nitroglycerin 0.4 mg SL subl 1 tab every 5 minutes 14. Lasix 40 mg Oral tab 1 tab 2 times per day 15. carbidopa-levodopa 25-100 mg Oral tab 2 tabs 4 times per day - PMHx: defibrillator; Diabetes - NIDDM: uncontrolled; Hypercholesterolemia; Hypertension; Myocardial infarction; Osteoarthritis; - PSHx: Pacemaker Insertion; Tonsillectomy; - Social history: Smoking status: No barriers to communication noted, The patient speaks fluent Japanese, Speaks appropriately for age. - Family history: Not pertinent. - : The pt / caregiver states he / she is not on anticoagulants. Home medication list is obtained from the facility NOV. - Exposure Risk Screening:: None identified. Vital Signs: 11/10 16:49 BP 161 / 72 (auto/); hs1 16:52 Pulse 78 MON; Resp 18; Pulse Ox 100% ; Weight 83.91 kg / 184.99 lbs; Height 67 in. hs1 (170.18 cm); 17:27 Temp 95.8(O); rn1 18:23 Pulse 90 MON; Resp 18; Pulse Ox 99% on R/A; Pain 0/10; ttb 18:24 BP 141 / 63 (auto/); ttb 16:52 Body Mass Index 28.97 (83.91 kg, 170.18 cm) hs1 MDM: 17:22 IV Saline Lock ordered. gk1 17:23 ECG WITH READING ER PHYS+CARDIAG ordered. EDMS 17:23 CT Head Without Contrast Ordered. EDMS 17:23 CBC with Diff Ordered. EDMS 17:23 Complete Comphrensive Metabolic Ordered. EDMS 17:36 CT Spine,Cervical W/o Contrast Ordered. EDMS 17:36 CT Chest Without Contrast Ordered. EDMS 17:48 DIFFERENTIAL NO CHARGE Ordered. EDMS 17:53 Financial registration complete. ks16 17:55 [facility] [place] Agreement was scanned into [employer] and attached to record. ks16 17:56 CBC with Diff Reviewed. gk1 18:15 CBC with Diff Reviewed. gk1 18:15 Complete Comphrensive Metabolic Reviewed. gk1 18:15 PLATELET ESTIMATE Reviewed. gk1 18:19 Misc. Nursing Order ordered. br1 18:23 ED course: Seen with resident. 81 yo Male, fell when one of his legs slipped (insists br1 mechanical fall). Positive hit head, no LOC, abrasion to scalp, states tetanus < 5 yrs and is up to date. Mild posterior rib pain upper thorax bilaterally. No vertebral tenderness, stepoff or deformity. Neurologically intact. No chest pain or shortness of breath. No abdominal pain. No arm or leg pain. Bloodwork unrevealing. CT scan of head, neck and chest unrevealing. Abrasion dressed. Patient ambulating and bearing weight without complaint. Plan DC home to [facility], follow up with PCP. Patient and his son agree with plan.. 18:33 Ambulate Patient to Assess Patient Safety ordered. br1 11/11 08:23 T-Sheet-- Draft Copy was scanned into [employer] and attached to record. [facility] 11/12 16:13 ECG/EKG was scanned into [employer] and attached to record. kf3 Signatures: Dispatcher [employer] EDMS MoiramihaelaSridhar, Reg Reg kf3 Ever Ariza MD MD br1 Fay Connors RN RN hs1 Juany Knight RN RN ttb Marielena Hardin, Reg Reg ks16 Leyla, Adenike Farmer, Rajiv, DO DO gk1 The chart was reviewed and I authenticate all verbal orders and agree with the evaluation and treatment provided.Corrections: (The following items were deleted from the chart) 11/10 17:37 17:23 CARDIAC INJURY PROFILE+LAB ordered. EDMS EDMS 17:37 17:23 TROPONIN+LAB ordered. EDMS EDMS 17:39 17:24 SPINE, CERV-3 NO COLLAR+XR ordered. EDMS EDMS 17:39 17:24 Spine, Thoracic 3 VIEWS+XR ordered. EDMS EDMS 17:39 17:24 Shoulder, complete+XR ordered. EDMS EDMS Attachments: 17:55 [facility] [place] Agreement [email or web address] 11/11 08:23 T-Sheet-- Draft Copy [facility] 11/12 16:13 ECG/EKG kf3 Chart Complete MTDD
--- NOTE | 2016-11-12 19:52 | EDDOCDS ---
Nurse's Notes [facility] Name: Darnell Ledesma Age: 81 yrs Sex: Male : 1935 Arrival Date: 11/10/2016 Time: 16:39 Bed 15 Private MD: Diagnosis: Abrasion of scalp Presentation: 11/10 16:42 Presenting complaint: EMS states: Patient is resident of [address] While trying to go to the bathroom. Patient was not willing to wait and fell on his way to get to the bathroom. Patient has laceration to back of head. Adult Sepsis Screening: The patient does not have new or worsening altered mentation. Patient's respiratory rate is less than 22. Systolic blood pressure is greater than 100. Patient has a qSOFA score of 0- Negative Sepsis Screen. Suicide/Homicide risk assessment- the patient denies having any suicidal and/or homicidal ideations and does not present with any other emotional, behavioral or mental health complaints. Status: Patient is not a conference service coordinator or dependent. Transition of care: patient was not received from another setting of care. 16:42 Acuity: KEN Level 3 hs1 16:42 Method Of Arrival: Ambulance hs1 Triage Assessment: 17:01 General: Appears in no apparent distress, Behavior is appropriate for age, cooperative. hs1 Pain: Location: scalp Pain currently is 3 out of 10 on a pain scale. Neurological: Level of Consciousness is awake, alert, obeys commands. Cardiovascular: Rhythm is regular. Respiratory: Airway is patent Respiratory effort is even, unlabored, Respiratory pattern is regular, symmetrical. Musculoskeletal: No deficits noted. cervical spine is non-tender. Injury Description: Abrasion sustained to scalp. Historical: - Allergies: no known allergies; - Home Meds: 1. ropinirole 2 mg oral Tb24 2 tabs once daily 2. Vitamin D 1 weekly Oral 3. simvastatin 20 mg Oral tab 1 tab once daily 4. primidone 50 mg Oral tab 1 tabs bid 5. Zebeta 5 mg oral tab 0.5 tab bid 6. Aspirin Low Dose 81 mg oral TbEC 1 tab once daily 7. melatonin 5 mg Oral tab 8. Colace 100 mg oral cap 1 cap 2 times per day 9. bisacodyl 10 mg Rectal supp 1 suppository as needed 10. lisinopril 2.5 mg Oral tab 1 tab once daily 11. Tylenol 325 mg oral tab 2 tabs every 4-6 hours 12. glipizide 5 mg Oral tab 0.5 tab AC 13. nitroglycerin 0.4 mg SL subl 1 tab every 5 minutes 14. Lasix 40 mg Oral tab 1 tab 2 times per day 15. carbidopa-levodopa 25-100 mg Oral tab 2 tabs 4 times per day - PMHx: defibrillator; Diabetes - NIDDM: uncontrolled; Hypercholesterolemia; Hypertension; Myocardial infarction; Osteoarthritis; - PSHx: Pacemaker Insertion; Tonsillectomy; - Social history: Smoking status: No barriers to communication noted, The patient speaks fluent Lao, Speaks appropriately for age. - Family history: Not pertinent. - : The pt / caregiver states he / she is not on anticoagulants. Home medication list is obtained from the facility MAR. - Exposure Risk Screening:: None identified. Screenin:23 Screening information is obtained from the patient. Fall risk: At risk due to age, ttb injury, prior history of falls, The following interventions are performed due to a positive Fall Risk Screen: Fall Risk is added to Special Handling on the patient Summary Screen. A Fall Risk Bracelet was applied to the patient. Side Rails are placed in the up position. A Call [place] is given with instruction to call for help when getting out of bed. Assistance ADL's: Requires assistance with meal preparation, this assistance is provided by bathing, assistance is provided by dressing, assistance is provided by toileting, assistance is provided by ambulation, assistance is provided by housework, assistance is provided by medication administration, assistance is provided by residence staff. Abuse/DV Screen: The patient / caregiver reports he/she is: not in a situation that causes fear, pain or injury. Nutritional screening: No deficits noted. home support is adequate. Assessment: 17:59 General: Appears in no apparent distress, comfortable, Behavior is appropriate for age, hs1 cooperative. Pain: Denies pain. Respiratory: Airway is patent Respiratory effort is even, unlabored, Respiratory pattern is regular, symmetrical. Derm: Skin is pink, warm & dry. normal. Injury Description: Abrasion sustained to scalp. 18:27 Reassessment: Patient appears in no apparent distress at this time. Patient states ttb feeling better. Patient states symptoms have improved. pt resting on stretcher. NAD noted. Son states he is ready to bring pt home.. Pain: Denies pain. Neurological: Level of Consciousness is awake, alert. Cardiovascular: Chest pain is denied. Respiratory: Airway is patent Denies cough, shortness of breath. GI: Denies nausea, vomiting. Derm: Skin is normal, abrasion noted to back of head, cleaned and dressed per orders. 18:47 General: pt able to ambulate with walker with a 1 assist and walker. Unsteady. Pt son ttb states this is pt baseline. Pt has no complaints. States ready for discharge. Pt brought to [facility] per request to be transported back to [facility]. Report given to KENYON Yarbrough. Neurological: Level of Consciousness is awake, alert. Respiratory: Airway is patent Respiratory effort is even, unlabored. Vital Signs: 16:49 BP 161 / 72 (auto/); hs1 16:52 Pulse 78 MON; Resp 18; Pulse Ox 100% ; Weight 83.91 kg; Height 67 in. (170.18 cm); hs1 17:27 Temp 95.8(O); rn1 18:23 Pulse 90 MON; Resp 18; Pulse Ox 99% on R/A; Pain 0/10; ttb 18:24 BP 141 / 63 (auto/); ttb 16:52 Body Mass Index 28.97 (83.91 kg, 170.18 cm) hs1 Vitals: 17:00 Log In Time N/A - ambulance arrival. hs1 ED Course: 16:40 Patient visited by Yi Bang, Commutator Repairer. deg 16:40 Patient moved to Waiting deg 16:41 Rajiv Farmer DO is [facility]. 1 16:41 Ever Ariza MD is Attending Physician. gk1 16:41 Patient moved to 15 deg 16:46 Triage Initiated hs1 17:36 Patient visited by Ever Ariza MD. br1 17:38 Complete Comphrensive Metabolic Sent. ttb 17:38 CBC with Diff Sent. ttb 17:38 Inserted peripheral IV: 20gauge IV in left antecubital area and blood collected. ttb Patient tolerated the procedure well. Labs drawn. (by ED staff). 17:49 DIFFERENTIAL NO CHARGE Sent. rn1 17:55 [facility] [place] was scanned into [employer] and attached to record. ks16 18:01 EKG done. (by ED staff). Reviewed by Ever Ariza MD. rn1 18:23 The patient / caregiver is instructed regarding the plan of care and ED course. ttb Accompanied by Family Member, Patient has correct armband on for positive identification. Placed in gown. Bed in low position. Call light in reach. Side rails up X2. Adult w/ patient. 18:23 No procedures done that require assistance. ttb 18:31 Patient visited by Juany Knight RN. ttb 18:31 Discontinued IV lock intact, bleeding controlled, pressure dressing applied, No ttb redness/swelling at site. 18:38 EKG-ADULT Returned. EDMS 18:41 CT Head Without Contrast Returned. EDMS 18:41 CT Spine,Cervical W/o Contrast Returned. EDMS 18:41 CT Chest Without Contrast Returned. EDTX 02 08:23 T-Sheet-- Draft Copy was scanned into [employer] and attached to record. [facility] 02 16:13 ECG/EKG was scanned into [employer] and attached to record. kf3 Order Results: Lab Order: CBC with Diff; SPEC'M 11/10/16 17:36 Test: WHITE BLOOD COUNT; Value: 5.9; Range: 4.0-10.0; Units: K/mm3; Status: F Test: RED BLOOD COUNT; Value: 4.13; Range: 4.30-6.10; Abnormal: Below low normal; Units: M/mm3; Status: F Test: HEMOGLOBIN; Value: 11.8; Range: 14.0-18.0; Abnormal: Below low normal; Units: g/dl; Status: F Test: HEMATOCRIT; Value: 35.4; Range: 42.0-52.0; Abnormal: Below low normal; Units: %; Status: F Test: MEAN CORPUSCULAR VOLUME; Value: 85.8; Range: 80.0-96.0; Units: fl; Status: F Test: MEAN CORPUSCULAR HEMOGLOBIN; Value: 28.7; Range: 27.0-33.0; Units: pg; Status: F Test: MEAN CORPUSCULAR HGB CONC; Value: 33.4; Range: 32.0-36.5; Units: g/dl; Status: F Test: RED CELL DISTRIBUTION WIDTH; Value: 16.1; Range: 11.5-14.5; Abnormal: Above high normal; Units: %; Status: F Test: PLATELET COUNT, AUTOMATED; Value: 158; Range: 150-450; Units: k/mm3; Status: F Test: NEUTROPHILS; Value: 77; Range: 35-75; Abnormal: Above high normal; Units: %; Status: F Test: LYMPHOCYTES; Value: 18; Range: 16-52; Units: %; Status: F Test: MONOCYTES; Value: 3; Range: 0-8; Units: %; Status: F Test: BASOPHILS; Value: 1; Range: 0-4; Units: %; Status: F Test: ATYPICAL LYMPH; Value: 1; Range: 0-5; Units: %; Status: F Test: HYPOCHROMASIA; Value: 1+; Status: F Test: POIKILOCYTOSIS; Value: 1+; Status: F Test: ANISOCYTOSIS; Value: 1+; Status: F Test: OVALOCYTES; Value: 1+; Status: F Lab Order: Complete Comphrensive Metabolic; SPEC'M 11/10/16 17:36 Test: GLUCOSE, FASTING; Value: 169; Range: 83-110; Abnormal: Above high normal; Units: MG/DL; Status: F Test: BLOOD UREA NITROGEN; Value: 26; Range: 7-18; Abnormal: Above high normal; Units: MG/DL; Status: F Test: CREATININE FOR GFR; Value: 1.46; Range: 0.70-1.30; Abnormal: Above high normal; Units: MG/DL; Status: F Test: GLOMERULAR FILTRATION RATE; Value: 49.1; Range: >35; Status: F Test: SODIUM LEVEL; Value: 136; Range: 136-145; Units: MEQ/L; Status: F Test: POTASSIUM SERUM; Value: 4.1; Range: 3.5-5.1; Units: MEQ/L; Status: F Test: CHLORIDE LEVEL; Value: 100; Range: 98-107; Units: MEQ/L; Status: F Test: CARBON DIOXIDE LEVEL; Value: 28; Range: 21-32; Units: MEQ/L; Status: F Test: ANION GAP; Value: 8; Range: 8-16; Units: MEQ/L; Status: F Test: CALCIUM LEVEL; Value: 8.4; Range: 8.8-10.2; Abnormal: Below low normal; Units: MG/DL; Status: F Test: AST/SGOT; Value: 13; Range: 15-37; Abnormal: Below low normal; Units: U/L; Status: F Test: ALT/SGPT; Value: 10; Range: 12-78; Abnormal: Below low normal; Units: U/L; Status: F Test: ALKALINE PHOSPHATASE; Value: 94; Range: 45-117; Units: U/L; Status: F Test: BILIRUBIN,TOTAL; Value: 0.6; Range: 0.2-1.0; Units: MG/DL; Status: F Test: TOTAL PROTEIN; Value: 7.1; Range: 6.4-8.2; Units: GM/DL; Status: F Test: ALBUMIN; Value: 3.6; Range: 3.2-5.2; Units: GM/DL; Status: F Test: ALBUMIN/GLOBULIN RATIO; Value: 1.03; Range: 1.00-1.93; Status: F Test Note: ; Units are mL/min/1.73 m2 Chronic Kidney Disease Staging per NKF: Stage I & II GFR >=60 Normal to Mildly Decreased Stage III GFR 30-59 Moderately Decreased Stage IV GFR 15-29 Severely Decreased Stage V GFR <15 Very Little GFR Left ESRD GFR <15 on STRADDLE BUGGY OPERATOR Lab Order: PLATELET ESTIMATE; SPEC'M 11/10/16 17:36 Test: PLATELET ESTIMATE; Value: DECREASED; Range: NORMAL; Status: F Radiology Order: EKG-ADULT Test: EKG-ADULT REASON FOR EXAMINATION: fall; Stationary ECG Study; [facility] - ED; ; Test Date: 2016-11-10; Pat Name: DARNELL LEDESMA Department:; Room: -; Gender: M Ebd Teacher: RN; : 1935 Requested By: RAJIV SARMIENTO; Order Number: [id number] Reading MD: Matheus Houston; Measurements; Intervals [place]; Rate: 79 P:; AL: 0 QRS: -11; QRSD: 96 T: 105; QT: 358; QTc: 410; Interpretive Statements; REGULAR SUPRAVENTRICULAR RHYTHM, LIKELY SINUS; SEPTAL MYOCARDIAL INFARCTION, OF INDETERMINATE AGE; MODERATE T-WAVE ABNORMALITY, CONSIDER LATERAL ISCHEMIA; BASELINE ARTIFACT AFFECTS INTERPRETATION; ; Electronically Signed On 11-10-2016 18:16:27 EST by Matheus Houston; Radiology Order: CT Head Without Contrast Test: CT Head Without Contrast REASON FOR EXAMINATION: Fall, Hit Head; Clinical: Trauma.; ; Comparison: 09/20/2016 .; ; Findings:; Age-related atrophy and microvascular ischemic changes are appreciated including; old basal ganglia lacunar infarcts (left greater than right). The ventricles and; sulci are symmetric. Mejia-white differentiation is maintained. There is no; evidence for acute intracranial hemorrhage, mass/mass effect, pathology or; infarction. No extra-axial fluid collection. Calvarium is intact. Paranasal; sinuses and mastoid air cells are clear.; ; Impression:; Age related atrophy and microvascular ischemic changes.; No acute intracranial hemorrhage, infarction, or mass/mass effect.; ; ; Signed by; Werner Jack MD 11/10/2016 06:01 P; Radiology Order: CT Spine,Cervical W/o Contrast Test: CT Spine,Cervical W/o Contrast REASON FOR EXAMINATION: Trauma; Clinical: Trauma.; ; Technique: Axial noncontrast images from the skull base to the thoracic inlet; with coronal and sagittal re-formations.; ; Findings:; There is no evidence for acute fracture / compression injury or subluxation.; Advanced multilevel degenerative disc osteophyte complexes noted marginal and; posterior osteophytosis, endplate sclerosis/irregularities and disc space; narrowing as well as hypertrophic facet changes. Significant areas of canal; stenosis to approximately 5-6 mm AP diameter most notably at the C3-4, C5-6, and; C6-7 levels along with hypertrophic facet changes causing bilateral narrowing to; the neural foramina. Paravertebral soft tissues without evidence for; trauma/injury.; ; Impression:; Advanced multilevel degenerative changes as detailed above.; No evidence for acute fracture / compression injury or acute subluxation.; ; ; Signed by; Werner Jack MD 11/10/2016 06:06 P; Radiology Order: CT Chest Without Contrast Test: CT Chest Without Contrast REASON FOR EXAMINATION: Trauma; Clinical: Trauma.; ; Findings:; The bilateral lung ortega demonstrate perihilar and lower lobe bronchiectasis; with basilar fibrosis and interstitial changes. No focal; consolidation/contusion, pleural effusion or pneumothorax. Tracheobronchial tree; is patent. No evidence for mediastinal injury. Atherosclerotic changes to the; coronary arteries and thoracic aorta without evidence for aneurysm. Heart is; normal in size without pericardial effusion. Pacemaker identified. No axillary,; hilar, or mediastinal adenopathy appreciated. Osseous structures demonstrate; degenerative changes without evidence for trauma/injury. Limited evaluation of; the upper abdomen demonstrates normal bilateral adrenal glands.; ; Impression:; 1. Chronic bibasilar changes.; 2. No acute mediastinal or pleuroparenchymal trauma/injury or process.; 3. Atherosclerotic changes to the thoracic aorta and coronary arteries.; 4. Degenerative changes of the musculoskeletal structures without evidence for; trauma/injury; ; ; Signed by; Werner Jack MD 11/10/2016 06:11 P; Outcome: 11/10 18:23 Discharge Assessment: Patient awake, alert and oriented x 3. No cognitive and/or ttb functional deficits noted. Patient verbalized understanding of disposition instructions. Patient awake and alert. patient administered narcotics - no. The following High Risk Discharge criteria are identified: None. Discharged to home ambulatory, via wheelchair, with family. Condition: good Condition: stable Condition: improved. Discharge instructions given to patient, family, Instructed on discharge instructions, follow up and referral plans. medication usage, wound care, safety practices, Demonstrated understanding of instructions, medications, Pt was receptive of discharge instructions/ teaching. CT Study completed. Property :Personal belongings accompany Pt. 18:34 Discharge ordered by Provider. gk1 18:47 Admission hand-off: Report called to KENYON Yarbrough at [facility]. ttb 18:51 Patient left the ED. ttb Signatures: Dispatcher [employer] EDYi Fairbanks, Commutator Repairer Unit deg Sridhar Jacobs, Reg Reg kf3 Ever Ariza MD MD br1 Fay Connors RN RN hs1 Juany Knight RN RN hawab Santos Delarosa rn1 Marielena Hardin, Reg Reg ks16 Adenike Mayer Gurpreet, DO DO gk1 Chart Complete MTDD
--- NOTE | 2016-11-12 19:52 | EDDOCDS ---
Physician Documentation [facility] Name: Curt Ledesma Age: 81 yrs Sex: Male : 1935 Arrival Date: 11/10/2016 Time: 16:39 Bed 15 Private MD: Disposition: 11/10/16 18:34 Discharged to Home/Self Care. Impression: Abrasion of scalp. - Condition is Stable. - Discharge Instructions: Abrasion, Abrasion, [id number]. - Medication Reconciliation, Local Pharmacy Hours form. - Follow up: Private Physician; When: Call to arrange an appointment; Reason: Recheck today's complaints, Continuance of care. - Problem is new. - Symptoms have improved. - Notes: Diagnosis: Scalp Abrasion. Please call Primary Care and make an appointment to follow up next week. Nursing Instructions: Please apply clean dry dressings daily to abrasion site on scalp. Historical: - Allergies: no known allergies; - Home Meds: 1. ropinirole 2 mg oral Tb24 2 tabs once daily 2. Vitamin D 1 weekly Oral 3. simvastatin 20 mg Oral tab 1 tab once daily 4. primidone 50 mg Oral tab 1 tabs bid 5. Zebeta 5 mg oral tab 0.5 tab bid 6. Aspirin Low Dose 81 mg oral TbEC 1 tab once daily 7. melatonin 5 mg Oral tab 8. Colace 100 mg oral cap 1 cap 2 times per day 9. bisacodyl 10 mg Rectal supp 1 suppository as needed 10. lisinopril 2.5 mg Oral tab 1 tab once daily 11. Tylenol 325 mg oral tab 2 tabs every 4-6 hours 12. glipizide 5 mg Oral tab 0.5 tab AC 13. nitroglycerin 0.4 mg SL subl 1 tab every 5 minutes 14. Lasix 40 mg Oral tab 1 tab 2 times per day 15. carbidopa-levodopa 25-100 mg Oral tab 2 tabs 4 times per day - PMHx: defibrillator; Diabetes - NIDDM: uncontrolled; Hypercholesterolemia; Hypertension; Myocardial infarction; Osteoarthritis; - PSHx: Pacemaker Insertion; Tonsillectomy; - Social history: Smoking status: No barriers to communication noted, The patient speaks fluent Greenlandic, Speaks appropriately for age. - Family history: Not pertinent. - : The pt / caregiver states he / she is not on anticoagulants. Home medication list is obtained from the facility NOV. - Exposure Risk Screening:: None identified. Vital Signs: 11/10 16:49 BP 161 / 72 (auto/); hs1 16:52 Pulse 78 MON; Resp 18; Pulse Ox 100% ; Weight 83.91 kg / 184.99 lbs; Height 67 in. hs1 (170.18 cm); 17:27 Temp 95.8(O); rn1 18:23 Pulse 90 MON; Resp 18; Pulse Ox 99% on R/A; Pain 0/10; ttb 18:24 BP 141 / 63 (auto/); ttb 16:52 Body Mass Index 28.97 (83.91 kg, 170.18 cm) hs1 MDM: 17:22 IV Saline Lock ordered. gk1 17:23 ECG WITH READING ER PHYS+CARDIAG ordered. EDMS 17:23 CT Head Without Contrast Ordered. EDMS 17:23 CBC with Diff Ordered. EDMS 17:23 Complete Comphrensive Metabolic Ordered. EDMS 17:36 CT Spine,Cervical W/o Contrast Ordered. EDMS 17:36 CT Chest Without Contrast Ordered. EDMS 17:48 DIFFERENTIAL NO CHARGE Ordered. EDMS 17:53 Financial registration complete. [email or web address] 17:55 [facility] [place] was [place] into [employer] and attached to record. ks16 17:56 CBC with Diff Reviewed. gk1 18:15 CBC with Diff Reviewed. gk1 18:15 Complete Comphrensive Metabolic Reviewed. gk1 18:15 PLATELET ESTIMATE Reviewed. gk1 18:19 Misc. Nursing Order ordered. br1 18:23 ED course: Seen with resident. 81 yo Male, fell when one of his legs slipped (insists br1 mechanical fall). Positive hit head, no LOC, abrasion to scalp, states tetanus < 5 yrs and is up to date. Mild posterior rib pain upper thorax bilaterally. No vertebral tenderness, stepoff or deformity. Neurologically intact. No chest pain or shortness of breath. No abdominal pain. No arm or leg pain. Bloodwork unrevealing. CT scan of head, neck and chest unrevealing. Abrasion dressed. Patient ambulating and bearing weight without complaint. Plan DC home to senior living, follow up with PCP. Patient and his son agree with plan.. 18:33 Ambulate Patient to Assess Patient Safety ordered. br1 11/11 08:23 T-Sheet-- Draft Copy was scanned into MED[employer] and attached to record. [facility] 11/12 16:13 ECG/EKG was scanned into MED[employer] and attached to record. kf3 Signatures: Dispatcher [employer] EDMS MoiramihaelaSridhar, Reg Reg kf3 Ever Ariza MD MD br1 Fay Connors RN RN hs1 Juany Knight RN RN ttb Marielena Hardin, Reg Reg ks16 Leyla, Adenike Farmer, Rajiv, DO DO gk1 The chart was reviewed and I authenticate all verbal orders and agree with the evaluation and treatment provided.Corrections: (The following items were deleted from the chart) 11/10 17:37 17:23 CARDIAC INJURY PROFILE+LAB ordered. EDMS EDMS 17:37 17:23 TROPONIN+LAB ordered. EDMS EDMS 17:39 17:24 SPINE, CERV-3 NO COLLAR+XR ordered. EDMS EDMS 17:39 17:24 Spine, Thoracic 3 VIEWS+XR ordered. EDMS EDMS 17:39 17:24 Shoulder, complete+XR ordered. EDMS EDMS Attachments: 17:55 [facility] [place] [email or web address] 11/11 08:23 T-Sheet-- Draft Copy [facility] 11/12 16:13 ECG/EKG kf3 Chart Complete MTDD
== END 2016-11-10 18:51 | disposition home or self-care (01) ==
LOC: M ED 16:39
DX: S00.01XA Abrasion of scalp, initial encounter (principal); W01.10XA Fall on same level from slipping, tripping and stumbling with subsequent striking against unspecified object, initial encounter; Y92.129 Unspecified place in nursing home as the place of occurrence of the external cause; Y93.9 Activity, unspecified; Y99.9 Unspecified external cause status; E11.9 Type 2 diabetes mellitus without complications; E78.00 Pure hypercholesterolemia, unspecified; I10 Essential (primary) hypertension; I25.2 Old myocardial infarction; M19.90 Unspecified osteoarthritis, unspecified site; Z95.810 Presence of automatic (implantable) cardiac defibrillator; Z79.82 Long term (current) use of aspirin; Z79.84 Long term (current) use of oral hypoglycemic drugs; Z79.899 Other long term (current) drug therapy

== ENCOUNTER → 2016-11-12 | Outpatient (CLI) | payer MEDICARE ==
[~2016-11-12] MED LIST changes: +ACET-654 PO; +BISA10SU27 PR; +DOCU100C PO; +ENEMENE3 PR; +LISI2.5T3 PO; +MELA1LIQ2 PO; +MELA5TAB14 PO; +MILKSUS PO
--- NOTE | 2016-11-12 14:48 | REP ---
CT HEAD WITHOUT CONTRAST: HISTORY: Injury. COMPARISON: 11/10/2016 A small hemorrhagic contusion 8 mm in width is present in the inferior left frontal lobe. Areas of decreased attenuation are present in the basal ganglia and left internal capsule. These represent old lacunar infarctions. Areas of decreased attenuation are present in the periventricular and subcortical white matter. This represents small vessel ischemic disease. There is no intraparenchymal mass or midline shift. The ventricular system and cortical sulci as well as subarachnoid space in the posterior fossa are dilated consistent with mild volume loss. There is no extracerebral collection. There has been resolution of the small amount of subarachnoid hemorrhage previously seen overlying the left frontal lobe. There in is no fracture. The visualized sinuses are clear. IMPRESSION: 1. There is an 8 mm hemorrhagic contusion in the left frontal lobe unchanged compared to the previous study. 2. 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 3. Small vessel ischemic disease. 4. Mild volume loss. 5. There has been resolution of the previously noted small amount of subarachnoid hemorrhage. Results were discussed with Layla Hough at 2:10 pm this date. Signed by Curt Veloz MD 11/12/2016 02:58 P
== END ==
LOC: M RAD 13:29
PROVIDERS: ATTEND Physician Assistant
DX: S00.93XA Contusion of unspecified part of head, initial encounter (principal); X58.XXXA Exposure to other specified factors, initial encounter; Y92.89 Other specified places as the place of occurrence of the external cause; Y93.89 Activity, other specified; Y99.8 Other external cause status; I67.82 Cerebral ischemia

== ENCOUNTER 2016-11-13 13:36 | Inpatient (IN) | payer MEDICARE ==
[~2016-11-13] VITALS: Ht 170.2 cm; Wt 79.0 kg
[~2016-11-13 13:36] MED LIST changes: -ACET-654 PO; -BISA10SU27 PR; -DOCU100C PO; -ENEMENE3 PR; -LISI2.5T3 PO; -MELA1LIQ2 PO; -MELA5TAB14 PO; -MILKSUS PO
[2016-11-13] MEDS ORDERED: LISI2.5T3 PO (14:23)
[2016-11-13] MEDS ORDERED: MELA1LIQ2 PO (14:23)
[2016-11-13] MEDS ORDERED: NS 1,000 ML IV SCH (14:50)
--- NOTE | 2016-11-13 15:27 | REP ---
CT HEAD WITHOUT CONTRAST: HISTORY: Fall. COMPARISON: 11/12/2016 A small 7 mm hemorrhagic contusion is present in the left frontal lobe. A small amount of surrounding edema is present. This is unchanged compared to the previous study. Areas of decreased attenuation are present in the basal ganglia and left internal capsule. These represent old lacunar infarctions. Areas of decreased attenuation are present in the periventricular and subcortical white matter. This represents small vessel ischemic disease. There is no intraparenchymal mass or midline shift. The ventricular system and cortical sulci are dilated consistent with mild volume loss. There is no extracerebral collection. A very small amount of subarachnoid hemorrhage is present overlying the left frontal lobe unchanged compared to the previous study. There is no fracture. Mucosal thickening is present in the ethmoid sinuses. IMPRESSION: 1. Small 7 mm left frontal lobe hemorrhagic contusion, unchanged compared to the previous study. 2. 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 3. Small vessel ischemic disease. 4. Mild volume loss. 5. There is a very small amount of subarachnoid hemorrhage overlying the left frontal lobe, unchanged compared to the previous study. Signed by Curt Veloz MD 11/13/2016 03:49 P
--- NOTE | 2016-11-13 15:36 | REP ---
Portable chest x-ray: Sitting AP view. History: Altered mental status. Comparison chest x-ray is from September 20, 2016. Findings: A unipolar pacemaker is seen in the right heart via the left side as before. EKG monitoring electrodes overlie the chest. Heart is not felt to be enlarged overall. There is some linear fibrosis versus plate-like atelectasis in the right base. No infiltrate is seen. The aorta is calcific and tortuous. Pulmonary vasculature is not increased. Impression: Plate-like atelectasis versus linear fibrosis right base. Pacemaker. Otherwise no acute disease. Signed by Tyler Bar MD 11/13/2016 04:45 P
[2016-11-13 15:46] LABS: BASO % 0.2 % (0.0-1.0); EOS # 0.1 K/mm3 (0.0-0.50); EOS % 1.3 % (0.0-3.0); LARGE UNSTAINED CELL # 0.1 K/mm3 (0.0-0.4); LARGE UNSTAINED CELL % 1.7 % (0.0-4.0); LYMPH # 0.8 K/mm3 (1.5-4.5); LYMPH % 15.2 % (24.0-44.0); MEAN CORPUSCULAR HEMOGLOBIN 29.3 pg (27.0-33.0); MEAN CORPUSCULAR HGB CONC 33.8 g/dl (32.0-36.5); MEAN CORPUSCULAR VOLUME 86.8 fl (80.0-96.0); MONO # 0.3 K/mm3 (0.0-0.8); MONO % 5.8 % (0.0-5.0); NEUTROPHILS # 4.2 K/mm3 (1.8-7.7); PLATELET COUNT, AUTOMATED 157 k/mm3 (150-450); RED CELL DISTRIBUTION WIDTH 16.1 % (11.5-14.5); WHITE BLOOD COUNT 5.5 K/mm3 (4.0-10.0)
[2016-11-13 16:03] LABS: OSMOLALITY SERUM 299 MOSM/KG (280-301)
[2016-11-13] MEDS ORDERED: ENEMENE3 PR (16:06)
[2016-11-13] MEDS ORDERED: BISA10SU27 PR (16:06)
[2016-11-13] MEDS ORDERED: MILKSUS PO (16:06)
[2016-11-13] MEDS ORDERED: DOCU100C PO (16:06)
[2016-11-13] MEDS ORDERED: MELA5TAB14 PO (16:06)
[2016-11-13] MEDS ORDERED: ACET-654 PO (16:06)
[2016-11-13 16:14] LABS: ALBUMIN 3.8 GM/DL (3.2-5.2); ALBUMIN/GLOBULIN RATIO 1.27 (1.00-1.93); ALKALINE PHOSPHATASE 95 U/L (45-117); ALT/SGPT < 6 U/L (12-78); ANION GAP 8 MEQ/L (8-16); AST/SGOT 17 U/L (15-37); BILIRUBIN,DIRECT 0.2 MG/DL (0.0-0.2); BILIRUBIN,TOTAL 0.7 MG/DL (0.2-1.0); BLOOD UREA NITROGEN 25 MG/DL (7-18); CALCIUM LEVEL 8.3 MG/DL (8.8-10.2); CARBON DIOXIDE LEVEL 33 MEQ/L (21-32); CHLORIDE LEVEL 100 MEQ/L (98-107); CREATININE FOR GFR 1.47 MG/DL (0.70-1.30); GLOMERULAR FILTRATION RATE 48.7 (>35); GLUCOSE, FASTING 129 MG/DL (83-110); SODIUM LEVEL 141 MEQ/L (136-145); TOTAL PROTEIN 6.8 GM/DL (6.4-8.2)
--- NOTE | 2016-11-13 20:22 | IPN ---
DATE: 11/13/2016 Patient is currently in the emergency room. He is accompanied by his son, who provides some of his history. Patient is living at the [facility] and has lived there for the past three weeks. Son states he has been doing well with his physical therapy. Saturday states that patient fell and hit the back of his head. Patient reports he was trying to get to the bathroom by himself. He denies any loss of consciousness. States that he typically will have assistance getting to the bathroom. Due to his Parkinson's he has a difficult time. He does typically use a walker. The following day, on Saturday, patient fell out of bed. Son reports this is the second time that patient has fallen out of bed. The staff at [facility] noticed he was acting differently. Patient states he has noticed a change in his alertness, balance, and feels unsteady on his feet as compared to normal. Staff has noticed a droop in his eyes, specifically the right side. Son does not notice any changes in his speech, although he notes changes in his recent memory. On exam, patient does appear to be weaker on his right side, specifically right leg. It is noted he does have a facial droop on the right side. Patient is able to participate in conversation appropriately. I do not notice any slurs in his speech. He uses his words appropriately. Signs of mild trauma located on the back of his head with no tears in the skin. Spoke with Dr. Allan regarding patient's status, who states that his CT has no changes within the past 48 hours; however, given his mental status changes and memory changes, she feels more comfortable admitting him for further workup. Discussed case with Dr. An, who will be in to see the patient later. At this time, considering recommendation of syncope workup, seizure precautions. Will consider MRI and MRA of the brain. It is noted in his labs that his BUN and creatinine are elevated. Will discuss this case further with Dr. An.
[2016-11-13] MEDS ORDERED: GLUCAGON FOR INJ 1 MG VIAL (J1610) SC PRN (20:45)
[2016-11-13] MEDS ORDERED: DEXTROSE 50% 50 ML SYRINGE IV PRN (20:45)
[2016-11-13] MEDS ORDERED: GLUCOSE 4 GM CHEW TABLET PO PRN (20:45)
[2016-11-13] MEDS: HumaLOG INSULIN (NovoLOG) PER UNIT SC SCH (21:00)
[2016-11-13 22:35] VITALS: BP 146/67
--- NOTE | 2016-11-13 23:00 | REPUSA ---
Clinical history: Pain, swelling. Patient refused left lower extremity examination. Findings: The right common femoral, superficial femoral, popliteal, and other deep venous structures compress normally and demonstrate normal color Doppler flow. Normal venous waveforms with augmentatio n are seen. Impression: No evidence of deep vein thrombosis in the right femoral popliteal venous system.
--- NOTE | 2016-11-13 23:00 | REPUSA ---
Clinicaly History: syncope. Findings: Real-Time carotid duplex ultrasound with color Doppler flow was performed. Normal color Dop pler flow and arterial waveforms are noted. Mild atherosclerotic plaque is seen in the region of the carotid bulbs bilaterally. No elevated velocities are seen however. Antegrade blood flow is seen in t he right vertebral artery. The left vertebral artery was not visualized. The right ICA/CCA ratio jameel ures 0.65, and the left measures 1.23. Impression: No evidence of hemodynamically significant stenosis in the carotid arterial system bilate rally. Mild atherosclerotic plaque is seen in the region of the carotid bulbs bilaterally.
[2016-11-13] MEDS ORDERED: MOM 30ML SUSPENSION UDC PO PRN (23:30)
[2016-11-13] MEDS ORDERED: BISACODYL 10 MG SUPP PR PRN (23:30)
[2016-11-13] MEDS: SINEMET 25-100 MG TAB PO SCH (23:58)
[2016-11-13] MEDS: SIMVASTATIN 20 MG TAB PO SCH (23:59)
[2016-11-13] MEDS: rOPINIRole 1MG TAB PO SCH (23:59)
[2016-11-13] MEDS: PRIMIDONE 50 MG TAB PO SCH (23:59)
[2016-11-13] MEDS: DOCUSATE SODIUM 100 MG CAP PO SCH (23:59)
--- NOTE | 2016-11-14 01:54 | HPE ---
DATE OF ADMISSION: 11/13/2016 REASON FOR ADMISSION: Syncopal episode. HISTORY OF PRESENT ILLNESS: The patient is an 81-year-old male past medical history significant for Parkinson's disease, diabetes, diastolic and systolic congestive heart failure, severe pulmonary hypertension, history of SD, presented to the emergency room with his son after he had a fall. The patient is from [facility]. Most of the history was obtained from the patient as well as family members. He stated that he fell on Saturday. He was getting up out of the chair and reaching for something when he fell. He remained on the floor until he was found and at that time he was brought to the emergency room. CT scan of the head was done was negative. Returned back to [facility]. Later on that night he fell out of bed. Again, he did not participate in physical therapy on Saturday and then yesterday he was noted to not be himself by the staff. He was sent again to the emergency room for another CT scan that CT scan showed an 8 mm hemorrhagic contusion in the left frontal lobe, unchanged compared to previous. He had old bilateral basal ganglia and left internal capsule lacunar infarct, small vessel ischemic disease. Dr. An was consulted today after a repeat CT scan showed unchanged hemorrhagic contusion. His PA saw the patient and evaluated him and planned to discuss case with Dr. An who recommended the patient to be evaluated further for syncopal episode and possible seizures. MRI, MRA to be considered. The patient was admitted under hospitalist service. REVIEW OF SYSTEMS: The patient denied any headaches at this time. Denies any blurry vision, denied any increased weakness in lower extremity or upper extremity, only complained of some calf tenderness bilaterally and some numbness in bilateral hands which he stated he had for a long time. Denied any chest pain, shortness of breath, nausea, vomiting or diarrhea. No urinary incontinence. No other complaints. Past medical history significant for Parkinson's, diabetes, diastolic and systolic congestive heart failure with an EF of 50%, moderately severe pulmonary hypertension, hypertension, and hyperlipidemia, history of SD two years ago, osteoarthritis. Past surgical history significant for a defibrillator, tonsillectomy, adenoidectomy and gallbladder surgery. ALLERGIES: None. MEDICATIONS: - Tylenol 325 every four hours as needed pain or fever - Dulcolax suppository 10 mg per rectum as needed constipation - Zebeta 2.5 mg by mouth twice a day - carbidopa/levadopa two tablets by mouth four times a day - Colace 100 mg by mouth daily - vitamin D once a week - glipizide at 2.5 mg by mouth twice a day - lisinopril 2.5 mg by mouth daily - milk of magnesia as needed constipation - nitroglycerin as needed chest pain - Mysoline 50 mg by mouth daily - Requip 2 mg by mouth twice a day - simvastatin 20 mg by mouth at bedtime - sodium Fleet's enema as needed for constipation SOCIAL HISTORY: The patient lives at [facility]. No alcohol or tobacco use. FAMILY HISTORY: Noncontributory. PHYSICAL EXAMINATION: Temperature 98.8, pulse 89, respiratory rate 18, blood pressure 146/67, pulse ox 100% on room air. HEENT: Pupils equal, round, reactive to light and accommodation. NECK: Supple. No JVD. LUNGS: CTA bilaterally. CARDIAC: Regular rate and rhythm. ABDOMEN: Soft, nontender, nondistended. EXTREMITIES: No clubbing, cyanosis or edema. NEURO: The patient has some mild left-sided weakness compared to the right, mild left-sided facial droop. No other obvious deficits. LABORATORY FINDINGS: WBC 5.5, hemoglobin 11.3, hematocrit 33.4, platelet count 157. Sodium 141, potassium 4, chloride 100, BUN 25, creatinine 1.47, fasting glucose 129, ammonia level 28, troponin negative times two sets. TSH 1.5. IMAGING STUDIES: No evidence of significant stenosis on carotid ultrasound. Lower extremity showed no evidence of DVT on ultrasound. CT of the head showed a small 7 mm left frontal lobe hemorrhagic contusion unchanged from prior old bilateral basilar ganglia and left internal capsule lacunar infarct, small vessel ischemic disease, very small amount of subarachnoid hemorrhage overlying the left frontal lobe, unchanged from prior. ASSESSMENT AND PLAN: 1. Syncopal episode, unknown etiology, cannot rule out seizures. We will admit the patient to telemetry. We will monitor for any cardiac arrhythmia. We will repeat echo, EKG. We will order EEG to rule out seizures. 2. History of hemorrhagic contusion. Dr. An was consulted. He does not believe the patient has any neurosurgical issues at this point. He recommended the patient mobilize his neck in a soft collar during sleep. 3. History of Parkinson's: The patient follows up with neurology. Continue the patient's home medications. 4. History of diastolic and systolic congestive heart failure. EF of 50%. We will repeat echocardiogram. 5. History of moderately severe pulmonary hypertension. 6. History of SD, status post defibrillator. 7. DVT prophylaxis. Lovenox 30 mg subcutaneously daily. The patient will be seen by Dr. Peter Alvarado in the morning.
[2016-11-14] MEDS ORDERED: SLF 3 ML SYR IV PRN (03:15)
[2016-11-14] MEDS: SLF 3 ML SYR IV SCH ×4 (04:01→20:43)
[2016-11-14 04:39] VITALS: BP 117/83
[2016-11-14] MEDS: ACETAMINOPHEN TAB 650MG DOSE (2X325MG) PO PRN (04:51)
[2016-11-14 05:27] LABS: BASO % 0.1 % (0.0-1.0); EOS % 0.4 % (0.0-3.0); LARGE UNSTAINED CELL % 0.6 % (0.0-4.0); LYMPH # 0.4 K/mm3 (1.5-4.5); LYMPH % 6.2 % (24.0-44.0); MEAN CORPUSCULAR HEMOGLOBIN 28.7 pg (27.0-33.0); MEAN CORPUSCULAR HGB CONC 32.8 g/dl (32.0-36.5); MEAN CORPUSCULAR VOLUME 87.6 fl (80.0-96.0); MONO # 0.3 K/mm3 (0.0-0.8); NEUTROPHILS # 5.8 K/mm3 (1.8-7.7); NEUTROPHILS % 87.7 % (36.0-66.0); PLATELET COUNT, AUTOMATED 152 k/mm3 (150-450); RED CELL DISTRIBUTION WIDTH 16.1 % (11.5-14.5); WHITE BLOOD COUNT 6.7 K/mm3 (4.0-10.0)
[2016-11-14 05:44] LABS: ALBUMIN 3.6 GM/DL (3.2-5.2); ALBUMIN/GLOBULIN RATIO 1.06 (1.00-1.93); ALKALINE PHOSPHATASE 89 U/L (45-117); ALT/SGPT < 6 U/L (12-78); ANION GAP 10 MEQ/L (8-16); AST/SGOT 14 U/L (15-37); BILIRUBIN,TOTAL 1.3 MG/DL (0.2-1.0); BLOOD UREA NITROGEN 21 MG/DL (7-18); CALCIUM LEVEL 8.4 MG/DL (8.8-10.2); CARBON DIOXIDE LEVEL 29 MEQ/L (21-32); CHLORIDE LEVEL 102 MEQ/L (98-107); CREATININE FOR GFR 1.35 MG/DL (0.70-1.30); GLOMERULAR FILTRATION RATE 53.7 (>35); GLUCOSE, FASTING 134 MG/DL (83-110); POTASSIUM SERUM 3.7 MEQ/L (3.5-5.1); SODIUM LEVEL 141 MEQ/L (136-145)
[2016-11-14 08:00] VITALS: BP 116/55
[2016-11-14] MEDS: rOPINIRole 1MG TAB PO SCH ×2 (08:09→20:42)
[2016-11-14] MEDS: DOCUSATE SODIUM 100 MG CAP PO SCH ×2 (08:09→20:42)
[2016-11-14] MEDS: ENOXAPARIN 30 MG/0.3 ML SYR (J1650) SC SCH (08:09)
[2016-11-14] MEDS: LISINOPRIL *2.5 MG* TAB PO SCH (08:09)
[2016-11-14] MEDS: HumaLOG INSULIN (NovoLOG) PER UNIT SC SCH ×4 (08:09→20:17)
[2016-11-14] MEDS: BISOPROLOL FUMARATE 5 MG TAB PO SCH ×3 (08:10→20:15)
[2016-11-14] MEDS: SINEMET 25-100 MG TAB PO SCH ×4 (08:10→20:42)
[2016-11-14] MEDS: PRIMIDONE 50 MG TAB PO SCH ×2 (08:14→20:42)
--- NOTE | 2016-11-14 10:43 | ECGEPIP ---
Stationary ECG Study [facility] - ED Test Date: 2016-11-13 Pat Name: DARNELL NEWELL Department: Room: [place] [address] Gender: M Medical Insurance Coder: PeckB: 1935 Requested By: Adenike Davidson Order Number: [id number] Reading MD: Matheus Houston Measurements Intervals Palmer Rate: 79 P: 49 MI: 164 QRS: -19 QRSD: 98 T: 63 QT: 403 QTc: 463 Interpretive Statements SINUS RHYTHM LOW QRS VOLTAGE IN PRECORDIAL LEADS SEPTAL MYOCARDIAL INFARCTION, PROBABLY OLD BASELINE ARTIFACT AFFECTS INTERPRETATION SIMILAR TO 11/10/16 Electronically Signed On 11-14-2016 10:43:36 EST by Matheus Houston
[2016-11-14 12:00] VITALS: BP 103/52
--- NOTE | 2016-11-14 15:02 | IPN ---
DATE: 11/14/2016 81-year-old gentleman seen at bedside. The patient's sons are present as well. He was admitted yesterday having a history of frequent falls and had a negative head CT previously on Saturday. Head CT yesterday after a fall did show a small 7 mm frontal brain contusion with no signs of epidural or subdural. He was evaluated in the emergency department by Dr. An who did not feel that there was any need for neurosurgical intervention and felt that the patient should be admitted for workup for syncope. He does have ongoing issues with advancing Parkinson's, some issues with cognition and short-term memory with developing of early dementia. 2D echo and EEG are pending at this time. No specific complaints from the patient. OBJECTIVE: Temperature 99.3, pulse 86, respiratory rate is 20, blood pressure is 103/52, SpO2 is 97% on room air. GENERAL: The patient appears to be in no acute distress. He is alert, but pleasantly confused presently. HEENT: Unremarkable. LUNGS: Clear. HEART: Regular rate and rhythm. ABDOMEN: Soft. EXTREMITIES: No edema. No calf tenderness. Pipelines Laborer strength is equal. LABORATORY DATA: White count 6.7, hemoglobin 11.9, platelets 152. Sodium 141, potassium 3.7, chloride 102, bicarb 29, anion gap 10, BUN 21, creatinine 1.35, glucose is 134, calcium is 8.4, magnesium 2.0, total bilirubin 1.3, AST 14, ALT less than 6, alkaline phosphatase 89. Troponin times three is less than 0.02. He did have one this morning that was 0.41. TSH 1.510. Duplex carotid ultrasound no evidence of hemodynamically significant stenosis. Mild atherosclerotic plaque is noted in the region of the carotid bulbs bilaterally. Otherwise unremarkable. Ultrasound of the right lower extremity negative for deep vein thrombosis (DVT). Chest x-ray suggests platelike atelectasis versus linear fibrosis of the right base. Pacemaker in place. No acute disease processes. Head CT without contrast on admission did show a small 7 mm left frontal lobe hemorrhagic contusion, unchanged from previous study and no midline shift. He does have old bilateral basal ganglia and left internal capsular lacunar infarcts, small vessel ischemic disease and mild volume loss, very small amount of subarachnoid hemorrhage overlying the left frontal lobe, unchanged compared to previous study, as outlined above. ASSESSMENT/PLAN: 1. Syncopal episode, unknown etiology unable to rule out seizures. EEG is pending. Echo is pending. I did request Dr. Rosario to see the patient on consult. Remainder of the workup is unremarkable and the patient continues on telemetry for another 24 hours. 2. History of hemorrhagic contusions. Appreciate Dr. An's input. Did not have need for neurosurgical intervention. Will continue to follow clinically. 3. History of Parkinson's, which he has had recent increases in his medications. Dr. Rosario will see the patient on consult later today. 4. History of diastolic and systolic congestive heart failure with an EF 50% in the past. Will repeat echocardiogram. 5. History of moderate to severe pulmonary hypertension, stable. 6. History of myocardial infarction ([place]) status post defibrillator. 7. Deep vein thrombosis (DVT) prophylaxis, on Lovenox. DISPOSITION: Appreciate Dr. Rosario's further evaluation. I did have a lengthy discussion with the patient sons at bedside. They understand that their father is advanced in age and does have multiple medical issues, not to mention Parkinson's, which is a significant gait disturbance. They were agreeable to the current workup, but did not wish for us to pursue any further invasive studies and were most appreciative that Dr. An saw them in the emergency department and that Dr. Rosario will be by to see them later today. ADDENDUM: The patient did have a slight increase in his troponin today. We are leaving him on telemetry overnight. I would like to repeat a troponin on him tomorrow morning with repeat EKG.
[2016-11-14 16:00] VITALS: BP 129/67
[2016-11-14] MEDS ORDERED: NS 600 ML IV SCH (19:30)
[2016-11-14 20:00] VITALS: BP 92/50
[2016-11-14 20:10] VITALS: BP 82/44
[2016-11-14] MEDS: SIMVASTATIN 20 MG TAB PO SCH (20:42)
[2016-11-15] VITALS (7 sets, daily range): BP systolic 86–140; BP diastolic 48–77
[2016-11-15] MEDS: SLF 3 ML SYR IV SCH ×3 (05:22→20:56)
[2016-11-15 05:39] LABS: BASO % 0.4 % (0.0-1.0); EOS % 0.8 % (0.0-3.0); LARGE UNSTAINED CELL # 0.1 K/mm3 (0.0-0.4); LARGE UNSTAINED CELL % 1.6 % (0.0-4.0); LYMPH # 0.4 K/mm3 (1.5-4.5); LYMPH % 10.9 % (24.0-44.0); MEAN CORPUSCULAR HEMOGLOBIN 29.1 pg (27.0-33.0); MEAN CORPUSCULAR HGB CONC 33.4 g/dl (32.0-36.5); MEAN CORPUSCULAR VOLUME 87.3 fl (80.0-96.0); MONO # 0.2 K/mm3 (0.0-0.8); MONO % 5.4 % (0.0-5.0); NEUTROPHILS # 3.2 K/mm3 (1.8-7.7); PLATELET COUNT, AUTOMATED 143 k/mm3 (150-450); RED CELL DISTRIBUTION WIDTH 16.3 % (11.5-14.5)
[2016-11-15 05:49] LABS: ALKALINE PHOSPHATASE 74 U/L (45-117); ALT/SGPT < 6 U/L (12-78); ANION GAP 9 MEQ/L (8-16); AST/SGOT 25 U/L (15-37); BILIRUBIN,TOTAL 0.9 MG/DL (0.2-1.0); BLOOD UREA NITROGEN 37 MG/DL (7-18); CALCIUM LEVEL 7.8 MG/DL (8.8-10.2); CARBON DIOXIDE LEVEL 28 MEQ/L (21-32); CHLORIDE LEVEL 106 MEQ/L (98-107); CREATININE FOR GFR 1.81 MG/DL (0.70-1.30); GLOMERULAR FILTRATION RATE 38.3 (>35); GLUCOSE, FASTING 88 MG/DL (83-110); MAGNESIUM LEVEL 2.1 MG/DL (1.8-2.4); POTASSIUM SERUM 3.7 MEQ/L (3.5-5.1); SODIUM LEVEL 143 MEQ/L (136-145)
--- NOTE | 2016-11-15 05:52 | ECHO ---
DATE OF PROCEDURE: 11/14/2016 AGE: 81 GENDER: Male REFERRING PHYSICIAN: Dr. Mittal. HEIGHT: 67 inches. WEIGHT: 179 pounds. BODY SURFACE AREA: 1.92 sq m. INPATIENT: PCU Room 3216. INDICATION: Question syncope, collapse. MEASUREMENTS: 2D MEASUREMENTS: RV - 4.6 cm LV- 3.6 cm Septum - 1.0 cm Posterior wall - 1.0 cm Aortic root - 3.3 cm LA - 4.0 cm LVEF - 45% DOPPLER MEASUREMENTS: AV - 1.2 m/s LVOT - 0.9 m/s LVOT diameter - 2.0 cm MV-E: 63 A: 98 EA ratio 0.6 Early mitral deacceleration time - 176 ms E-prime - 6.9 A-prime - 16 E/E prime ratio - 9 PV - 0.85 m/s Pulmonary artery acceleration time - 88 ms RVSP - 61-66 mmHg IVC - 2.4 cm COMMENT: Normal sinus rhythm without intraventricular conduction disturbance. Technically difficult study in light of the patient's body habitus but diagnostically useful information was still obtained. Mildly dilated left atrium but normal left ventricular size. Right heart chamber sizes were at least moderately dilated. LV wall thickness was normal. On real-time imaging from the parasternal and apical projections, the mid to distal septum and apex were virtually akinetic. The mid to distal anterior wall was also markedly hypo- to akinetic. Other wall motion was normal. Moderate mitral annular thickening with slight thickening of the mitral leaflet edges but adequate leaflet excursion and no posterior systolic buckling. Three equal size aortic cusps with mildly thickened cusp edges but adequate cusp separation. Normal aortic root size. Pacing lead could be visualized traversing right heart structures but no other apparent intracardiac mass. No pericardial effusion. Color flow Doppler study taken from the parasternal and apical projection showed mild aortic, very mild mitral and moderately severe tricuspid insufficiency. Guided continuous wave Doppler of his aortic valve showed a normal peak systolic velocity against LV outflow tract obstruction. Pulsed and continuous wave Doppler of his LV inflow tract taken from the apical four-chamber projection showed normal diastolic filling velocities against mitral stenosis. There was more prominent late diastolic/atrial dependent filling pattern. A degree of LV diastolic dysfunction was further confirmed using tissue Doppler of his mitral annulus. However, his current estimated mean left atrial pressure was normal. Pulsed and continuous wave Doppler of his pulmonary trunk showed a normal peak systolic velocity against RV outflow tract obstruction. His pulmonary artery acceleration time was significantly abbreviated consistent with an elevated pulmonary vascular resistance. Guided continuous wave Doppler of his tricuspid valve allowed our estimation of his right ventricular systolic pressure (severely increased). His inferior vena cava was at least mildly dilated with reduced respiratory collapse consistent with an elevated central venous pressure. CONCLUSIONS: Normal left ventricular size and wall thickness with apical and distal septal akinesis and at least mild impairment of global resting systolic function. Mildly dilated left atrium with Doppler evidence of an impairment of LV diastolic function but currently normal estimated mean left atrial pressure. Moderately dilated right heart chambers with Doppler evidence of severe pulmonary hypertension. Mildly dilated IVC with reduced respiratory collapse consistent with right heart failure. Aortic valvular sclerosis without stenosis and only mild insufficiency. Moderate mitral annular calcification without inflow tract obstruction and very mild insufficiency. Normal appearing tricuspid valve with moderately severe insufficiency likely related to dilated tricuspid annulus. Comparing today's study with that of 09/21/2016, the estimated mean left atrial pressure was slightly lower but otherwise there was no significant change.
[2016-11-15] MEDS: HumaLOG INSULIN (NovoLOG) PER UNIT SC SCH ×4 (07:30→20:14)
[2016-11-15] MEDS: rOPINIRole 1MG TAB PO SCH ×2 (08:20→20:55)
[2016-11-15] MEDS: ENOXAPARIN 30 MG/0.3 ML SYR (J1650) SC SCH (08:20)
[2016-11-15] MEDS: DOCUSATE SODIUM 100 MG CAP PO SCH ×2 (08:20→20:56)
[2016-11-15] MEDS: SINEMET 25-100 MG TAB PO SCH ×4 (08:20→20:56)
[2016-11-15] MEDS: PRIMIDONE 50 MG TAB PO SCH ×2 (08:23→20:56)
--- NOTE | 2016-11-15 10:32 | EEG ---
DATE OF PROCEDURE: 11/14/2016 REFERRING PHYSICIAN: Dr. Peter Alvarado DIAGNOSIS: Syncopal episode. EEG NUMBER: [id number]. HISTORY: Patient is an 81-year-old man who lives at [facility]. He was getting out of chair and reaching for something when he fell down. He remained on the floor until he was found and was brought to emergency department for further evaluation. He had 8 mm hemorrhagic contusion in left frontal lobe. This EEG was done to rule out epileptic potential. He is currently on Sinemet, primidone, Requip, simvastatin, lisinopril. TECHNICAL DESCRIPTION: This digital EEG was recorded by 21 scalp, ear and two EKG electrodes and was reviewed in bipolar and referential montages following reformatting in 10-20 international electrode placement system. INTERPRETATION: Patient was noted to be in awake and drowsy states during this EEG. Resting awake background rhythm consisted of 6-7 Hz theta activity measuring 10-20 microvolts in amplitude. Stage II sleep was reviewed and was symmetric bilaterally. Hyperventilation could not be performed. Photic stimulation remained unremarkable. EKG revealed left bundle branch block with regular rhythm. No clear P-waves could be seen. No focal, lateralizing or epileptiform abnormalities were seen. No clinical or electrographic seizures were recorded. CONCLUSION: This EEG in awake, drowsy states, stage II sleep is abnormal due to presence of mild generalized slowing and low voltage consistent with nonspecific diffuse cerebral dysfunction such as seen in dementia and encephalopathy. No epileptiform abnormalities were seen. Clinical correlation is recommended.
[2016-11-15] MEDS: LISINOPRIL *2.5 MG* TAB PO SCH (10:36)
[2016-11-15] MEDS: BISOPROLOL FUMARATE 5 MG TAB PO SCH ×2 (10:37→20:13)
--- NOTE | 2016-11-15 12:42 | ECGEPIP ---
Stationary ECG Study [facility] Test Date: 2016-11-15 Pat Name: DARNELL NEWELL Department: Room: [place] [address] Gender: M Service Line Layer: STELLA : 1935 Requested By: DAMON Kang Order Number: [id number] Reading MD: Vivek Doll Measurements Intervals [place] Rate: 85 P: -1 VT: 100 QRS: 2 QRSD: 110 T: 87 QT: 398 QTc: 476 Interpretive Statements SINUS RHYTHM, significant artifact NONSPECIFIC T-WAVE ABNORMALITY Septal Q waves likely business services representative of previous infarct Compared to prior tracing of 11-13-16 Electronically Signed On 11-15-2016 12:42:09 EST by Vivek Doll
[2016-11-15] MEDS: ACETAMINOPHEN TAB 650MG DOSE (2X325MG) PO PRN (13:17)
--- NOTE | 2016-11-15 16:18 | IPN ---
DATE: 11/15/2016 81-year-old gentleman. No overnight issues reported. He does appear to be more alert today. No complaint of headache, blurry vision, double vision or tinnitus. Appreciate Dr. Rosario's input. I did have a discussion with the patient's son that he may have some post concussive issues related to the fall, but he does appear to be doing well today with no new issues. The nurse was concerned because he did have a strong smell to his urine and it did look to be a little purulent and was sent for UA and culture and sensitivity (C and S). OBJECTIVE 98.5, pulse 83, respiratory rate is 20, BP 118/59, SPO2 is 97% on room air. General: The patient appears in no acute distress. He is alert, pleasant. HEENT: Unremarkable. Lungs: Clear. Heart: Regular rhythm. Abdomen: Soft. Extremities: No edema or calf tenderness. LABORATORY DATA: White count 4.0, hemoglobin 10.8, platelets 143. Sodium 143, potassium 3.7, chloride 106, bicarb 28, anion gap 9, BUN is 37, creatinine 1.81, glucose 88, magnesium 2.1, albumin 3. ASSESSMENT/PLAN: 1. Syncopal episode, unknown etiology. Appreciate Dr. Rosario's input. EEG pending. Echo is pending. Remainder of workup appears to be unremarkable. No findings on telemetry. 2. History of hemorrhagic contusion involving the left frontal area. Dr. An did evaluate the patient in the ER and did not feel that this was a neurosurgical issue, but he have some mild concussion symptoms; with slowly resolving confusion and will need physical therapy (PT) to further evaluate for his gait. 3. History of Parkinson's with gait disturbance. Again, appreciate Dr. Rosario's input and physical therapy, occupational therapy. 4. 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 He appears to be compensated. Repeat echo is pending at this time due to syncopal episode. 5. History of moderate severe pulmonary hypertension, stable. 6. History of myocardial infarction (IA). Status post defibrillator. No current issues. 7. Deep venous thrombosis (DVT) prophylaxis, on Lovenox. DISPOSITION: We will see how the patient does today. Leave him on telemetry for another 24 hours; see how PT, OT advances him. He did have a slight increase in his troponin yesterday. I did repeat this again today, which was 0.45, appears to be stable. No EKG changes. Will repeat one more time tomorrow morning. DISPOSITION: Anticipate discharge back to [facility], within the next 24-48 hours.
[2016-11-15] MEDS: SIMVASTATIN 20 MG TAB PO SCH (20:56)
[2016-11-16 04:00] VITALS: BP 129/67
[2016-11-16 05:38] LABS: BASO % 0.2 % (0.0-1.0); EOS % 1.3 % (0.0-3.0); LARGE UNSTAINED CELL # 0.1 K/mm3 (0.0-0.4); LARGE UNSTAINED CELL % 2.7 % (0.0-4.0); LYMPH # 0.6 K/mm3 (1.5-4.5); LYMPH % 16.2 % (24.0-44.0); MEAN CORPUSCULAR HEMOGLOBIN 29.2 pg (27.0-33.0); MEAN CORPUSCULAR HGB CONC 33.2 g/dl (32.0-36.5); MONO # 0.3 K/mm3 (0.0-0.8); MONO % 7.2 % (0.0-5.0); NEUTROPHILS # 2.5 K/mm3 (1.8-7.7); NEUTROPHILS % 72.4 % (36.0-66.0); PLATELET COUNT, AUTOMATED 128 k/mm3 (150-450); RED CELL DISTRIBUTION WIDTH 16.1 % (11.5-14.5); WHITE BLOOD COUNT 3.5 K/mm3 (4.0-10.0)
[2016-11-16] MEDS: SLF 3 ML SYR IV SCH (05:45)
[2016-11-16 05:48] LABS: ALBUMIN/GLOBULIN RATIO 0.94 (1.00-1.93); BILIRUBIN,TOTAL 0.7 MG/DL (0.2-1.0); CALCIUM LEVEL 8.1 MG/DL (8.8-10.2); CREATININE FOR GFR 1.48 MG/DL (0.70-1.30); GLOMERULAR FILTRATION RATE 48.3 (>35); MAGNESIUM LEVEL 2.2 MG/DL (1.8-2.4); POTASSIUM SERUM 3.9 MEQ/L (3.5-5.1); TOTAL PROTEIN 6.2 GM/DL (6.4-8.2)
[2016-11-16] MEDS ORDERED: CIPROFLOXACIN 500 MG TAB PO SCH (06:00)
[2016-11-16 08:00] VITALS: BP 106/59
[2016-11-16] MEDS: LISINOPRIL *2.5 MG* TAB PO SCH (08:43)
[2016-11-16] MEDS: DOCUSATE SODIUM 100 MG CAP PO SCH (08:43)
[2016-11-16] MEDS: rOPINIRole 1MG TAB PO SCH (08:43)
[2016-11-16] MEDS: PRIMIDONE 50 MG TAB PO SCH (08:43)
[2016-11-16 08:44] VITALS: BP 129/67
[2016-11-16] MEDS: SINEMET 25-100 MG TAB PO SCH ×2 (08:44→12:12)
[2016-11-16] MEDS: BISOPROLOL FUMARATE 5 MG TAB PO SCH (08:44)
[2016-11-16] MEDS: HumaLOG INSULIN (NovoLOG) PER UNIT SC SCH ×2 (08:45→12:13)
[2016-11-16] MEDS: ENOXAPARIN 30 MG/0.3 ML SYR (J1650) SC SCH (08:46)
[2016-11-16 10:24] LABS: MICROSCOPIC INDICATED? MAN YES (NO)
[2016-11-16 10:28] LABS: BACTERIA, URINE SMALL AMOUNT; HYALINE CAST, URINE NONE SEEN /lpf (0-1); MICROSCOPIC EXAM UNSPUN; SQUAMOUS EPITHELIAL CELL URINE NONE SEEN /hpf (SMALL AMT); WBC, URINE TNTC /hpf (0-3)
[2016-11-16] MEDS ORDERED: CIPR500T89 PO (10:44)
--- NOTE | 2016-11-16 12:04 | DSES ---
DATE OF ADMISSION: 11/13/2016 DATE OF DISCHARGE: 11/16/2016 PRIMARY CARE PROVIDER: Is through [facility]. CONSULTANTS: Dr. An, Dr. Rosario. PROCEDURES: None. COMPLICATIONS: None. ADMISSION/DISCHARGE DIAGNOSES: 1. Syncope versus mechanical fall. 2. Hemorrhagic contusion involving the left frontal lobe with possible postconcussive syndrome. 3. History of Parkinson with unsteady gait. 4. Urinary tract infection. 5. 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 6. History of moderate to severe pulmonary hypertension. 7. History of myocardial infarction (IN) status post defibrillator. 8. Hypertension. 9. Hyperlipidemia. 10. Diabetes. 11. Restless leg syndrome. 12. Urinary tract infection. BRIEF HOSPITAL COURSE: Mr. Ledesma is a pleasant, 81-year-old gentleman that is a resident of the [facility], apparently had a series of falls last weekend resulting in him coming to the emergency department for further evaluation since it was felt that he may have hit his head. The CT scan did show a parenchymal contusion/mild hemorrhagic contusion involving the left frontal lobe approximately 8 mm. There was no midline shift. No mass effect. No skull fracture. Dr. An was consulted in the emergency department who felt that there was no urgent need for surgical intervention and felt that the patient should be admitted for further workup due to his syncopal episode. He was admitted, placed in progressive care unit (PCU), did not show any abnormalities on telemetry. 2-D echo did not show any new or worsening function. Electroencephalogram (EEG) was negative for epileptiform waves. He did demonstrate some slowing in low amplitude, which may be consistent with his history of dementia as well as some metabolic encephalopathy. Ultrasound of the right lower extremity due to a small contusion and swelling was negative for deep venous thrombosis (DVT). Ultrasound of carotids negative for stenosis. Chest x-ray did not demonstrate any acute cardiopulmonary processes, and Dr. Rosario did see the patient at bedside. He did not feel that there needed to be any further modification of his medications for his parkinsonism. Physical therapy did continue to work with the patient and on the morning of discharge he was felt to be relatively close to his baseline, but he may need some ongoing physical therapy of which he can receive at the [facility]. Apparently, they did have difficulty collecting a urinalysis while in the emergency department as well as on the floor. So this morning we did do a straight cath, which did demonstrate bacteruria as well as leukocyte esterase, and we will go ahead and treat him for a urinary tract infection with Cipro, which he can take orally at the [facility]. For further information regarding intake, physical, labs, diagnostics, please refer to the history and physical. Discharge condition is good. DISPOSITION: Discharge to [facility] shelter. PHYSICAL EXAMINATION: Temperature is 98, pulse is 87, respiratory rate is 20, blood pressure (BP) 106/59, SpO2 is 98% on room air. General: The patient appears to be in no acute distress, is alert, oriented. HEENT: Unremarkable. Lungs: Clear to auscultation. Heart: Regular rate and rhythm. Abdomen: Soft. Extremities: No edema. No calf tenderness. LABORATORY DATA: White count is 3.5, hemoglobin is 11, platelets are 128,000. Sodium 142, potassium 3.9, chloride 104, bicarbonate 31, anion gap 7, BUN is 37, creatinine is 1.48, glucose 116. Calcium 8.1, magnesium 2.2. AST is 25, ALT 8, alkaline phosphatase 75. Troponin is 0.18 and trending downward. Urine culture is pending at this time. DISCHARGE MEDICATIONS: - Cipro 500 mg twice a day for 10 days - Tylenol 650 mg every 4 hours as needed - bisacodyl laxative 10 mg per rectum daily as needed - bisoprolol 2.5 mg twice a day - carbidopa/levadopa 25/100 - Colace 100 mg twice a day - vitamin D 50,000 units weekly - glipizide 2.5 mg twice a day - lisinopril 2.5 mg daily - melatonin 5 mg nightly - Milk of Magnesia 30 mL daily as needed, constipation - sublingual nitroglycerin 0.4 mg sublingually every 5 minutes as needed - primidone 50 mg twice a day - ropinirole 2 mg twice a day - simvastatin 20 mg nightly - Fleet enema daily as needed DISCHARGE INSTRUCTIONS: Discharge to [facility]. May need some continued physical therapy. Please refer to physical therapy's recommendations. Activity as tolerated. Consistent carbohydrate diet. Followup with primary care provider in a week. Should seek medical attention if symptoms should worsen or progress. Discharge took approximately 35 minutes.
== END 2016-11-16 12:55 | DRG 85 ==
LOC: M ED 15:09 → M ED INP 20:27 → M PCU 22:35
PROVIDERS: ADMIT Internal Medicine; ATTEND Hospitalist
DX: S06.330A Contusion and laceration of cerebrum, unspecified, without loss of consciousness, initial encounter (principal); G93.49 Other encephalopathy; I50.42 Chronic combined systolic (congestive) and diastolic (congestive) heart failure; N39.0 Urinary tract infection, site not specified; F07.81 Postconcussional syndrome; X58.XXXA Exposure to other specified factors, initial encounter; Y92.129 Unspecified place in nursing home as the place of occurrence of the external cause; Y93.89 Activity, other specified; Y99.8 Other external cause status; E11.42 Type 2 diabetes mellitus with diabetic polyneuropathy; E78.00 Pure hypercholesterolemia, unspecified; I11.0 Hypertensive heart disease with heart failure; I25.2 Old myocardial infarction; M19.90 Unspecified osteoarthritis, unspecified site; F03.90 Unspecified dementia, unspecified severity, without behavioral disturbance, psychotic disturbance, mood disturbance, and anxiety; G20 Parkinson's disease; I27.2 Other secondary pulmonary hypertension; E78.5 Hyperlipidemia, unspecified; R55 Syncope and collapse; R56.9 Unspecified convulsions; I87.2 Venous insufficiency (chronic) (peripheral); E11.618 Type 2 diabetes mellitus with other diabetic arthropathy; R26.81 Unsteadiness on feet; G25.81 Restless legs syndrome; Z79.82 Long term (current) use of aspirin; Z95.810 Presence of automatic (implantable) cardiac defibrillator; Z79.899 Other long term (current) drug therapy; Z79.84 Long term (current) use of oral hypoglycemic drugs

== ENCOUNTER → 2016-11-13 | Outpatient (REF) ==
[2016-11-13 12:06] LABS: MEAN CORPUSCULAR HEMOGLOBIN 29.9 pg (27.0-33.0); MEAN CORPUSCULAR HGB CONC 33.7 g/dl (32.0-36.5); MEAN CORPUSCULAR VOLUME 88.7 fl (80.0-96.0); RED CELL DISTRIBUTION WIDTH 16.5 % (11.5-14.5); WHITE BLOOD COUNT 6.2 K/mm3 (4.0-10.0)
[2016-11-13 12:32] LABS: CALCIUM LEVEL 8.5 MG/DL (8.8-10.2); CREATININE FOR GFR 1.5 MG/DL (0.70-1.30); GLOMERULAR FILTRATION RATE 47.6 (>35); POTASSIUM SERUM 4.1 MEQ/L (3.5-5.1)
== END ==
DX: E11.9 Type 2 diabetes mellitus without complications (principal); I50.9 Heart failure, unspecified

== ENCOUNTER → 2016-11-20 | Outpatient (REF) ==
[~2016-11-20] MED LIST changes: +ACET-654 PO; +BISA10SU27 PR; +DOCU100C PO; +ENEMENE3 PR; +LISI2.5T3 PO; +MELA1LIQ2 PO; +MELA5TAB14 PO; +MILKSUS PO
--- NOTE | 2016-11-20 21:01 | NOCOX ---
DATE OF PROCEDURE: REQUESTING PROVIDER: Dr. Christal Kumar Nocturnal oximetry was performed on for what I assume is room air. Oxygen saturation ranged from 74% to 100%, pulse ranged from 42 to 109. Initial oxygen saturation was 99% with a heart rate of 60. There were variable desaturations throughout the night. However, the patient had removed the oximetry probe for the majority of the night. The variable desaturations were in a Fidencio-Cleary pattern. The total time with an oxygen saturation less than 88% was 2 hours and 52 minutes. However, this was likely including the time when the patient was disconnected from the probe. Recommend repeating oximetry. IMPRESSION: Fidencio-Cleary respirations with variable desaturations.
== END ==
DX: I27.2 Other secondary pulmonary hypertension (principal); Z79.899 Other long term (current) drug therapy

== ENCOUNTER → 2016-11-20 | Outpatient (REF) ==
[2016-11-20 11:24] LABS: CREATININE FOR GFR 1.3 MG/DL (0.70-1.30); GLOMERULAR FILTRATION RATE 56.1 (>35)
[2016-11-20 11:34] LABS: MEAN CORPUSCULAR HEMOGLOBIN 29.9 pg (27.0-33.0); MEAN CORPUSCULAR HGB CONC 34.3 g/dl (32.0-36.5); MEAN CORPUSCULAR VOLUME 87.2 fl (80.0-96.0); RED CELL DISTRIBUTION WIDTH 15.5 % (11.5-14.5); WHITE BLOOD COUNT 4.4 K/mm3 (4.0-10.0)
== END ==
DX: Z51.81 Encounter for therapeutic drug level monitoring (principal); Z79.899 Other long term (current) drug therapy

== ENCOUNTER → 2016-11-26 | Outpatient (REF) ==
--- NOTE | 2016-11-28 11:37 | NOCOX ---
DATE OF PROCEDURE: 11/26/2016 NOTE: Overnight oximetry was done on 2 liters by nasal cannula. A total of 10 hours and 5 minutes of data was reviewed. Mean oxygen saturation for the study was 99% with a minimum recorded value of 54% that may have been artifactual. He spent 97.9% of the time with saturations greater than or equal to 98%. He spent 1.6% of the time with saturations less than 88% (9 minutes and 46 seconds). The longest continuous time was only 54 seconds. In reviewing the SpO2 waveform, there were minimal fluctuations into early the a.m. and those changes appeared to be artifactual. IMPRESSION: Acceptable oxygen on 2 liters by nasal cannula.
== END ==
DX: R09.02 Hypoxemia (principal)

== ENCOUNTER → 2016-11-27 | Outpatient (REF) ==
[2016-11-27 11:14] LABS: MEAN CORPUSCULAR HEMOGLOBIN 29.5 pg (27.0-33.0); MEAN CORPUSCULAR HGB CONC 34.3 g/dl (32.0-36.5); MEAN CORPUSCULAR VOLUME 85.9 fl (80.0-96.0); RED CELL DISTRIBUTION WIDTH 16.3 % (11.5-14.5); WHITE BLOOD COUNT 4.6 K/mm3 (4.0-10.0)
[2016-11-27 11:20] LABS: CALCIUM LEVEL 8.1 MG/DL (8.8-10.2); CREATININE FOR GFR 1.4 MG/DL (0.70-1.30); GLOMERULAR FILTRATION RATE 51.5 (>35)
== END ==
DX: I50.9 Heart failure, unspecified (principal)

== ENCOUNTER → 2016-12-04 | Outpatient (REF) ==
[2016-12-04 10:35] LABS: MEAN CORPUSCULAR HEMOGLOBIN 28.9 pg (27.0-33.0); MEAN CORPUSCULAR HGB CONC 33.5 g/dl (32.0-36.5); WHITE BLOOD COUNT 3.9 K/mm3 (4.0-10.0)
[2016-12-04 10:38] LABS: ANION GAP 6 MEQ/L (8-16); BLOOD UREA NITROGEN 16 MG/DL (7-18); CALCIUM LEVEL 8.5 MG/DL (8.8-10.2); CARBON DIOXIDE LEVEL 32 MEQ/L (21-32); CHLORIDE LEVEL 102 MEQ/L (98-107); CREATININE FOR GFR 1.09 MG/DL (0.70-1.30); GLOMERULAR FILTRATION RATE > 60.0 (>35); GLUCOSE, FASTING 119 MG/DL (83-110); POTASSIUM SERUM 3.9 MEQ/L (3.5-5.1); SODIUM LEVEL 140 MEQ/L (136-145)
== END ==
DX: I50.9 Heart failure, unspecified (principal)

== ENCOUNTER → 2016-12-11 | Outpatient (REF) | payer MEDICARE ==
[2016-12-11 10:14] LABS: CALCIUM LEVEL 8.7 MG/DL (8.8-10.2); CREATININE FOR GFR 1.32 MG/DL (0.70-1.30); GLOMERULAR FILTRATION RATE 55.1 (>35); POTASSIUM SERUM 3.7 MEQ/L (3.5-5.1)
[2016-12-11 10:19] LABS: MEAN CORPUSCULAR HEMOGLOBIN 28.4 pg (27.0-33.0); MEAN CORPUSCULAR HGB CONC 34.3 g/dl (32.0-36.5); MEAN CORPUSCULAR VOLUME 82.8 fl (80.0-96.0); RED CELL DISTRIBUTION WIDTH 16.1 % (11.5-14.5); WHITE BLOOD COUNT 3.8 K/mm3 (4.0-10.0)
== END ==
DX: I50.9 Heart failure, unspecified (principal)

== ENCOUNTER → 2016-12-19 | Outpatient (CLI) | payer MEDICARE ==
--- NOTE | 2016-12-19 11:03 | REP ---
CT CERVICAL SPINE WITHOUT CONTRAST: HISTORY: Extremity weakness. COMPARISON: 11/10/2016. There is no acute fracture or subluxation. Disc bulges with associated osteophyte formation are present at the C2-3, C3-4, C5-6, and C6-7 levels. A disc bulge is present at the C4-5 level. There is minimal to mild narrowing of the spinal canal. Uncinate process and/or facet hypertrophy are present at the C2-3 through C7-T1 levels. These findings produce minimal to severe narrowing of the neural foramina. Subchondral cysts are present in the C6 and C7 vertebral bodies. The C2-3 through C7-T1 intervertebral discs are decreased in height consistent with disc degeneration. A 9 mm hypodensity with a punctate calcification is present in the left lobe. This may represent a cyst. IMPRESSION: 1. There is cervical spondylosis at the C2-3 through C7-T1 levels. 2. There is a 9 mm hypodensity in the left thyroid lobe. This may represent a cyst. Ultrasound may be helpful for further evaluation. Signed by Curt Veloz MD 12/19/2016 11:07 A
--- NOTE | 2016-12-19 11:15 | REP ---
CT LUMBAR SPINE WITHOUT CONTRAST: HISTORY: Extremity weakness. A diffuse disc bulge is present at the L1-2 level. There are 4 mm of retrolisthesis of L1 on L2. There is minimal compression at the thecal sac. There is hypertrophy of the posterior articulating facets. The L1 nerves exit the neural foramina without compression. A diffuse disc bulge is present at the L2-3 level. There is hypertrophy of the ligamenta flava and posterior articulating facets. These findings produce mild central canal stenosis. The L2 nerves exit the neural foramina without compression. A diffuse disc bulge is present at the L3-4 level. There is hypertrophy of the ligamenta flava and posterior articulating facets. These findings produce mild central canal stenosis. The L3 nerves exit the neural foramina without compression. A diffuse disc bulge is present at the L4-5 level. There is hypertrophy of the ligamenta flava and posterior articulating facets. These findings produce mild central canal stenosis. The L4 nerves exit the neural foramina without compression. A diffuse disc bulge is present at the L5-S1 level. There is minimal compression of the thecal sac. There is hypertrophy of the posterior articulating facets. There is compression of the L5 nerves in the neural foramina. The lumber intervertebral discs are decreased in height. Vacuum phenomenon is present at the L1-2 through L3-4 levels. These findings are consistent with disc degeneration. The vertebral bodies are normal in height. IMPRESSION: 1. Diffuse disc bulge and retrolisthesis at the L1-2 level with minimal thecal sac compression. 2. Mild central canal stenosis at the L2-3 through L4-5 level secondary to disc bulge, ligamentous and facet hypertrophy. 3. Diffuse disc bulge at the L5-S1 level with minimal thecal sac compression. There is compression of the L5 nerves in the neural foramina. Signed by Curt Veloz MD 12/19/2016 11:25 A
== END ==
LOC: M RAD 09:58
PROVIDERS: ATTEND Psychiatry & Neurology Neurology
DX: M48.00 Spinal stenosis, site unspecified (principal); R53.1 Weakness; M51.36 Other intervertebral disc degeneration, lumbar region; M51.37 Other intervertebral disc degeneration, lumbosacral region

== ENCOUNTER → 2016-12-25 | Outpatient (REF) ==
[2016-12-25 12:14] LABS: TOTAL PROTEIN 6.2 GM/DL (6.4-8.2)
[2016-12-26 11:34] LABS: ALBUMIN 3.61 GM/DL (3.29-5.55); ALBUMIN % 58.2 % (55.8-66.1); GAMMA GLOBULIN % 14.9 % (11.1-18.8)
== END ==
DX: Z51.81 Encounter for therapeutic drug level monitoring (principal); Z79.01 Long term (current) use of anticoagulants; E11.9 Type 2 diabetes mellitus without complications

== ENCOUNTER → 2016-12-27 | Outpatient (REF) | payer MEDICARE ==
--- NOTE | 2016-12-27 12:14 | REP ---
THYROID ULTRASOUND: Real-time sonographic evaluation of the thyroid performed and demonstrates both lobes to be normal in size, right lobe measures 3.8 x 1.7 x 2.2 cm and the left lobe 4.1 x 2.2 x 2.3 cm. There is a cyst in the right lobe measuring 1.3 x 0.7 x 1.0 cm. There is a cyst in the left lobe measuring 1.6 x 1.7 x 1.4 cm, containing a small calcification along the inner wall. IMPRESSION: There is a cyst seen in each lobe of the thyroid as discussed in detail above. Signed by Tang Mejia MD 12/27/2016 12:59 P
== END ==
LOC: M RAD 08:05 → EDSTATUS 10:00 → M RAD 12:00
PROVIDERS: ATTEND Physician Assistant
DX: E04.1 Nontoxic single thyroid nodule (principal)

== ENCOUNTER → 2017-01-09 | Outpatient (REF) ==
[2017-01-09 11:09] LABS: MEAN CORPUSCULAR HEMOGLOBIN 28.9 pg (27.0-33.0); MEAN CORPUSCULAR HGB CONC 32.1 g/dl (32.0-36.5); MEAN CORPUSCULAR VOLUME 90.2 fl (80.0-96.0); RED CELL DISTRIBUTION WIDTH 17.7 % (11.5-14.5); WHITE BLOOD COUNT 4.6 K/mm3 (4.0-10.0)
[2017-01-09 11:17] LABS: ANION GAP 5 MEQ/L (8-16); BLOOD UREA NITROGEN 21 MG/DL (7-18); CALCIUM LEVEL 8.1 MG/DL (8.8-10.2); CARBON DIOXIDE LEVEL 31 MEQ/L (21-32); CHLORIDE LEVEL 107 MEQ/L (98-107); CREATININE FOR GFR 1.07 MG/DL (0.70-1.30); GLOMERULAR FILTRATION RATE > 60.0 (>35); GLUCOSE, FASTING 202 MG/DL (83-110); SODIUM LEVEL 143 MEQ/L (136-145)
== END ==
DX: I50.9 Heart failure, unspecified (principal)

== ENCOUNTER → 2017-01-14 | Outpatient (CLI) | payer MEDICARE ==
--- NOTE | 2017-01-14 16:18 | REP ---
CT HIP WITHOUT CONTRAST: REASON: Thigh pain. COMPARISON CT: None. Anterior to the left femoral neck within the soft tissues there is irregular calcification in the iliopsoas muscle measuring approximately 3.8 cm in length by 1.3 cm anterior to posterior x 2.2 cm in width. The bones are demineralized. Degenerative changes are seen involving the hip with asymmetric hip joint space narrowing and marginal osteophytosis. There is no evidence of an acute fracture or dislocation. IMPRESSION: 1. Findings suggestive of iliopsoas myositis ossificans which needs to be correlated clinically. 2. Degenerative changes and other findings as described above. Signed by Phoenix Bailey DO 01/14/2017 04:54 P
== END ==
LOC: M RAD 09:57
PROVIDERS: ATTEND Psychiatry & Neurology Neurology
DX: M16.12 Unilateral primary osteoarthritis, left hip (principal); R93.6 Abnormal findings on diagnostic imaging of limbs

== ENCOUNTER → 2017-01-30 | Outpatient (REF) | payer MEDICARE ==
[2017-01-30 14:15] LABS: MAGNESIUM LEVEL 2.5 MG/DL (1.8-2.4); PERCENT SATURATION 28.4 % (19.7-37.4)
== END ==
DX: M79.606 Pain in leg, unspecified (principal); Z79.899 Other long term (current) drug therapy; E11.9 Type 2 diabetes mellitus without complications

== ENCOUNTER → 2017-02-05 | Outpatient (REF) | payer MEDICARE ==
[2017-02-05 10:04] LABS: ANION GAP 7 MEQ/L (8-16); BLOOD UREA NITROGEN 20 MG/DL (7-18); CALCIUM LEVEL 8.2 MG/DL (8.8-10.2); CARBON DIOXIDE LEVEL 31 MEQ/L (21-32); CHLORIDE LEVEL 103 MEQ/L (98-107); CREATININE FOR GFR 1.06 MG/DL (0.70-1.30); GLOMERULAR FILTRATION RATE > 60.0 (>35); GLUCOSE, FASTING 157 MG/DL (83-110); POTASSIUM SERUM 4.3 MEQ/L (3.5-5.1); SODIUM LEVEL 141 MEQ/L (136-145)
[2017-02-05 10:10] LABS: MEAN CORPUSCULAR HEMOGLOBIN 29.9 pg (27.0-33.0); MEAN CORPUSCULAR HGB CONC 33.2 g/dl (32.0-36.5); RED CELL DISTRIBUTION WIDTH 15.8 % (11.5-14.5); WHITE BLOOD COUNT 5.2 K/mm3 (4.0-10.0)
== END ==
DX: I50.9 Heart failure, unspecified (principal)

== ENCOUNTER 2017-03-12 14:20 | Inpatient (IN) | payer MEDICARE ==
[~2017-03-12] VITALS: Ht 172.7 cm; Wt 80.8 kg
[~2017-03-12 14:20] MED LIST changes: -ACET-654 PO; +ACET1TAB17 PO; -BIOF4GEL2 EXT; +CIPR-249 PO; -DOCU100C PO; +DOCU100C16 PO; +ENEMENE16 PR; -ENEMENE3 PR; -GLIP2.5T6 PO; -HYDR-3713 PO; +LOPE2CAP PO; -LOPE2TAB PO; -MELA5TAB14 PO; +MELA5TAB17 PO; +META1TAB22 PO; -META800T82 PO; -MIRT1TAB PO; -NEUR100C PO; -NORC1TAB4 PO; -VITA-130 PO; -VITA100T96 PO; +VITA1CAP40 PO; +VITA400C7 PO; -VITA50003 PO; +VITA500T PO
[2017-03-12] MEDS ORDERED: NS 500 ML IV ONE (14:45)
[2017-03-12 14:59] LABS: BASO % 0.2 % (0.0-1.0); EOS # 0.1 K/mm3 (0.0-0.50); EOS % 1.5 % (0.0-3.0); LARGE UNSTAINED CELL # 0.1 K/mm3 (0.0-0.4); LYMPH % 16.1 % (24.0-44.0); MEAN CORPUSCULAR HGB CONC 32.8 g/dl (32.0-36.5); MEAN CORPUSCULAR VOLUME 91.4 fl (80.0-96.0); MONO # 0.3 K/mm3 (0.0-0.8); MONO % 4.8 % (0.0-5.0); NEUTROPHILS # 4.4 K/mm3 (1.8-7.7); NEUTROPHILS % 76.5 % (36.0-66.0); PLATELET COUNT, AUTOMATED 140 k/mm3 (150-450); RED CELL DISTRIBUTION WIDTH 14.5 % (11.5-14.5); WHITE BLOOD COUNT 5.8 K/mm3 (4.0-10.0)
[2017-03-12 15:00] LABS: ABG BASE EXCESS 1.1 (-2.0-2.0); ABG HCO3 25.1 MEQ/L (22.0-26.0); ABG PARTIAL PRESSURE CO2 37.8 mmHg (35.0-45.0); ABG PARTIAL PRESSURE O2 103.2 mmHg (75.0-100.0); ABG STANDARD HCO3 25.4 MEQ/L (22.0-26.0); ABG TOTAL CO2 26.3 MEQ/L (23.0-31.0)
[2017-03-12 15:05] LABS: INR 1.19
[2017-03-12 15:19] LABS: ANION GAP 7 MEQ/L (8-16); BLOOD UREA NITROGEN 78 MG/DL (7-18); CALCIUM LEVEL 7.9 MG/DL (8.8-10.2); CARBON DIOXIDE LEVEL 26 MEQ/L (21-32); CHLORIDE LEVEL 110 MEQ/L (98-107); CREATININE FOR GFR 5.42 MG/DL (0.70-1.30); GLOMERULAR FILTRATION RATE 10.8 (>35); GLUCOSE, FASTING 88 MG/DL (83-110); SODIUM LEVEL 143 MEQ/L (136-145)
[2017-03-12 15:21] LABS: POTASSIUM SERUM 5.7 MEQ/L (3.5-5.1)
--- NOTE | 2017-03-12 15:28 | REP ---
Clinical: Altered mental status . Comparison: 03/12/2017 . Findings: The mediastinum and cardiac silhouette are stable and within normal limits for portable technique. The lung ortega suggest subtle basilar atelectasis without acute effusion, or pneumothorax. Skeletal structures are intact. Impression: Subtle bibasilar atelectasis similar to prior examination. Signed by Werner Jack MD 03/12/2017 03:20 P
[2017-03-12] MEDS ORDERED: MIRT1TAB PO (15:36)
[2017-03-12] MEDS ORDERED: NEUR100C PO (15:37)
[2017-03-12] MEDS ORDERED: HYDR-3713 PO (15:39)
[2017-03-12] MEDS ORDERED: BIOF4GEL2 TOP (15:42)
[2017-03-12] MEDS ORDERED: LASI40TA PO (15:42)
[2017-03-12] MEDS ORDERED: NORC1TAB4 PO (16:15)
[2017-03-12] MEDS ORDERED: ACET1TAB17 PO (16:15)
[2017-03-12] MEDS ORDERED: GLIP2.5T6 PO (16:23)
[2017-03-12] MEDS ORDERED: VITA100T96 PO (16:23)
[2017-03-12] MEDS ORDERED: DEXTROSE 50% 50 ML SYRINGE IV PRN (16:30)
[2017-03-12] MEDS ORDERED: IPRATROPIUM 0.5MG/ALBUTEROL 2.5MG INH SOL UD 3ML (DUONEB)(J7620) NEB PRN (16:30)
[2017-03-12] MEDS ORDERED: NS 1,000 ML IV SCH (17:00)
[2017-03-12] MEDS: HumaLOG INSULIN (NovoLOG) PER UNIT SC SCH (17:19)
[2017-03-12 18:30] VITALS: BP 127/66
[2017-03-12] MEDS ORDERED: NITROGLYCERIN 0.4 MG SUBL TABLET SL PRN (19:30)
[2017-03-12] MEDS ORDERED: BISACODYL 10 MG SUPP PR PRN (19:30)
[2017-03-12] MEDS ORDERED: NORCO, ANEXSIA 5/325MG TABLET (HYDROcodone/ACETAMINOPHEN) PO PRN (19:30)
[2017-03-12] MEDS ORDERED: MOM 30ML SUSPENSION UDC PO PRN (19:30)
[2017-03-12] MEDS: IPRATROPIUM 0.5MG/ALBUTEROL 2.5MG INH SOL UD 3ML (DUONEB)(J7620) NEB SCH (20:00)
[2017-03-12] MEDS: rOPINIRole 1MG TAB PO SCH (20:35)
[2017-03-12] MEDS: GABAPENTIN 100 MG CAP PO SCH (20:35)
[2017-03-12] MEDS: DOCUSATE SODIUM 100 MG CAP PO SCH (20:35)
[2017-03-12] MEDS: SINEMET 25-100 MG TAB PO SCH (20:35)
[2017-03-12] MEDS: HEPARIN SOD (PORCINE) 5000 UNITS/ML VIAL SC SCH (20:35)
[2017-03-12] MEDS: PRIMIDONE 50 MG TAB PO SCH (20:36)
[2017-03-12] MEDS: BISOPROLOL FUM 2.5 MG PER 1/2TAB PO SCH (20:36)
[2017-03-12] MEDS: MIRTAZAPINE 7.5MG PER 1/2 TABLET PO SCH (20:36)
[2017-03-12] MEDS: NORCO, ANEXSIA 5/325MG TABLET (HYDROcodone/ACETAMINOPHEN) PO SCH (21:13)
[2017-03-12 22:00] VITALS: BP 118/56
--- NOTE | 2017-03-12 22:33 | REP ---
Clinical: Urinary retention. Technique: Real time montoya scale and color evaluation using curved array transducers. Comparison: 06/28/2012. Findings: The bilateral kidneys are echogenic and normal in reniform shape with increased central sinus fat consistent with chronic medical renal disease. A 3.2 x 4.0 x 3.0 cm right lower pole renal cyst is identified and stable compared to 2011. Mild right-sided hydroureteronephrosis is suggested without nephrolithiasis or mass lesion. Left kidney without hydronephrosis, nephrolithiasis or mass lesion. Choi catheter in collapsed bladder. Right kidney measures 11.6 x 6.0 x 4.5 cm. Left kidney measures 12.6 x 5.7 x 6.9 cm. Impression: 1. Chronic medical renal disease with 4 cm right lower pole renal cyst similar to prior examination. 2. Mild right-sided hydroureteronephrosis suggested. Signed by Werner Jack MD 03/12/2017 10:24 P
[2017-03-13] MEDS: HumaLOG INSULIN (NovoLOG) PER UNIT SC SCH ×5 (00:18→21:00)
[2017-03-13] MEDS: IPRATROPIUM 0.5MG/ALBUTEROL 2.5MG INH SOL UD 3ML (DUONEB)(J7620) NEB SCH ×2 (02:00→07:48)
[2017-03-13] MEDS ORDERED: DEXTROSE 50% 50 ML SYRINGE IV ONE (02:45)
--- NOTE | 2017-03-13 05:56 | HPE ---
DATE OF ADMISSION: 03/12/2017 CHIEF COMPLAINT: Altered mental status. HISTORY OF PRESENT ILLNESS: Patient is an 82-year-old male who was sent from a senior living to be evaluated for abnormal chemistry and lethargy. Patient was lethargic and slept most of the day for the past last four days. Labs done today at a senior living did reveal an elevated creatinine level to 5.7 from normal. The abnormal lab was confirmed in the emergency department (ED) upon arrival. Also, a Choi did collect 2700 mL of urine upon insertion. Patient remained lethargic but easily arousable. He is incoherent and unable to give history. His two sons and daughter were at the bedside. One of the sons reported low grade fever for 2 days of 99.6. There were no other reported complaints such as chest pain or shortness of breath. REVIEW OF SYSTEMS: Currently unable to elicit from patient because of his impaired mental status. PAST MEDICAL HISTORY: 1. Parkinson disease. 2. Type 2 diabetes. 3. CAD status post septal infarct. 4. Myocardial infarction (PR). 5. 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 6. Stroke. 7. Restless leg syndrome. 8. Lower extremity edema, chronic. PAST SURGICAL HISTORY: Cholecystectomy and hernia repair in the groin. FAMILY HISTORY: A son from lung cancer. He was a smoker. SOCIAL HISTORY: Patient smoked cigar in the past but not anymore. Alcohol he drinks rarely. No reported drug abuse. He is . 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 Currently a resident at [facility] [place]. ALLERGIES TO MEDICATION: CAPTOPRIL. His list of home medication includes: - acetaminophen/hydrocodone 325 mg/5 mg 1 tablet every 8 hours as needed for severe pain - Dulcolax 10 mg per rectum daily for constipation as needed - bisoprolol fumarate 2.5 mg by mouth twice a day - carbidopa/levodopa 25/100 mg 2 tablets at 8 a.m., 12 noon, 4 p.m. and 8 p.m. - Colace 100 mg twice a day - gabapentin 100 mg at nighttime - Milk of Magnesia 30 mL daily for constipation - mirtazapine (Remeron) 7.5 mg in the evening - sublingual nitro 0.4 mg as needed for chest pain - primidone 50 mg by mouth twice a day - ropinirole (Requip) 2 mg by mouth twice a day PHYSICAL EXAMINATION: VITAL SIGNS: Blood pressure 105/57. Pulse is 74. Respiratory rate 20. Oxygen saturation 98% on 2 liters of oxygen. Temperature 99.8 degrees Fahrenheit upon arrival. Repeat was 97.8 degrees Fahrenheit. GENERAL: Patient is lethargic but arousable. He is comfortable. HEENT: Pupils equal and reactive to light. Mucous membrane is moist. intact. Tonsils at midline as well as uvula. CARDIOVASCULAR SYSTEM: S1, S2 present with regular rate. RESPIRATORY SYSTEM: Decreased breath sounds at the bases secondary to poor respiratory effort. GENITOURINARY (): Positive Choi draining yellow urine. GASTROINTESTINAL (GI): Abdomen is soft, nontender, nondistended. Bowel sounds are normal. RECTAL EXAM: Deferred. MUSCULOSKELETAL SYSTEM: No pedal edema. Fingers are contracted. Poor strength in both lower and upper extremities. SKIN: Is warm, dry and intact. No notable rash. NEUROLOGY: Deferred due to patient's poor focus. At this point, he does have intentional tremors of both hands on observation. LABORATORIES: Hematology: White blood cell count is 5.8 thousand, hemoglobin 11, hematocrit 33, platelets 140. Chemistry: Sodium 143, potassium 5.7, chloride 110, bicarbonate 26, BUN 78, creatinine 5.02, glucose 88. Coagulopathy: INR 1.19, PT 16.2, PTT 32.7. Lactic acid 0.8. Troponin negative and less than 0.02. CK-MB normal at 0.65. ABG: pH of 7.44, pCO2 is 7.8, pO2 103, bicarbonate 25.1, oxygen saturation 97.8%. IMAGING STUDIES: Chest x-ray: Subtle bibasilar atelectasis. Renal ultrasound showed mild right-sided hydroureteronephrosis, chronic medical renal disease with 4 cm right lower pole renal cyst. EKG: Sinus rhythm with occasional SVC and old Q waves in V1/V2. ASSESSMENT: 82-year-old male with a history of lower extremity edema on Lasix presented with lethargy, decrease oral intake for 4 days. Labs revealed elevated creatinine and potassium. IMPRESSION: Includes acute respiratory failure secondary to dehydration, postobstructive uropathy. Possibly bladder neuropathy as well. Toxic encephalopathy secondary to electrolyte abnormality and hypokalemia as well as possible uremia. Mild thrombocytosis observed. History of diabetes with neuropathy. Blood sugar is controlled at this point. History of hypertension. Blood pressure controlled. Followed by a history of CAD status post myocardial infarction, stable. No complaint currently of her chest pain. Other medical problems such as Parkinson and stroke, restless leg syndrome. PLAN: Patient is admitted to medical/surgical floor. Lasix was held. He is continued on normal saline at 100 mL/hr. Choi left in place to monitor urine output. Pending urinary lytes osmolality cultures, blood cultures. Neurology evaluation requested of Dr. Cline on-call. The case was discussed with him. He will be seeing patient in the morning. Will followup lytes in a.m. as well. Patient's other chronic medications are resumed. Deep venous thrombosis (DVT) prophylaxis with subcu heparin.
[2017-03-13 05:58] LABS: BASO % 0.2 % (0.0-1.0); EOS # 0.2 K/mm3 (0.0-0.50); EOS % 3.2 % (0.0-3.0); LARGE UNSTAINED CELL # 0.1 K/mm3 (0.0-0.4); LARGE UNSTAINED CELL % 1.4 % (0.0-4.0); LYMPH % 19.9 % (24.0-44.0); MEAN CORPUSCULAR HGB CONC 32.3 g/dl (32.0-36.5); MEAN CORPUSCULAR VOLUME 92.8 fl (80.0-96.0); MONO # 0.3 K/mm3 (0.0-0.8); MONO % 6.1 % (0.0-5.0); NEUTROPHILS # 3.2 K/mm3 (1.8-7.7); NEUTROPHILS % 69.1 % (36.0-66.0); PLATELET COUNT, AUTOMATED 148 k/mm3 (150-450); RED CELL DISTRIBUTION WIDTH 14.4 % (11.5-14.5); WHITE BLOOD COUNT 4.6 K/mm3 (4.0-10.0)
[2017-03-13 06:00] VITALS: BP 122/64
[2017-03-13 06:18] LABS: CALCIUM LEVEL 8.3 MG/DL (8.8-10.2); CREATININE FOR GFR 3.67 MG/DL (0.70-1.30); GLOMERULAR FILTRATION RATE 16.9 (>35); MAGNESIUM LEVEL 2.9 MG/DL (1.8-2.4); POTASSIUM SERUM 4.7 MEQ/L (3.5-5.1)
--- NOTE | 2017-03-13 07:35 | ECGEPIP ---
Stationary ECG Study [facility] - ED Test Date: 2017-03-12 Pat Name: DARNELL NEWELL Department: Room: - Gender: M Infantryman: JAlin : 1935 Requested By: Matheus Donato Order Number: [id number] Reading MD: Adenike Davidson Measurements Intervals [place] Rate: 70 P: 13 OR: 130 QRS: -13 QRSD: 106 T: 66 QT: 408 QTc: 443 Interpretive Statements SINUS RHYTHM WITH OCCASIONAL SUPRAVENTRICULAR PREMATURE COMPLEXES SEPTAL MYOCARDIAL INFARCTION, OF INDETERMINATE AGE NSTTW ABNORMALITY DECREASED RATE 11/15/16 Electronically Signed On 03-13-2017 7:34:34 EDT by Adenike Davidson
[2017-03-13] MEDS ORDERED: NS 0.45% 1,000 ML IV SCH (09:30)
[2017-03-13] MEDS: cefTRIAXone SOD 1 GM in D5W MINI-BAG PLUS 50 ML IV SCH (10:31)
[2017-03-13] MEDS: rOPINIRole 1MG TAB PO SCH ×2 (10:32→20:52)
[2017-03-13] MEDS: SINEMET 25-100 MG TAB PO SCH ×4 (10:32→20:52)
[2017-03-13] MEDS: TAMSULOSIN 0.4 MG CAP PO SCH (10:32)
[2017-03-13] MEDS: PRIMIDONE 50 MG TAB PO SCH ×2 (10:32→20:51)
[2017-03-13] MEDS: BISOPROLOL FUM 2.5 MG PER 1/2TAB PO SCH ×2 (10:32→20:55)
[2017-03-13] MEDS: NORCO, ANEXSIA 5/325MG TABLET (HYDROcodone/ACETAMINOPHEN) PO SCH ×2 (10:34→20:54)
[2017-03-13] MEDS: DOCUSATE SODIUM 100 MG CAP PO SCH ×2 (10:34→21:00)
[2017-03-13] MEDS: HEPARIN SOD (PORCINE) 5000 UNITS/ML VIAL SC SCH ×2 (10:35→20:56)
[2017-03-13] MEDS ORDERED: D5W 250ML BAG IV ONE (11:00)
[2017-03-13] MEDS ORDERED: D5W 1000 ML IV ONE (11:00)
--- NOTE | 2017-03-13 12:11 | IPNPDOC ---
Text Note Date of Service The patient was seen on 03/13/17. NOTE Subjective: She feels much better today. Tolerated breakfast. Is more alert and awake per family. Objective: Vitals: (see below) General: No acute distress, laying comfortably in bed. HEENT: Moist mucous membranes. Neck: No JVD or lymphadenopathy Cardiac: RRR, No murmurs Pulm: Clear to auscultation b/l. No wheezing, rhonchi Abd: NT/ND + BS Ext: Trace edema bilateral lower extremities. No cyanosis Alert and oriented 3. Moving all extremities. Following commands. Labs (see below) Images: CXR 03/12/17 Impression: Subtle bibasilar atelectasis similar to prior examination. Renal u/s 03/12/17 Impression: 1. Chronic medical renal disease with 4 cm right lower pole renal cyst similar to prior examination. 2. Mild right-sided hydroureteronephrosis suggested. Assessment/Plan 1. Acute renal failure secondary to prerenal as well as obstructive uropathy. Patient had also been on Lasix which is being held. Patient's been having a decreased appetite and is been increasingly lethargic over the past 4 days prior to admission. Questionable whether patient has had prior prostate issues in the past. Patient has been started on Flomax. Renal function is improving with IV fluids. Appreciate nephrology input. Choi catheter in place. We'll need outpatient follow-up with urology. 2. Metabolic encephalopathy secondary to acute renal failure- improved. 3. Hypernatremia- secondary to dehydration improved with IV fluids. 4. Hyperkalemia- improved 5. Abnormal urinalysis- patient with too numerous to count WBCs as well as RBCs - question of patient had a traumatic Choi catheter placement. We'll place the patient on Rocephin pending cultures. Afebrile. 6. History of Parkinson's disease- continue Sinemet 7. History of CAD status post septal infarction- continue home meds 8. History of basal ganglia infarcts and subarachnoid hemorrhage 9. Restless sleep syndrome- continue home meds 10. Chronic peripheral neuropathy- continue home meds DVT prophylaxis- heparin subcutaneous VS,Fishbone, I+O VS, Fishbone, I+O Laboratory Tests 03/12/17 14:43 Red Blood Count 3.57 L, Mean Corpuscular Volume 91.4, Mean Corpuscular Hemoglobin 30.0, Mean Corpuscular Hemoglobin Concent 32.8, Red Cell Distribution Width 14.5, Neutrophils (%) (Auto) 76.5 H, Lymphocytes (%) (Auto) 16.1 L, Monocytes (%) (Auto) 4.8, Eosinophils (%) (Auto) 1.5, Basophils (%) ( Auto) 0.2, Neutrophils # (Auto) 4.4, Lymphocytes # (Auto) 1.0 L, Monocytes # ( Auto) 0.3, Eosinophils # (Auto) 0.1, Basophils # (Auto) 0.0, Calcium Level 7.9 L , Total Creatine Kinase 152 03/13/17 05:34 Red Blood Count 3.61 L, Mean Corpuscular Volume 92.8, Mean Corpuscular Hemoglobin 30.0, Mean Corpuscular Hemoglobin Concent 32.3, Red Cell Distribution Width 14.4, Neutrophils (%) (Auto) 69.1 H, Lymphocytes (%) (Auto) 19.9 L, Monocytes (%) (Auto) 6.1 H, Eosinophils (%) (Auto) 3.2 H, Basophils (%) (Auto) 0.2, Neutrophils # (Auto) 3.2, Lymphocytes # (Auto) 1.0 L, Monocytes # ( Auto) 0.3, Eosinophils # (Auto) 0.2, Basophils # (Auto) 0.0, Calcium Level 8.3 L Vital Signs Date Time Temp Pulse Resp B/P (MAP) Pulse Ox O2 Delivery O2 Flow Rate FiO2 03/13/17 11:04 18 Nasal Cannula 2.0 03/13/17 10:32 73 122/64 03/13/17 06:00 97.6 100 I&O- Last 24 Hours up to 6 AM 03/13/17 06:00 Intake Total 1920 ml Output Total 4775 ml Balance -2855 ml ALEXIS MOHAN MD Mar 13, 2017 12:11
[2017-03-13] MEDS ORDERED: VARIBAR PUDDING 40% w/v 230ML TUBE As Ordered ONE (12:29)
[2017-03-13] MEDS ORDERED: E-Z-PAQUE 96% w/w SUSP 176GM BTL As Ordered ONE (12:29)
[2017-03-13] MEDS ORDERED: VARIBAR NECTAR 40% w/v 240ML SUSP BTL As Ordered ONE (12:29)
[2017-03-13 12:41] LABS: PERCENT SATURATION 22.9 % (19.7-37.4)
[2017-03-13] MEDS: D5W/0.45% SODIUM CHLORIDE 1,000 ML IV SCH ×2 (13:18→22:55)
[2017-03-13 14:00] VITALS: BP 112/57
--- NOTE | 2017-03-13 15:25 | REP ---
COOKIE SWALLOW: The procedure was performed under the direct supervision of Dr. Bar. The procedure was performed with Cynthia East from speech pathology present. 5 mL aliquots of nectar, pudding, solid, and thin-consistency barium was administered. With thin consistency barium, there is aspiration. A detailed report of this examination will be provided by speech pathology. 1 minute and 10 seconds of fluoroscopy time was utilized for this procedure. Reviewed by ABEL Mathias 03/14/2017 09:31 AEdited and Signed by Tyler Bar MD 03/14/2017 03:37 P
[2017-03-13] MEDS: GABAPENTIN 100 MG CAP PO SCH (20:51)
[2017-03-13] MEDS: MIRTAZAPINE 7.5MG PER 1/2 TABLET PO SCH (20:53)
--- NOTE | 2017-03-13 21:20 | CR ---
DATE OF CONSULTATION: 03/13/2017 REQUESTING PHYSICIAN: Dr. Osito Adhikari CONSULTING PHYSICIAN: Dr. Cline REASON FOR CONSULTATION: Acute renal failure and hypernatremia. CHIEF COMPLAINT: The patient was brought in from [facility] yesterday because of confusion, altered mental status and decreased oral intake. HISTORY OF PRESENT ILLNESS: No history was obtained from the family members and from patient's chart. The patient is unable to provide any reliable history. Mr. Curt Ledesma is an 82-year-old male with a past medical history or Parkinson's disease, chronically bedridden, history of peripheral neuropathy, type 2 diabetes, multiple other comorbidities, as mentioned below. The patient is a resident at [facility]. He was getting more and more lethargic, confused with altered mental status and decreased oral intake for almost one week. The patient got the laboratories done at the skilled nursing and it showed a creatinine of 5.7. He was sent to the emergency room for further evaluation. The patient got a Choi catheter placed and almost 2.7 liters of urine came out. The patient was given IV fluid hydration. His Lasix was held. Nephrology service was called for further help in the management of acute renal failure and hyperkalemia. His potassium was 5.7 on arrival. When the patient was examined by me today in the morning, as reported by family, he is much more coherent today as compared with yesterday. He is able to answer a few questions. He is oriented times one at this time, but there is no apparent distress. PAST MEDICAL HISTORY: 1. Parkinson's disease. 2. Diabetes mellitus type 2. 3. Peripheral neuropathy. 4. Inability to walk. 5. Coronary artery disease. 6. History of myocardial infarction in the past. 7. History of CVA. 8. Restless leg syndrome. PAST SURGICAL HISTORY: Status post cholecystectomy, status post inguinal hernia repair, and status post AICD/pacemaker insertion. ALLERGIES: The patient is allergic to CAPTOPRIL. FAMILY HISTORY: No significant family history of end stage renal disease requiring hemodialysis. The patient's son of lung cancer in the past. SOCIAL HISTORY: The patient quit smoking many years ago. He rarely drinks alcohol. There is no history of illicit drug abuse. 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. HOME MEDICATIONS: The patient's medications before transfer to the hospital included: - Percocet as needed - Dulcolax as needed - bisoprolol 2.5 mg twice a day - Sinemet two tablets four times a day - Colace 100 mg twice a day - gabapentin 100 mg at night - milk of magnesia 30 mL daily - mirtazapine 7.5 mg in the evening - nitroglycerin sublingual as needed - primidone 50 mg twice a day - ropinirole 2 mg twice a day REVIEW OF SYSTEMS: CONSTITUTIONAL: The patient denies any fever, chills or rigors. EYES: He denies any blurry vision or double vision. ENT: He denies any dysphagia, but family reports that he has been taking thickened liquids. He denies any ear discharge. CARDIOVASCULAR: The patient reports a history of congestive heart failure (CHF) and myocardial infarction in the past. Otherwise, he denies any chest pain or palpitations. RESPIRATORY: He denies any shortness of breath at this time. GASTROINTESTINAL: Decreased oral intake and decreased appetite recently. Otherwise, no constipation or diarrhea. GENITOURINARY: Urinary retention. The patient has a Choi catheter at this time. MUSCULOSKELETAL: The patient has inability to walk. NEUROLOGIC: The patient has a history of Parkinson's disease and peripheral neuropathy. SKIN: No rashes or ulcers. HEMATOLOGY/ONCOLOGY: No history of anemia or easy bruising reported by patient. The rest of the review of systems is negative. PHYSICAL EXAMINATION: GENERAL: The patient is awake, alert, and oriented times one, lying in bed. No apparent distress. VITAL SIGNS: Temperature 97.6 degrees Fahrenheit. Blood pressure is 122/64, pulse is 73, respiratory rate of 14, saturating 100% on nasal cannula at 2 liters. Intake and output: Urine output recorded as 4.3 liters yesterday and 975 mL so far today since overnight. HEAD/NECK EXAM: Extraocular muscles intact. Pupils are equal, round and reactive to light. Mucous membranes are very dry. NECK: Supple. There is no jugular venous distention (JVD). CARDIOVASCULAR: S1, S2. Regular rate. No murmur, rub or gallop. The patient has a left sided AICD/pacemaker. RESPIRATORY: Chest is clear to auscultation bilaterally. Bilateral equal air entry. No rales or rhonchi. ABDOMEN: Soft. Positive bowel sounds. Nontender. No ascites. No organomegaly. GENITOURINARY: The patient has an indwelling Choi catheter at this time. Urine in the bag is dark. Otherwise, no debris was seen. MUSCULOSKELETAL: Pulses in the extremities are 2+. The patient has trace edema of the bilateral lower extremities. NEUROLOGIC: The patient has parkinsonism. Otherwise, he is able to follow commands and move extremities. SKIN: No rashes or ulcers. PSYCHIATRIC: Normal mood and affect. LYMPH NODES: No cervical, axillary or inguinal lymphadenopathy. LABORATORY REVIEW: Complete blood count (CBC) showed a WBC of 4.6, hemoglobin 10.8, platelets are 148. INR 1.19. Urinalysis showed that it was red and cloudy with 2+ protein and 3+ blood, 3+ leukocyte esterase, too numerous to count WBC and RBCs. Random osmolality was 430, random creatinine was 68, total protein was 141, random sodium was 71, random potassium was 34.4. ABG showed a pH of 7.4, PCO2 of 37, PO2 of 103, bicarbonate 25. Basic metabolic panel (BMP) done this morning showed sodium 148, potassium 4.7, chloride 113, bicarbonate 30, BUN 64, creatinine 3.6, it was 5.2 yesterday. GFR 16.9, calcium 8.3, magnesium 2.9. Microbiology: Urine culture and blood culture are pending. IMAGING: Chest x-ray done yesterday showed bibasilar atelectasis, otherwise no acute infiltrate. Renal ultrasound done yesterday showed chronic medical renal disease with 4 cm right lower pole renal cyst. Mild right sided hydroureteronephrosis. Current inpatient medications: The patient's medications were all reviewed by me. He is currently on Rocephin 1 gram IV every 24 hours. I started the patient on D5 half normal saline at 100 mL an hour. The patient was given a bolus of D5W 250 mL IV times one dose. He is on Tylenol as needed, [place] as needed, DuoNeb as needed, Dulcolax suppository as needed, bisoprolol 2.5 mg by mouth twice a day, Sinemet two tablets by mouth four times a day, Colace 100 mg twice a day, gabapentin 100 mg at night, heparin subcutaneous every 12 hours, milk of magnesia as needed, Remeron 7.5 mg by mouth at night, primidone 50 mg twice a day, Requip 2 mg by mouth twice a day, and Flomax 0.4 mg by mouth daily. ASSESSMENT: 82-year-old male with a past medical history of congestive heart failure (CHF), almost normal renal function with a baseline creatinine of around 1, peripheral neuropathy, Parkinson's disease, admitted this time because of metabolic encephalopathy secondary to acute renal failure. PLAN: 1. Acute renal failure. It is most likely postobstructive uropathy. The patient has about 3 liters of urine in the bladder. He has a Choi catheter at this time. Continue the Choi at this time. I have started the patient on half normal saline for postobstructive diuresis. Continue IV fluids at this time. 2. Hyponatremia. Hyponatremia is secondary to postobstructive diuresis and inability of the patient to take liquids orally because of altered mental status and decreased oral intake recently because of parkinsonism. I have given the patient a bolus of D5W 250 mL IV and continued IV half normal saline at this time. 3. Hyperkalemia. Hyperkalemia was secondary to acute renal failure. Potassium level is already improving from 5.7 to 4.7 today. 4. Anemia secondary to chronic kidney disease. Hemoglobin is 10.8, which is acceptable at this time. I will check the patient's iron stores. 5. Obstructive uropathy. The patient most likely has neurogenic bladder. Continue Choi at this time. The patient has been started on Flomax 0.4 mg by mouth daily. He will need evaluation by urology for voiding trial once the renal function improves. 6. Hematuria. It is most likely secondary to sudden decompression of the bladder. Continue the IV fluid hydration. Hematuria is expected to improve over the next one or two days. There is no need to do the 24-hour protein at this time in acute renal failure and hematuria. 7. History of congestive heart failure (CHF). I reviewed the patient's echocardiogram from November 2016. His left ventricular ejection fraction is almost normal at around 45%, but he did have a moderate to severe pulmonary hypertension with moderately dilated right heart consistent with severe pulmonary hypertension and right heart failure. At this time, I will hold the diuretics because the patient is in renal failure and having postobstructive diuresis. I am actually giving the patient gentle hydration. I will monitor the patient daily for any signs of fluid overload. 8. Parkinsonism. Continue home dose of Sinemet at this time. 9. Metabolic encephalopathy and decreased oral intake. The patient's mental status is significantly improving, as reported by family. The patient needs a speech and swallow evaluation and then he will be started on diet as recommended by speech therapist. 10. Diabetes mellitus type 2. The patient was on glipizide before being admitted. He was actually hypoglycemic because of decreased oral intake. Continue to hold the sulfanuria at this time. Insulin sliding scale as needed and I have actually added D5 to IV fluids because of the patient's hypoglycemia. Thank you for involving us in the care of this patient. We shall be happy to follow the patient along with you tomorrow morning. Plan of care was discussed with the hospitalist, Dr. Osito Adhikari.
[2017-03-13 22:00] VITALS: BP 155/70
[2017-03-14 06:00] VITALS: BP 153/78
[2017-03-14 06:00] LABS: BASO % 0.4 % (0.0-1.0); EOS # 0.3 K/mm3 (0.0-0.50); EOS % 5.9 % (0.0-3.0); LARGE UNSTAINED CELL # 0.1 K/mm3 (0.0-0.4); LARGE UNSTAINED CELL % 1.5 % (0.0-4.0); LYMPH # 0.9 K/mm3 (1.5-4.5); LYMPH % 19.3 % (24.0-44.0); MEAN CORPUSCULAR HEMOGLOBIN 30.2 pg (27.0-33.0); MEAN CORPUSCULAR HGB CONC 32.7 g/dl (32.0-36.5); MEAN CORPUSCULAR VOLUME 92.3 fl (80.0-96.0); MONO # 0.2 K/mm3 (0.0-0.8); MONO % 4.9 % (0.0-5.0); NEUTROPHILS # 3.1 K/mm3 (1.8-7.7); NEUTROPHILS % 68.1 % (36.0-66.0); PLATELET COUNT, AUTOMATED 157 k/mm3 (150-450); RED CELL DISTRIBUTION WIDTH 14.2 % (11.5-14.5); WHITE BLOOD COUNT 4.5 K/mm3 (4.0-10.0)
[2017-03-14 06:15] LABS: CALCIUM LEVEL 8.3 MG/DL (8.8-10.2); CREATININE FOR GFR 2.12 MG/DL (0.70-1.30); GLOMERULAR FILTRATION RATE 31.8 (>35); MAGNESIUM LEVEL 2.5 MG/DL (1.8-2.4); POTASSIUM SERUM 4.4 MEQ/L (3.5-5.1)
[2017-03-14] MEDS: D5W/0.45% SODIUM CHLORIDE 1,000 ML IV SCH (06:52)
[2017-03-14] MEDS: SINEMET 25-100 MG TAB PO SCH ×4 (08:59→20:13)
[2017-03-14] MEDS: NORCO, ANEXSIA 5/325MG TABLET (HYDROcodone/ACETAMINOPHEN) PO SCH ×2 (09:00→20:10)
[2017-03-14] MEDS: HumaLOG INSULIN (NovoLOG) PER UNIT SC SCH ×4 (09:01→21:00)
[2017-03-14] MEDS: PRIMIDONE 50 MG TAB PO SCH ×2 (09:28→20:09)
[2017-03-14] MEDS: TAMSULOSIN 0.4 MG CAP PO SCH (09:28)
[2017-03-14] MEDS: DOCUSATE SODIUM 100 MG CAP PO SCH ×2 (09:28→20:08)
[2017-03-14] MEDS: rOPINIRole 1MG TAB PO SCH ×2 (09:28→20:08)
[2017-03-14] MEDS: BISOPROLOL FUM 2.5 MG PER 1/2TAB PO SCH ×2 (09:28→20:13)
[2017-03-14] MEDS: HEPARIN SOD (PORCINE) 5000 UNITS/ML VIAL SC SCH ×2 (09:29→20:08)
[2017-03-14 10:01] VITALS: BP 150/65
[2017-03-14] MEDS: cefTRIAXone SOD 1 GM in D5W MINI-BAG PLUS 50 ML IV SCH (11:01)
[2017-03-14] MEDS: NS 0.45% 1,000 ML IV SCH ×2 (11:56→20:14)
--- NOTE | 2017-03-14 13:54 | IPNPDOC ---
Text Note Date of Service The patient was seen on 03/14/17. NOTE Subjective: Pt denies any acute changes overnight. Feels well. No N/V/Abd pain. Objective: Vitals: (see below) General: No acute distress, laying comfortably in bed. HEENT: Moist mucous membranes. Neck: No JVD or lymphadenopathy Cardiac: RRR, No murmurs Pulm: Clear to auscultation b/l. No wheezing, rhonchi Abd: NT/ND + BS Ext: Trace edema bilateral lower extremities. No cyanosis Alert and oriented 3. Moving all extremities. Following commands. Labs (see below) Images: CXR 03/12/17 Impression: Subtle bibasilar atelectasis similar to prior examination. Renal u/s 03/12/17 Impression: 1. Chronic medical renal disease with 4 cm right lower pole renal cyst similar to prior examination. 2. Mild right-sided hydroureteronephrosis suggested. Assessment/Plan 1. Acute renal failure secondary to prerenal as well as obstructive uropathy. Patient had also been on Lasix which is being held. Patient's been having a decreased appetite and is been increasingly lethargic over the past 4 days prior to admission. Questionable whether patient has had prior prostate issues in the past. Patient has been started on Flomax. Renal function is improving with IV fluids. Appreciate nephrology input. Choi catheter in place. We'll need outpatient follow-up with urology. 2. Metabolic encephalopathy secondary to acute renal failure- improved. 3. Hypernatremia- secondary to dehydration improved with IV fluids. Improved. 4. Hyperkalemia- improved 5. Abnormal urinalysis- patient with too numerous to count WBCs as well as RBCs - question of patient had a traumatic Choi catheter placement.Urine cx pending. On Rocephin. Per nurse there was a problem with the Choi catheter with urinary retention overnight, and the catheter will be replaced today. 6. History of Parkinson's disease- continue Sinemet 7. History of CAD status post septal infarction- continue home meds 8. History of basal ganglia infarcts and subarachnoid hemorrhage 9. Restless sleep syndrome- continue home meds 10. Chronic peripheral neuropathy- continue home meds DVT prophylaxis- heparin subcutaneous Prognosis guarded VS,Fishbone, I+O VS, Fishbone, I+O Laboratory Tests 03/14/17 05:33 Red Blood Count 3.59 L, Mean Corpuscular Volume 92.3, Mean Corpuscular Hemoglobin 30.2, Mean Corpuscular Hemoglobin Concent 32.7, Red Cell Distribution Width 14.2, Neutrophils (%) (Auto) 68.1 H, Lymphocytes (%) (Auto) 19.3 L, Monocytes (%) (Auto) 4.9, Eosinophils (%) (Auto) 5.9 H, Basophils (%) ( Auto) 0.4, Neutrophils # (Auto) 3.1, Lymphocytes # (Auto) 0.9 L, Monocytes # ( Auto) 0.2, Eosinophils # (Auto) 0.3, Basophils # (Auto) 0.0, Calcium Level 8.3 L Vital Signs Date Time Temp Pulse Resp B/P (MAP) Pulse Ox O2 Delivery O2 Flow Rate FiO2 03/14/17 13:02 Room Air 03/14/17 10:01 99.7 79 14 150/65 (93) 100 2.0 I&O- Last 24 Hours up to 6 AM 03/14/17 06:00 Intake Total 2480 ml Output Total 750 ml Balance 1730 ml ALEXIS MOHAN MD Mar 14, 2017 13:54
--- NOTE | 2017-03-14 14:00 | IPN ---
DATE: 03/14/2017 SUBJECTIVE: The patient was seen and examined at the bedside today. He was sitting upright today. Last 24 hour events were noted. There was some blockage in the catheter overnight. The catheter was repositioned and flushed and about 1600 mL of urine came out. The patient is otherwise hemodynamically stable. His creatinine is trending down. He is symptomatically feeling better. REVIEW OF SYSTEMS: The patient denies any fever, chills, rigors, headache, nausea, vomiting, chest pain, shortness of breath. He denies any pain in abdomen, constipation or diarrhea. The patient got the swallow evaluation done yesterday and he aspirates the thin liquids so he has been placed on nectar thick liquids. The rest of the review of systems is negative. OBJECTIVE: VITAL SIGNS: Temperature 99.7 degrees Fahrenheit. Blood pressure 150/65. Pulse 79. Respiratory rate 14. Saturating 100% on nasal cannula at 2 liters. INTAKE AND OUTPUT: Urine output recorded as 1225 mL yesterday, 1625 mL so far today since overnight. Weight on the bed scale is 83 kg. PHYSICAL EXAMINATION: GENERAL: The patient is awake, alert, oriented times two, sitting up in bed in no apparent distress. HEAD AND NECK EXAM: Extraocular muscles intact. Pupils equally round and reactive to light. Mucous membranes are moist today. Neck is supple. There is no jugular venous distention (JVD). CARDIOVASCULAR: S1, S2. Regular rate. No murmur, rub or gallop. The patient has a left sided AICD/pacemaker. RESPIRATORY: Chest is clear to auscultation bilaterally. Bilateral equal air entry. No rales or rhonchi. ABDOMEN: Soft. Positive bowel sounds. Nontender. No ascites. No organomegaly. GENITOURINARY: The patient has an indwelling Choi catheter at this time. Urine in the bag is blood tinged. Otherwise no debris. MUSCULOSKELETAL: Pulses are 2+ in the extremities. There is very trace edema of the bilateral lower extremities. 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 He is able to follow commands. He is oriented times two at this time. LAB REVIEW: CBC showed a WBC of 4.5, hemoglobin 10.8, and platelets of 157. Urine total protein is 1 gram in 24 hours. BMP showed sodium 147, potassium 4.4, chloride 113, bicarbonate 30, BUN 44, creatinine 2.1 and it was 3.6 yesterday, calcium 8.3. Iron level was 30, TIBC 131, transferrin saturation 22.9 and ferritin is 226. Microbiology: Urine culture is pending. Blood culture is negative so far. IMAGING: Cookie swallow modified barium swallow was done yesterday which showed aspiration with a thin consistency barium. CURRENT INPATIENT MEDICATIONS: Patient's medications were all reviewed by me. I have decreased his IV fluid rate to 1/2 normal saline at 75 mL/hr. ASSESSMENT: 82-year-old male with past medical history of congestive heart failure, almost normal renal function with a baseline creatinine of 1, peripheral neuropathy, and Parkinson's disease admitted at this time because of metabolic encephalopathy secondary to acute renal failure. PLAN: 1. Acute renal failure. It is post obstructive uropathy. The patient got a Choi catheter placed on admission; however, there was a problem with the catheter overnight as well. It was blocked. It needs to be flushed and repositioned. The patient had 1600 mL of urine output instantly. I am going to get another Choi catheter placed. The old catheter will be removed. Continue the IV 1/2 normal saline; however, I am going to decrease the IV fluid rate to 75 mL/hr because of history of congestive heart failure. 2. Hypernatremia. Hypernatremia is secondary to post obstructive diuresis. Continue 1/2 normal saline. Continue to encourage oral intake as well. 3. Obstructive uropathy. Continue the Choi catheter at this time. Continue Flomax 0.4 mg by mouth daily. The patient will be evaluated by urology as well. 4. Hematuria. The patient most likely has hematuria from the bladder secondary to sudden decompression; however, it is possible that it might be coming from the prostatic urethra as well. Hemoglobin is stable at 10.8 at this time. Hematuria is expected to improve over the next one or two days. 5. Metabolic encephalopathy and decreased oral intake. The patient's mental status is improving. The patient got the barium swallow done yesterday. He aspirates the thin liquids. He is currently on thickened liquid and nectar thick liquids which he is tolerating at this time. 6. History of congestive heart failure. The patient's volume status is optimized at this time. He is having post obstructive diuresis. I would continue the gentle hydration at 75 mL/hr. The patient will be evaluated daily for his volume status. 7. Diabetes mellitus type 2. The patient's oral hypoglycemics are on hold because of hypoglycemia on admission. Continue insulin sliding scale as needed.
[2017-03-14 14:49] VITALS: BP 119/58
[2017-03-14] MEDS: MIRTAZAPINE 7.5MG PER 1/2 TABLET PO SCH (20:08)
[2017-03-14] MEDS: GABAPENTIN 100 MG CAP PO SCH (20:10)
[2017-03-14 22:00] VITALS: BP 141/63
[2017-03-15] MEDS: ACETAMINOPHEN 325 MG TAB PO PRN ×2 (04:09→18:47)
[2017-03-15 06:00] VITALS: BP 124/65
[2017-03-15 06:11] LABS: BASO % 0.4 % (0.0-1.0); EOS # 0.2 K/mm3 (0.0-0.50); EOS % 5.5 % (0.0-3.0); LARGE UNSTAINED CELL % 1.2 % (0.0-4.0); LYMPH # 0.9 K/mm3 (1.5-4.5); LYMPH % 23.9 % (24.0-44.0); MEAN CORPUSCULAR HEMOGLOBIN 30.6 pg (27.0-33.0); MEAN CORPUSCULAR HGB CONC 33.5 g/dl (32.0-36.5); MEAN CORPUSCULAR VOLUME 91.1 fl (80.0-96.0); MONO # 0.2 K/mm3 (0.0-0.8); MONO % 5.2 % (0.0-5.0); NEUTROPHILS # 2.2 K/mm3 (1.8-7.7); NEUTROPHILS % 63.8 % (36.0-66.0); PLATELET COUNT, AUTOMATED 145 k/mm3 (150-450); RED CELL DISTRIBUTION WIDTH 14.2 % (11.5-14.5); WHITE BLOOD COUNT 3.4 K/mm3 (4.0-10.0)
[2017-03-15 07:05] LABS: CALCIUM LEVEL 8.1 MG/DL (8.8-10.2); CREATININE FOR GFR 1.47 MG/DL (0.70-1.30); GLOMERULAR FILTRATION RATE 48.6 (>35); MAGNESIUM LEVEL 2.1 MG/DL (1.8-2.4); POTASSIUM SERUM 3.9 MEQ/L (3.5-5.1)
[2017-03-15] MEDS: HumaLOG INSULIN (NovoLOG) PER UNIT SC SCH ×4 (08:58→20:52)
[2017-03-15] MEDS: BISOPROLOL FUM 2.5 MG PER 1/2TAB PO SCH ×2 (08:59→21:03)
[2017-03-15] MEDS: DOCUSATE SODIUM 100 MG CAP PO SCH ×2 (08:59→20:59)
[2017-03-15] MEDS: HEPARIN SOD (PORCINE) 5000 UNITS/ML VIAL SC SCH ×2 (08:59→20:59)
[2017-03-15] MEDS: SINEMET 25-100 MG TAB PO SCH ×4 (08:59→20:58)
[2017-03-15] MEDS: TAMSULOSIN 0.4 MG CAP PO SCH (08:59)
[2017-03-15] MEDS: FERROUS SULFATE 325MG TAB PO SCH ×3 (08:59→20:59)
[2017-03-15] MEDS: PRIMIDONE 50 MG TAB PO SCH ×2 (08:59→20:59)
[2017-03-15] MEDS: NORCO, ANEXSIA 5/325MG TABLET (HYDROcodone/ACETAMINOPHEN) PO SCH ×2 (09:00→20:58)
[2017-03-15] MEDS: rOPINIRole 1MG TAB PO SCH ×2 (09:08→20:59)
--- NOTE | 2017-03-15 10:23 | REP ---
Clinical: Altered mental status. Comparison: 11/13/2016 . Findings: Age-related atrophy and microvascular ischemic changes are appreciated. The ventricles and sulci are symmetric. Mejia-white differentiation is maintained. There is no evidence for acute intracranial hemorrhage, mass/mass effect, pathology or infarction. No extra-axial fluid collection. Calvarium is intact. Paranasal sinuses and mastoid air cells are clear. Impression: Age related atrophy and microvascular ischemic changes. No acute intracranial hemorrhage, infarction, or mass/mass effect. Signed by Werner Jack MD 03/15/2017 10:14 A
[2017-03-15] MEDS: KCL 20MEQ IN D5W 1000ML 1,000 ML IV SCH (12:15)
[2017-03-15] MEDS: cefTRIAXone SOD 1 GM in D5W MINI-BAG PLUS 50 ML IV SCH (12:15)
[2017-03-15 14:00] VITALS: BP 134/68
--- NOTE | 2017-03-15 14:43 | IPNPDOC ---
Text Note Date of Service The patient was seen on 03/15/17. NOTE Subjective: Pt denies any acute changes overnight. No N/V abd pain. Mentation improved. Objective: Vitals: (see below) General: No acute distress, laying comfortably in bed. HEENT: Moist mucous membranes. Neck: No JVD or lymphadenopathy Cardiac: RRR, No murmurs Pulm: Clear to auscultation b/l. No wheezing, rhonchi Abd: NT/ND + BS Ext: Trace edema bilateral lower extremities. No cyanosis Alert and oriented 3. Moving all extremities. Following commands. Labs (see below) Images: CXR 03/12/17 Impression: Subtle bibasilar atelectasis similar to prior examination. Renal u/s 03/12/17 Impression: 1. Chronic medical renal disease with 4 cm right lower pole renal cyst similar to prior examination. 2. Mild right-sided hydroureteronephrosis suggested. Assessment/Plan 1. Acute renal failure secondary to prerenal as well as obstructive uropathy. Patient had also been on Lasix which is being held. Patient's been having a decreased appetite and is been increasingly lethargic over the past 4 days prior to admission. Questionable whether patient has had prior prostate issues in the past. Patient has been started on Flomax. Renal function is improving with IV fluids. Appreciate nephrology input. Choi catheter in place. We'll need outpatient follow-up with urology. 2. Metabolic encephalopathy secondary to acute renal failure- improved. 3. Hypernatremia- secondary to dehydration improved with IV fluids. Improved. 4. Hyperkalemia- improved 5. Abnormal urinalysis- patient with too numerous to count WBCs as well as RBCs - question of patient had a traumatic Choi catheter placement.Urine cx with Aaerococcus urinae. On Rocephin. 6. History of Parkinson's disease- continue Sinemet 7. History of CAD status post septal infarction- continue home meds 8. History of basal ganglia infarcts and subarachnoid hemorrhage 9. Restless sleep syndrome- continue home meds 10. Chronic peripheral neuropathy- continue home meds DVT prophylaxis- heparin subcutaneous Prognosis guarded Plan to d/c when cleared by neprho. VS,Fishbone, I+O VS, Fishbone, I+O Laboratory Tests 03/15/17 05:24 Red Blood Count 3.25 L, Mean Corpuscular Volume 91.1, Mean Corpuscular Hemoglobin 30.6, Mean Corpuscular Hemoglobin Concent 33.5, Red Cell Distribution Width 14.2, Neutrophils (%) (Auto) 63.8, Lymphocytes (%) (Auto) 23.9 L, Monocytes (%) (Auto) 5.2 H, Eosinophils (%) (Auto) 5.5 H, Basophils (%) (Auto) 0.4, Neutrophils # (Auto) 2.2, Lymphocytes # (Auto) 0.9 L, Monocytes # ( Auto) 0.2, Eosinophils # (Auto) 0.2, Basophils # (Auto) 0.0, Calcium Level 8.1 L Vital Signs Date Time Temp Pulse Resp B/P (MAP) Pulse Ox O2 Delivery O2 Flow Rate FiO2 03/15/17 10:44 Room Air 03/15/17 09:52 18 03/15/17 08:59 82 137/65 03/15/17 06:00 98.9 89 03/14/17 14:49 2.0 I&O- Last 24 Hours up to 6 AM 03/15/17 06:00 Intake Total 3923 ml Output Total 3600 ml Balance 323 ml ALEXIS MOHAN MD Mar 15, 2017 14:43
[2017-03-15] MEDS: GABAPENTIN 100 MG CAP PO SCH (20:58)
[2017-03-15] MEDS: MIRTAZAPINE 7.5MG PER 1/2 TABLET PO SCH (20:59)
[2017-03-15 22:00] VITALS: BP 140/68
[2017-03-16] MEDS: KCL 20MEQ IN D5W 1000ML 1,000 ML IV SCH (01:13)
--- NOTE | 2017-03-16 01:30 | IPN ---
DATE OF SERVICE: 03/15/2017 SUBJECTIVE: Patient was seen and examined at the bedside today in the morning. He was getting ready to go for CT scan because family reported that he was getting more confused. Otherwise, his renal function is improving. Patient is afebrile and hemodynamically stable at this time. REVIEW OF SYSTEMS: Patient denies any fever, chills, rigors, headache, nausea, vomiting, chest pain, shortness of breath, pain abdomen, constipation or diarrhea. Rest of review of systems is negative. OBJECTIVE: VITAL SIGNS: When I saw the patient this morning, his temperature was 98.9 degrees Fahrenheit. Blood pressure 124/65. Pulse is 77. Respiratory rate of 16. Saturating 89% on room air. INTAKE AND OUTPUT: Urine output recorded as 3100 mL yesterday, 1 liter so far today since overnight. Weight on the bed scale is 79.1 kg. PHYSICAL EXAMINATION: GENERAL: Patient is awake, alert, oriented times two, lying in bed in no apparent distress. HEAD AND NECK EXAM: Extraocular muscles intact. Pupils equally round and reactive to light. Mucous membranes are moist. Neck is supple. There is no jugular venous distention (JVD). CARDIOVASCULAR: S1, S2. Regular rate. No murmur, rub or gallop. RESPIRATORY: Chest is clear to auscultation bilaterally. Bilateral equal air entry. No rales or rhonchi. ABDOMEN: Soft. Positive bowel sounds. Nontender. No ascites. No organomegaly. GENITOURINARY: Patient has an indwelling Choi catheter. Urine is getting clear now. MUSCULOSKELETAL: Pulses are 2+ in the extremities. He has very trace lower extremity edema. CENTRAL NERVOUS SYSTEM (SHIRT BANDER): The patient has parkinsonism. He is able to follow commands otherwise. He is oriented times two. LABORATORY REVIEW: CBC showed a WBC of 3.4, hemoglobin 9.9, and platelets are 145. BMP showed sodium 147, potassium 3.9, chloride 114, bicarbonate 25, BUN 28, creatinine 1.4, GFR is 48.6, magnesium is 2.1. CURRENT INPATIENT MEDICATIONS: Patient's medications were all reviewed by me. He continues to be on intravenous (IV) ceftriaxone. I have stopped his IV half-normal saline. I have switched him to D5W plus 20 mEq of potassium chloride (KCl) at 75 mL/h. There is no other change in the medications today as compared with yesterday. ASSESSMENT: 82-year-old male with past medical history of congestive heart failure, baseline creatinine of 1, peripheral neuropathy, Parkinson's disease, admitted this time because of metabolic encephalopathy secondary to acute renal failure. PLAN: 1. Acute renal failure. It was postobstructive uropathy. Patient got the Choi catheter placed. He is making good amount of urine. Renal function is improving nicely. I have changed the intravenous (IV) fluids because of patient's persistent hypernatremia. 2. Hypernatremia. It is secondary to a combination of postobstructive diuresis and inability of the patient to take adequate amount of water. IV fluids have been changed to D5W plus 20 mEq of potassium chloride (KCl) at 75 mL/h. Sodium level is expected to improve over the next 24 hours. 3. Obstructive uropathy. Continue the Choi catheter at this time. Patient was started on Flomax 0.4 mg by mouth daily. Continue current dose. Patient will need to be evaluated by urology as outpatient. 4. Metabolic encephalopathy. Patient has a baseline history of Parkinson's disease as well. He is going for CT scan to rule out any acute intracranial pathology. 5. History of congestive heart failure. Patient's volume status is optimized at this time. Continue the gentle hydration for hypernatremia.
[2017-03-16 06:00] VITALS: BP 156/79
[2017-03-16 06:32] LABS: BASO % 0.4 % (0.0-1.0); EOS # 0.3 K/mm3 (0.0-0.50); EOS % 6.9 % (0.0-3.0); LARGE UNSTAINED CELL # 0.1 K/mm3 (0.0-0.4); LARGE UNSTAINED CELL % 1.7 % (0.0-4.0); LYMPH # 1.1 K/mm3 (1.5-4.5); LYMPH % 27.4 % (24.0-44.0); MEAN CORPUSCULAR HEMOGLOBIN 30.6 pg (27.0-33.0); MEAN CORPUSCULAR HGB CONC 33.7 g/dl (32.0-36.5); MEAN CORPUSCULAR VOLUME 90.8 fl (80.0-96.0); MONO # 0.2 K/mm3 (0.0-0.8); MONO % 5.3 % (0.0-5.0); NEUTROPHILS # 2.3 K/mm3 (1.8-7.7); NEUTROPHILS % 58.3 % (36.0-66.0); PLATELET COUNT, AUTOMATED 159 k/mm3 (150-450); RED CELL DISTRIBUTION WIDTH 13.7 % (11.5-14.5); WHITE BLOOD COUNT 3.9 K/mm3 (4.0-10.0)
[2017-03-16 07:01] LABS: CALCIUM LEVEL 8.2 MG/DL (8.8-10.2); CREATININE FOR GFR 1.24 MG/DL (0.70-1.30); GLOMERULAR FILTRATION RATE 59.1 (>35); POTASSIUM SERUM 4.3 MEQ/L (3.5-5.1)
[2017-03-16] MEDS: HEPARIN SOD (PORCINE) 5000 UNITS/ML VIAL SC SCH (08:06)
[2017-03-16] MEDS: HumaLOG INSULIN (NovoLOG) PER UNIT SC SCH (08:06)
[2017-03-16] MEDS: DOCUSATE SODIUM 100 MG CAP PO SCH (08:06)
[2017-03-16 08:07] VITALS: BP 156/66
[2017-03-16] MEDS: BISOPROLOL FUM 2.5 MG PER 1/2TAB PO SCH (08:07)
[2017-03-16] MEDS: FERROUS SULFATE 325MG TAB PO SCH (08:07)
[2017-03-16] MEDS: TAMSULOSIN 0.4 MG CAP PO SCH (08:08)
[2017-03-16] MEDS: rOPINIRole 1MG TAB PO SCH (08:08)
[2017-03-16] MEDS: SINEMET 25-100 MG TAB PO SCH (08:08)
[2017-03-16] MEDS: NORCO, ANEXSIA 5/325MG TABLET (HYDROcodone/ACETAMINOPHEN) PO SCH (08:08)
[2017-03-16] MEDS: PRIMIDONE 50 MG TAB PO SCH (08:08)
--- NOTE | 2017-03-16 11:06 | REP ---
Clinical: Follow up for obstructive uropathy. Comparison: 03/12/2017. Technique: Real time montoya scale ultrasound examination using curved array transducer. Findings: With the exception of a stable 3.8 cm right cortical cyst, the kidneys are mildly echogenic, but normal in reniform shape and without hydronephrosis, nephrolithiasis, or mass lesion. Current examination also demonstrates a 1.2 cm left cortical based cyst which was not identified on prior examination. Right kidney measures 12.1 x 4.6 x 4.4 cm. Left kidney measures 0.2 x 4.3 x 4.8 cm. Choi catheter identified in collapsed bladder and bladder wall thickening up to 22 mm cannot definitively be excluded based on current images. The prostate gland is heterogeneous and enlarged measuring 5.5 x 5.5 x 3.4 cm. Splenomegaly cannot be excluded without obvious focal splenic lesion identified. Impression: 1. Kidneys demonstrate chronic medical renal disease without hydronephrosis and simple cysts as described above. 2. Possible bladder wall thickening along with enlarged heterogeneous prostate gland. 3. Possible splenomegaly without obvious focal splenic lesion. Signed by Werner Jack MD 03/16/2017 10:58 A
[2017-03-16] MEDS: cefTRIAXone SOD 1 GM in D5W MINI-BAG PLUS 50 ML IV SCH (11:48)
[2017-03-16] MEDS ORDERED: AUGM500T34 PO (11:56)
[2017-03-16] MEDS ORDERED: FLOM5CAP PO (11:56)
--- NOTE | 2017-03-16 12:45 | DS.PDOC ---
Discharge Summary General Date of Admission Mar 12, 2017 at 16:22 Date of Discharge 03/16/17 Attending Physician: ALEXIS MOHAN MD Specialist/Consultants Involve: SONYA LEMON MD Discharge Summary PROCEDURES PERFORMED DURING STAY: None. ADMITTING/DISCHARGE DIAGNOSES: 1. Acute renal failure 2. Metabolic encephalopathy resolved 3. Hypernatremia resolved 4. Hyperkalemia resolved 5. UTI aerococcus urinae 6. History of Parkinson's 7. History of CAD status post septal infarct8. History of basal ganglia infarcts and subarachnoid hemorrhage 8. Restless leg syndrome 9. Chronic peripheral neuropathy COMPLICATIONS/CHIEF COMPLAINT: Arf; Acute Urinary Retention;Ams. HISTORY OF PRESENT ILLNESS/HOSPITAL COURSE: This is a 82-year-old male with past medical history Parkinson's disease, CAD, will presents with increasing lethargy and generalized weakness over the past 4 days prior to admission. Upon admission patient was noted to be in acute renal failure likely obstructive etiology given 2300 mL urine output with Choi placement. Patient was started on IV fluids with significant improvement in his renal function. Patient was also noted to have mild right-sided hydroureter nephrosis. Patient will be continued on Choi catheter, started on Flomax, and will need outpatient urology as well as nephrology follow-up. Patient was noted to have a +UA with urine culture positive, for which he was treated with Abx. Pt is hemodynamically stable and ready to be discharged back to [facility]. Sons at bedside have been updated on the above. DISCHARGE MEDICATIONS: Please see below. ALLERGIES: Please see below. PHYSICAL EXAMINATION ON DISCHARGE: PSYCHIATRIC EXAMINATION: Vitals: (see below) General: No acute distress, laying comfortably in bed. HEENT: Moist mucous membranes. Neck: No JVD or lymphadenopathy Cardiac: RRR, No murmurs Pulm: Clear to auscultation b/l. No wheezing, rhonchi Abd: NT/ND + BS Ext: Trace edema bilateral lower extremities. No cyanosis Alert and oriented 3. Moving all extremities. Following commands. LABORATORY DATA: Please see below. IMAGING: CXR 03/12/17 Impression: Subtle bibasilar atelectasis similar to prior examination. Renal u/s 03/12/17 Impression: 1. Chronic medical renal disease with 4 cm right lower pole renal cyst similar to prior examination. 2. Mild right-sided hydroureteronephrosis suggested. PROGNOSIS: Guarded ACTIVITY: As tolerated. DIET: Renal diet DISCHARGE PLAN/DISPOSITION: [facility] DISCHARGE INSTRUCTIONS: 1. Follow-up with PCP, urology, nephrology in 1-[address] in [address] until seen by her urologist. DISCHARGE CONDITION: Stable. TIME SPENT ON DISCHARGE: Greater than 30 minutes. Vital Signs/I&Os Vital Signs Date Time Temp Pulse Resp B/P (MAP) Pulse Ox O2 Delivery O2 Flow Rate FiO2 03/16/17 08:38 18 03/16/17 08:07 76 156/66 03/16/17 06:00 99.2 99 Nasal Cannula 2.0 I&O- Last 24 Hours up to 6 AM 03/16/17 06:00 Intake Total 1185 ml Output Total 1375 ml Balance -190 ml Laboratory Data Labs 24H Laboratory Tests 2 03/15/17 16:35: Bedside Glucose (Misc Panel) 148H 03/15/17 20:27: Bedside Glucose (Misc Panel) 246H 03/16/17 05:27: White Blood Count 3.9L, Red Blood Count 3.55L, Hemoglobin 10.8L, Hematocrit 32.2L, Mean Corpuscular Volume 90.8, Mean Corpuscular Hemoglobin 30.6, Mean Corpuscular Hemoglobin Concent 33.7, Red Cell Distribution Width 13.7, Platelet Count 159, Neutrophils (%) (Auto) 58.3, Lymphocytes (%) (Auto) 27.4, Monocytes ( %) (Auto) 5.3H, Eosinophils (%) (Auto) 6.9H, Basophils (%) (Auto) 0.4, Neutrophils # (Auto) 2.3, Lymphocytes # (Auto) 1.1L, Monocytes # (Auto) 0.2, Eosinophils # (Auto) 0.3, Basophils # (Auto) 0.0, Large Unclassified Cells % 1.7 , Large Unclassified Cells # 0.1, Anion Gap 6L, Glomerular Filtration Rate 59.1 , Blood Urea Nitrogen 20H, Creatinine 1.24, Sodium Level 142, Potassium Level 4.3, Chloride Level 111H, Carbon Dioxide Level 25, Calcium Level 8.2L, Magnesium Level 2.0 03/16/17 11:48: Bedside Glucose (Misc Panel) 184H CBC/BMP Laboratory Tests 03/16/17 05:27 Red Blood Count 3.55 L, Mean Corpuscular Volume 90.8, Mean Corpuscular Hemoglobin 30.6, Mean Corpuscular Hemoglobin Concent 33.7, Red Cell Distribution Width 13.7, Neutrophils (%) (Auto) 58.3, Lymphocytes (%) (Auto) 27.4, Monocytes (%) (Auto) 5.3 H, Eosinophils (%) (Auto) 6.9 H, Basophils (%) ( Auto) 0.4, Neutrophils # (Auto) 2.3, Lymphocytes # (Auto) 1.1 L, Monocytes # ( Auto) 0.2, Eosinophils # (Auto) 0.3, Basophils # (Auto) 0.0, Calcium Level 8.2 L FSBS Laboratory Tests Test 03/15/17 16:35 03/15/17 20:27 03/16/17 11:48 Range/Units Bedside Glucose (Misc Panel) 148 246 184 83-110 MG/DL Microbiology Microbiology 03/12/17 Blood Culture - Preliminary, Resulted No Growth after 72 hours. All specime... 03/12/17 Blood Culture - Preliminary, Resulted No Growth after 72 hours. All specime... 03/12/17 Urine Culture - Final, Complete Aerococcus Urinae Discharge Medications Scheduled (Biofreeze) 4 % Gel, 4 % EXT TID, (Reported) LEFT HIP PAIN Acetaminophen (Acetaminophen) 325 Mg Tab, 650 MG PO BID, (Reported) 1300,2000 Acetaminophen/Hydrocodone (Hydrocodone/Acetaminophen 5-325 mg) 1 Tab Tab, 1 TAB PO BID, (Reported) 0800, 2000 Amoxicillin/Clavulanate Potas (Augmentin 500-125 mg) 1 Tab Tab, 500 MG PO BID Bisoprolol Fumarate (Bisoprolol Fumarate) 5 Mg Tab, 2.5 MG PO BID, (Reported) Carbidopa/Levodopa (Carbidopa/Levodopa 25-100 mg) 1 Tab Tab, 2 TAB PO QID, ( Reported) 0800,1200,1600,2000 Docusate Sodium (Docusate Sodium) 100 Mg Cap, 100 MG PO BID, (Reported) Ergocalciferol (Vitamin D) 50,000 Unit Cap, 50,000 UNIT PO 1XWK, (Reported) SATURDAY Gabapentin (Neurontin) 100 Mg Cap, 100 MG PO QHS, (Reported) Glipizide (Glipizide ER) 2.5 Mg Tab, 2.5 MG PO DAILY, (Reported) Melatonin (Melatonin) 5 Mg Tab, 5 MG PO QHS, (Reported) Mirtazapine (Mirtazapine) 7.5 Mg Tab, 7.5 MG PO QHS, (Reported) Primidone (Primidone) 50 Mg Tab, 50 MG PO BID, (Reported) Pyridoxine HCl (Vitamin B6) 100 Mg Tab, 100 MG PO DAILY, (Reported) Ropinirole Hydrochloride (Ropinirole HCl) 2 Mg Tab, 2 MG PO BID, (Reported) Tamsulosin Hydrochloride (Flomax) 0.4 Mg Cap, 0.4 MG PO DAILY Scheduled PRN Acetaminophen (Acetaminophen) 325 Mg Tab, 650 MG PO Q4H PRN for PAIN, (Reported) Acetaminophen/Hydrocodone ([place] 5-325 mg) 1 Tab Tab, 1 TAB PO DAILY PRN for SEVERE PAIN (PS 8-10), (Reported) Bisacodyl (Bisacodyl Laxative) 10 Mg Sup, 10 MG AK DAILY PRN for CONSTIPATION, ( Reported) Milk Of Magnesia (Milk of Magnesia) 1,200 Mg/15 Ml Inna, 30 ML PO DAILY PRN for CONSTIPATION, (Reported) Nitroglycerin (Nitrostat) 0.4 Mg Subl, 0.4 MG SL NITRO PRN for ANGINA, (Reported ) Sodium Phosphate/Biphosphate (Enema 7-19 gm/118Ml) 1 John John, 1 JOHN AK DAILY PRN for CONSTIPATION, (Reported) Allergies Coded Allergies: Captopril (Unverified Adverse Reaction, Mild, COUGH, 12/23/12) ALEXIS MOHAN MD Mar 16, 2017 12:45
--- NOTE | 2017-03-16 15:00 | IPN ---
DATE OF VISIT: 03/16/2017 Mr. Ledesma is seen this morning on his bedside. His sons are present in the room. The patient reports feeling well and denies any complaints. He was admitted with urinary retention and acute renal failure. He has a Choi catheter currently which is draining clear urine. His urine culture did come back positive for Aerococcus. The patient is currently receiving IV fluid, however he reports that his appetite has improved and he is eating fairly well. PHYSICAL EXAMINATION: Temperature 99.2 degrees Fahrenheit, heart rate 72 per minute and respiratory rate 18 per minute. Blood pressure 156/79 mmHg and oxygen saturation 99% on 2 liters oxygen. Intake and output records from yesterday showed total intake 1425 and output 1050 mL. Out of this is oral intake was only 600 mL and 825 mL intake was from IV fluid. His neck is supple and there is no JVD or thyroid enlargement. Head is atraumatic. Ears, nose and throat are unremarkable. Pupils equal and reactive to light and sclera is anicteric. Heart: Sounds are regular and lungs with slightly diminished breath sounds at bases with poor inspiratory effort. Abdomen: Soft and nontender and without a palpable organomegaly. Bowel sounds are normal. Extremities have no cyanosis or clubbing. Skin has no rash or ulcers. Neurologically he is awake and able to answer questions appropriately. Today's labs show WBC count 3.9, hemoglobin 10.8 and hematocrit 32.2. Sodium 142 and potassium 4.3. BUN 20 and creatinine 1.24. Calcium level is 8.2 and magnesium 2.0. PROBLEMS: 1. Acute kidney injury. Most likely related to dehydration and urinary retention. Kidney function has now improved significantly. His oral intake is still not great and yesterday total oral intake was only 600 mL. We will need to push more oral fluids and then his IV fluid can be stopped. I am concerned about recurrent acute renal failure in the case of poor oral intake and stopping of IV fluid. 2. Hypernatremia due to acute renal failure and dehydration. Sodium level has improved now. He is currently receiving IV fluid. Once his oral intake is adequate then IV fluid can be stopped. 3. Urinary retention. I have discussed with the patient's son at length. Patient is 82-year-old and mostly bedridden. He had a massive urinary retention and is likely to get recurrent retention in case of removal of Choi catheter. At present he will continue with Flomax 0.4 mg and keep the Choi catheter in. A trial of void could be attempted in a couple of weeks, though I am not very optimistic that it is going to work. 4. Anemia. His anemia is stable at present and no intervention is indicated. His iron was only slightly low. I would recommend to continue with oral iron supplement. 5. Urinary tract infection (UTI). The patient remains on ceftriaxone 1 gram every 24 hours. DISPOSITION: Once his oral had intake is adequate and IV fluid can be safely stopped then patient can be discharged back to [facility]. [place]
== END 2017-03-16 12:41 | DRG 682 ==
LOC: M ED 14:20 → M ED INP 16:22 → M MSPAV 18:31
PROVIDERS: ADMIT Hospitalist; ATTEND Internal Medicine
DX: N17.9 Acute kidney failure, unspecified (principal); G93.41 Metabolic encephalopathy; E87.0 Hyperosmolality and hypernatremia; N39.0 Urinary tract infection, site not specified; G20 Parkinson's disease; E11.42 Type 2 diabetes mellitus with diabetic polyneuropathy; I25.10 Atherosclerotic heart disease of native coronary artery without angina pectoris; E86.0 Dehydration; E87.6 Hypokalemia; I25.2 Old myocardial infarction; N13.30 Unspecified hydronephrosis; E11.649 Type 2 diabetes mellitus with hypoglycemia without coma; I50.9 Heart failure, unspecified; G25.81 Restless legs syndrome; R33.9 Retention of urine, unspecified; N18.9 Chronic kidney disease, unspecified; N13.9 Obstructive and reflux uropathy, unspecified; D63.1 Anemia in chronic kidney disease; I27.2 Other secondary pulmonary hypertension; R31.9 Hematuria, unspecified; Z79.84 Long term (current) use of oral hypoglycemic drugs; Z79.899 Other long term (current) drug therapy; Z87.891 Personal history of nicotine dependence; Z88.8 Allergy status to other drugs, medicaments and biological substances

== ENCOUNTER → 2017-03-12 | Outpatient (REF) | payer MEDICARE ==
[~2017-03-12] MED LIST changes: +BIOF4GEL2 EXT; +GLIP2.5T6 PO; +HYDR-3713 PO; +MIRT1TAB PO; +NEUR100C PO; +NORC1TAB4 PO; +VITA100T96 PO
[2017-03-12 10:38] LABS: BASO % 0.2 % (0.0-1.0); EOS # 0.1 K/mm3 (0.0-0.50); EOS % 1.2 % (0.0-3.0); LARGE UNSTAINED CELL # 0.1 K/mm3 (0.0-0.4); LARGE UNSTAINED CELL % 0.9 % (0.0-4.0); LYMPH % 14.5 % (24.0-44.0); MEAN CORPUSCULAR HEMOGLOBIN 30.2 pg (27.0-33.0); MEAN CORPUSCULAR HGB CONC 32.7 g/dl (32.0-36.5); MEAN CORPUSCULAR VOLUME 92.1 fl (80.0-96.0); MONO # 0.3 K/mm3 (0.0-0.8); MONO % 4.3 % (0.0-5.0); NEUTROPHILS # 4.9 K/mm3 (1.8-7.7); NEUTROPHILS % 78.9 % (36.0-66.0); PLATELET COUNT, AUTOMATED 154 k/mm3 (150-450); RED CELL DISTRIBUTION WIDTH 14.6 % (11.5-14.5); WHITE BLOOD COUNT 6.2 K/mm3 (4.0-10.0)
[2017-03-12 11:09] LABS: CALCIUM LEVEL 8.1 MG/DL (8.8-10.2); CREATININE FOR GFR 5.17 MG/DL (0.70-1.30); GLOMERULAR FILTRATION RATE 11.4 (>35); PHENOBARBITAL LEVEL 4.9 UG/ML (15.0-40.0)
[2017-03-12 11:14] LABS: POTASSIUM SERUM 5.7 MEQ/L (3.5-5.1)
--- NOTE | 2017-03-12 12:33 | REP ---
Chest, single AP view, patient erect: Comparison is 11/13/2016. There is increased radiodensity inferomedially in the lung bases bilaterally, atelectasis versus acute infiltrates, not present previously. There are no pleural effusions. The lung ortega otherwise clear and unchanged. Cardiac size is normal. The anshul, mediastinum, and bony thorax are unchanged. Pacemaker is again noted, unchanged. Impression: Bibasilar densities as described, as an interval change. Signed by Tang Hudson MD 03/12/2017 12:25 P
[2017-03-14 00:06] LABS: PHENOBARBITAL (PRIMIDONE) 4 ug/mL (15-40)
== END ==
DX: I50.9 Heart failure, unspecified (principal); R50.9 Fever, unspecified; R56.9 Unspecified convulsions

== ENCOUNTER → 2017-03-21 | Outpatient (REF) | payer MEDICARE ==
[~2017-03-21] MED LIST changes: +AUGM500T34 PO; +BENPAD TOP; +BIOF4GEL2 TOP; +CALC1CAP31 PO; +CEFD1CAP8 PO; +FERR1TAB8 PO; +FLOM5CAP PO; +GLIP2.5T6 PO; +HYDR-3713 PO; +MIRT1TAB PO; +NEUR100C PO; +NORC1TAB4 PO; +SENN8.6T7 PO; +VITA10002 PO; +VITA100T96 PO
[2017-03-21 12:12] LABS: URIC ACID 5.1 MG/DL (3.5-7.2)
== END ==
DX: N18.9 Chronic kidney disease, unspecified (principal); D63.1 Anemia in chronic kidney disease

== ENCOUNTER → 2017-04-09 | Outpatient (REF) ==
[2017-04-09 11:40] LABS: MEAN CORPUSCULAR HEMOGLOBIN 30.6 pg (27.0-33.0); MEAN CORPUSCULAR HGB CONC 33.2 g/dl (32.0-36.5); MEAN CORPUSCULAR VOLUME 92.2 fl (80.0-96.0); RED CELL DISTRIBUTION WIDTH 14.8 % (11.5-14.5); WHITE BLOOD COUNT 5.2 K/mm3 (4.0-10.0)
[2017-04-09 12:13] LABS: ALBUMIN 3.1 GM/DL (3.2-5.2); ALBUMIN/GLOBULIN RATIO 1.15 (1.00-1.93); ALKALINE PHOSPHATASE 77 U/L (45-117); ALT/SGPT 8 U/L (12-78); ANION GAP 6 MEQ/L (8-16); AST/SGOT 13 U/L (15-37); BILIRUBIN,TOTAL 0.5 MG/DL (0.2-1.0); BLOOD UREA NITROGEN 19 MG/DL (7-18); CALCIUM LEVEL 8.5 MG/DL (8.8-10.2); CARBON DIOXIDE LEVEL 29 MEQ/L (21-32); CHLORIDE LEVEL 102 MEQ/L (98-107); CREATININE FOR GFR 1.07 MG/DL (0.70-1.30); GLOMERULAR FILTRATION RATE > 60.0 (>35); GLUCOSE, FASTING 111 MG/DL (83-110); POTASSIUM SERUM 4.2 MEQ/L (3.5-5.1); SODIUM LEVEL 137 MEQ/L (136-145); TOTAL PROTEIN 5.8 GM/DL (6.4-8.2)
[2017-04-09 14:39] LABS: VITAMIN B12 LEVEL 278 PG/ML (247-911)
== END ==
DX: N18.9 Chronic kidney disease, unspecified (principal); E03.9 Hypothyroidism, unspecified; E55.9 Vitamin D deficiency, unspecified; E11.9 Type 2 diabetes mellitus without complications

== ENCOUNTER → 2017-04-25 | Outpatient (REF) | DX: E53.0 Riboflavin deficiency (principal) ==

== ENCOUNTER → 2017-05-14 | Outpatient (REF) | payer MEDICARE ==
[2017-05-14 10:33] LABS: MEAN CORPUSCULAR HEMOGLOBIN 30.8 pg (27.0-33.0); MEAN CORPUSCULAR HGB CONC 33.6 g/dl (32.0-36.5); MEAN CORPUSCULAR VOLUME 91.8 fl (80.0-96.0); RED CELL DISTRIBUTION WIDTH 14.3 % (11.5-14.5); WHITE BLOOD COUNT 4.6 K/mm3 (4.0-10.0)
[2017-05-14 11:05] LABS: ALBUMIN 3.4 GM/DL (3.2-5.2); ANION GAP 5 MEQ/L (8-16); BLOOD UREA NITROGEN 21 MG/DL (7-18); CALCIUM LEVEL 8.5 MG/DL (8.8-10.2); CARBON DIOXIDE LEVEL 32 MEQ/L (21-32); CHLORIDE LEVEL 106 MEQ/L (98-107); CREATININE FOR GFR 1.09 MG/DL (0.70-1.30); GLOMERULAR FILTRATION RATE > 60.0 (>35); GLUCOSE, FASTING 163 MG/DL (83-110); MAGNESIUM LEVEL 2.6 MG/DL (1.8-2.4); PHOSPHORUS LEVEL 2.8 MG/DL (2.5-4.9); POTASSIUM SERUM 4.1 MEQ/L (3.5-5.1); SODIUM LEVEL 143 MEQ/L (136-145)
== END ==
DX: I10 Essential (primary) hypertension (principal)

== ENCOUNTER → 2017-06-12 | Outpatient (REF) ==
[2017-06-12 09:34] LABS: MEAN CORPUSCULAR HEMOGLOBIN 30.6 pg (27.0-33.0); MEAN CORPUSCULAR HGB CONC 33.2 g/dl (32.0-36.5); RED CELL DISTRIBUTION WIDTH 13.2 % (11.5-14.5); WHITE BLOOD COUNT 6.2 10^3/uL (4.0-10.0)
[2017-06-12 10:25] LABS: CALCIUM LEVEL 8.5 MG/DL (8.8-10.2); CREATININE FOR GFR 1.28 MG/DL (0.70-1.30); POTASSIUM SERUM 4.1 MEQ/L (3.5-5.1)
== END ==
DX: R41.0 Disorientation, unspecified (principal)

== ENCOUNTER → 2017-06-18 | Outpatient (REF) ==
[2017-06-18 11:20] LABS: BASO % 0.4 % (0.0-1.0); EOS # 0.1 10^3/uL (0.0-0.50); EOS % 2.7 % (0.0-3.0); IMMATURE GRANULOCYTE % 0.4 % (0-0); LYMPH # 1.3 10^3/uL (1.5-4.5); LYMPH % 26.8 % (24.0-44.0); MEAN CORPUSCULAR HEMOGLOBIN 31.4 pg (27.0-33.0); MEAN CORPUSCULAR HGB CONC 34.3 g/dl (32.0-36.5); MEAN CORPUSCULAR VOLUME 91.7 fl (80.0-96.0); MONO # 0.3 10^3/uL (0.0-0.8); MONO % 6.8 % (0.0-5.0); NEUTROPHILS # 3.1 10^3/uL (1.8-7.7); NEUTROPHILS % 62.9 % (36.0-66.0); PLATELET COUNT, AUTOMATED 141 10^3/uL (150-450); RED CELL DISTRIBUTION WIDTH 13.1 % (11.5-14.5); WHITE BLOOD COUNT 4.9 10^3/uL (4.0-10.0)
[2017-06-18 11:21] LABS: ADD MANUAL DIFFER NO; DIFF SLIDE NUMBER 72
[2017-06-18 11:49] LABS: ALBUMIN 3.3 GM/DL (3.2-5.2); ANION GAP 4 MEQ/L (8-16); BLOOD UREA NITROGEN 18 MG/DL (7-18); CALCIUM LEVEL 8.2 MG/DL (8.8-10.2); CARBON DIOXIDE LEVEL 30 MEQ/L (21-32); CHLORIDE LEVEL 108 MEQ/L (98-107); CREATININE FOR GFR 1.13 MG/DL (0.70-1.30); GLOMERULAR FILTRATION RATE > 60.0 (>35); GLUCOSE, FASTING 158 MG/DL (83-110); PHOSPHORUS LEVEL 2.6 MG/DL (2.5-4.9); POTASSIUM SERUM 4.3 MEQ/L (3.5-5.1); SODIUM LEVEL 142 MEQ/L (136-145); URIC ACID 4.5 MG/DL (3.5-7.2)
== END ==
DX: I10 Essential (primary) hypertension (principal)

== ENCOUNTER 2017-06-20 16:15 | Emergency (ER) | payer MEDICARE ==
[~2017-06-20 16:15] MED LIST changes: -BENPAD TOP; -CALC1CAP31 PO; -CEFD1CAP8 PO; -FERR1TAB8 PO; -SENN8.6T7 PO; -VITA10002 PO
[2017-06-20] MEDS ORDERED: MORPHINE 2 MG/ML 1ML SYRINGE IV ONE (18:00)
[2017-06-20 18:32] LABS: BASO % 0.2 % (0.0-1.0); EOS # 0.1 10^3/uL (0.0-0.50); EOS % 0.7 % (0.0-3.0); IMMATURE GRANULOCYTE % 0.2 % (0-0); LYMPH # 1.1 10^3/uL (1.5-4.5); LYMPH % 12.8 % (24.0-44.0); MEAN CORPUSCULAR HEMOGLOBIN 30.7 pg (27.0-33.0); MEAN CORPUSCULAR HGB CONC 33.5 g/dl (32.0-36.5); MEAN CORPUSCULAR VOLUME 91.7 fl (80.0-96.0); MONO # 0.7 10^3/uL (0.0-0.8); MONO % 8.2 % (0.0-5.0); NEUTROPHILS # 6.7 10^3/uL (1.8-7.7); NEUTROPHILS % 77.9 % (36.0-66.0); PLATELET COUNT, AUTOMATED 154 10^3/uL (150-450); RED CELL DISTRIBUTION WIDTH 13.1 % (11.5-14.5); WHITE BLOOD COUNT 8.7 10^3/uL (4.0-10.0)
[2017-06-20] MEDS ORDERED: BENPAD TOP (18:33)
[2017-06-20 18:41] LABS: ADD MORPHOLOGY? NO
[2017-06-20] MEDS ORDERED: VITA10002 PO (18:47)
[2017-06-20] MEDS ORDERED: CALC1CAP31 PO (18:47)
[2017-06-20] MEDS ORDERED: SENN8.6T7 PO (18:47)
[2017-06-20] MEDS ORDERED: FERR1TAB8 PO (18:47)
[2017-06-20 19:01] LABS: ALBUMIN 3.7 GM/DL (3.2-5.2); ALBUMIN/GLOBULIN RATIO 0.97 (1.00-1.93); ALKALINE PHOSPHATASE 75 U/L (45-117); ALT/SGPT 8 U/L (12-78); AMYLASE 36 U/L (25-115); ANION GAP 5 MEQ/L (8-16); AST/SGOT 14 U/L (15-37); BILIRUBIN,DIRECT 0.2 MG/DL (0.0-0.2); BILIRUBIN,TOTAL 0.8 MG/DL (0.2-1.0); BLOOD UREA NITROGEN 18 MG/DL (7-18); CALCIUM LEVEL 8.9 MG/DL (8.8-10.2); CARBON DIOXIDE LEVEL 30 MEQ/L (21-32); CHLORIDE LEVEL 106 MEQ/L (98-107); CREATININE FOR GFR 1.12 MG/DL (0.70-1.30); GLOMERULAR FILTRATION RATE > 60.0 (>35); GLUCOSE, FASTING 142 MG/DL (83-110); POTASSIUM SERUM 4.1 MEQ/L (3.5-5.1); SODIUM LEVEL 141 MEQ/L (136-145); TOTAL PROTEIN 7.5 GM/DL (6.4-8.2)
--- NOTE | 2017-06-20 20:00 | REPUSA ---
CLINICAL HISTORY: Pain. TECHNIQUE: Multiple axial, coronal, sagittal CT images were obtained through the abdomen and pelvis without administration of oral or IV contrast material. COMMENTS: The liver is of uniform attenuation without mass or defect. There is no intra or extrahepatic biliar y ductal dilatation. The spleen is normal. The patient is status post cholecystectomy. The pancrea s is of normal contour and attenuation characteristics. There is no evidence of adrenal mass. Mild to moderate bilateral hydroureteronephrosis is seen likely related to bladder over distention. There is a 4.0 x 2.5 cm exophytic cyst noted in the mid pole of the right kidney. There is no hydrou reter or hydronephrosis. There is no evidence for appendicitis. There is no bowel wall thickening. No evidence for small or large bowel obstruction. There is fecal material noted within the anus and the patient appears to be actually defecating. There is no evidence of abdominal ascites or lymphadenopathy. The bladder is massively distended contains air Choi catheter balloon appears to be at the level of the prostate and needs to be repositioned. There is no pelvic ascites or lymphadenopathy. Right inguinal hernia is noted containing fat and fluid. Note is made of multi-component solid mass overlying the right lateral gluteus measuring 9.5 x 5.0 cm . Differential includes solid mass such as sarcoma versus hematoma. Further evaluation with MRI or CT pre and post contrast. Images of the lung bases show no evidence of pleural or parenchymal mass. There are no pleural effus ions. Scarring is seen in both lung bases. The bony structures are free of lytic or blastic lesions. IMPRESSION: 1. The patient is status post cholecystectomy. 2. Scarring is seen in both lung bases. 3. Exophytic cyst in the mid pole of the right kidney. 4. Right inguinal hernia containing fat and fluid. 5. Fecal material within the anus and the patient appears to be actually defecating. 6. Mild to moderate bilateral hydroureteronephrosis likely related to bladder over distention. 7. Multi-component solid mass overlying the right lateral gluteus. Differential includes solid mass such as sarcoma versus hematoma. Further evaluation with MRI or CT pre and post contrast. 8. The bladder is massively distended contains air and Choi catheter balloon appears to be at the l evel of the prostate and needs to be repositioned.
[2017-06-20 20:08] LABS: CALCIUM OXALATE CRYSTALS LARGE
[2017-06-20] MEDS ORDERED: cefTRIAXone SOD 1 GM in D5W 50 ML IV ONE (20:30)
[2017-06-20] MEDS ORDERED: CEFD1CAP8 PO (20:38)
[2017-06-20 20:55] VITALS: BP 130/62
--- NOTE | 2017-06-22 05:31 | ECGEPIP ---
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 RBBB POOR R WAVE PROGRESSION NSTTW ABNORMALITIES SIMILAR TO 03/12/17 Electronically Signed On 06-22-2017 5:31:26 EDT by Matheus Houston
== END 2017-06-20 21:43 | disposition home or self-care (01) ==
LOC: M ED 16:15
DX: R33.9 Retention of urine, unspecified (principal); Z96.0 Presence of urogenital implants; N39.0 Urinary tract infection, site not specified; E11.9 Type 2 diabetes mellitus without complications; I11.0 Hypertensive heart disease with heart failure; N18.3 Chronic kidney disease, stage 3 (moderate); I25.10 Atherosclerotic heart disease of native coronary artery without angina pectoris; I50.9 Heart failure, unspecified; G20 Parkinson's disease; E78.5 Hyperlipidemia, unspecified; M19.90 Unspecified osteoarthritis, unspecified site; D51.0 Vitamin B12 deficiency anemia due to intrinsic factor deficiency; Z79.899 Other long term (current) drug therapy; Z88.8 Allergy status to other drugs, medicaments and biological substances; Z86.39 Personal history of other endocrine, nutritional and metabolic disease
CPT/HCPCS: 74176; 80048; 80076; 81001; 82150; 82550; 82553; 83605; 83690; 84484; 85025; 87040; 87088; 87186; 93005; 93041; 96374; 96375; 99285; J0696

== ENCOUNTER → 2017-06-20 | Outpatient (REF) ==
[2017-06-20 19:54] LABS: MEAN CORPUSCULAR HEMOGLOBIN 30.8 pg (27.0-33.0); MEAN CORPUSCULAR HGB CONC 33.2 g/dl (32.0-36.5); MEAN CORPUSCULAR VOLUME 92.9 fl (80.0-96.0); RED CELL DISTRIBUTION WIDTH 13.2 % (11.5-14.5)
[2017-06-20 20:26] LABS: ALBUMIN 3.7 GM/DL (3.2-5.2); ALBUMIN/GLOBULIN RATIO 1.16 (1.00-1.93); ALKALINE PHOSPHATASE 71 U/L (45-117); ALT/SGPT 9 U/L (12-78); ANION GAP 4 MEQ/L (8-16); AST/SGOT 15 U/L (15-37); BILIRUBIN,DIRECT 0.2 MG/DL (0.0-0.2); BILIRUBIN,TOTAL 0.7 MG/DL (0.2-1.0); BLOOD UREA NITROGEN 19 MG/DL (7-18); CALCIUM LEVEL 8.6 MG/DL (8.8-10.2); CARBON DIOXIDE LEVEL 32 MEQ/L (21-32); CHLORIDE LEVEL 105 MEQ/L (98-107); CREATININE FOR GFR 1.17 MG/DL (0.70-1.30); GLOMERULAR FILTRATION RATE > 60.0 (>35); GLUCOSE, FASTING 175 MG/DL (83-110); POTASSIUM SERUM 4.4 MEQ/L (3.5-5.1); SODIUM LEVEL 141 MEQ/L (136-145); TOTAL PROTEIN 6.9 GM/DL (6.4-8.2)
== END ==
DX: R41.82 Altered mental status, unspecified (principal)

== ENCOUNTER → 2017-07-10 | Outpatient (REF) | payer MEDICARE ==
[~2017-07-10] MED LIST changes: +BENPAD TOP; +CALC1CAP31 PO; +CEFD1CAP8 PO; +FERR1TAB8 PO; +SENN8.6T7 PO; +VITA10002 PO
== END ==
DX: E11.9 Type 2 diabetes mellitus without complications (principal)

== ENCOUNTER → 2017-07-20 | Outpatient (REF) | payer MEDICARE ==
[2017-07-20 15:58] LABS: MEAN CORPUSCULAR HEMOGLOBIN 30.7 pg (27.0-33.0); PLATELET COUNT, AUTOMATED 145 10^3/uL (150-450); RED CELL DISTRIBUTION WIDTH 13.3 % (11.5-14.5); WHITE BLOOD COUNT 5.1 10^3/uL (4.0-10.0)
== END ==
DX: R41.0 Disorientation, unspecified (principal)

== ENCOUNTER → 2017-07-24 | Outpatient (REF) | payer MEDICARE ==
[2017-07-24 13:59] LABS: BASO % 0.2 % (0.0-1.0); EOS # 0.2 10^3/uL (0.0-0.50); EOS % 2.5 % (0.0-3.0); IMMATURE GRANULOCYTE % 0.3 % (0-0); LYMPH # 1.2 10^3/uL (1.5-4.5); LYMPH % 19.3 % (24.0-44.0); MEAN CORPUSCULAR HEMOGLOBIN 31.4 pg (27.0-33.0); MEAN CORPUSCULAR HGB CONC 33.6 g/dl (32.0-36.5); MEAN CORPUSCULAR VOLUME 93.5 fl (80.0-96.0); MONO # 0.4 10^3/uL (0.0-0.8); MONO % 6.5 % (0.0-5.0); NEUTROPHILS # 4.6 10^3/uL (1.8-7.7); NEUTROPHILS % 71.2 % (36.0-66.0); PLATELET COUNT, AUTOMATED 140 10^3/uL (150-450); RED CELL DISTRIBUTION WIDTH 13.4 % (11.5-14.5); WHITE BLOOD COUNT 6.4 10^3/uL (4.0-10.0)
[2017-07-24 14:24] LABS: ALBUMIN 3.1 GM/DL (3.2-5.2); ANION GAP 6 MEQ/L (8-16); BLOOD UREA NITROGEN 16 MG/DL (7-18); CALCIUM LEVEL 8.4 MG/DL (8.8-10.2); CARBON DIOXIDE LEVEL 31 MEQ/L (21-32); CHLORIDE LEVEL 106 MEQ/L (98-107); CREATININE FOR GFR 0.99 MG/DL (0.70-1.30); GLOMERULAR FILTRATION RATE > 60.0 (>35); GLUCOSE, FASTING 169 MG/DL (83-110); MAGNESIUM LEVEL 2.3 MG/DL (1.8-2.4); PHOSPHORUS LEVEL 2.3 MG/DL (2.5-4.9); POTASSIUM SERUM 4.7 MEQ/L (3.5-5.1); SODIUM LEVEL 143 MEQ/L (136-145)
== END ==
DX: N28.89 Other specified disorders of kidney and ureter (principal); R41.0 Disorientation, unspecified

== ENCOUNTER → 2017-07-30 | Outpatient (REF) | payer MEDICARE ==
[2017-07-30 13:38] LABS: BASO % 0.2 % (0.0-1.0); EOS # 0.2 10^3/uL (0.0-0.50); EOS % 3.4 % (0.0-3.0); IMMATURE GRANULOCYTE % 0.2 % (0-0); LYMPH # 1.1 10^3/uL (1.5-4.5); LYMPH % 19.7 % (24.0-44.0); MEAN CORPUSCULAR HEMOGLOBIN 30.6 pg (27.0-33.0); MEAN CORPUSCULAR HGB CONC 32.6 g/dl (32.0-36.5); MEAN CORPUSCULAR VOLUME 93.9 fl (80.0-96.0); MONO # 0.3 10^3/uL (0.0-0.8); MONO % 5.4 % (0.0-5.0); NEUTROPHILS # 3.9 10^3/uL (1.8-7.7); NEUTROPHILS % 71.1 % (36.0-66.0); PLATELET COUNT, AUTOMATED 163 10^3/uL (150-450); RED CELL DISTRIBUTION WIDTH 13.3 % (11.5-14.5); WHITE BLOOD COUNT 5.5 10^3/uL (4.0-10.0)
[2017-07-30 14:08] LABS: ANION GAP 6 MEQ/L (8-16); BLOOD UREA NITROGEN 20 MG/DL (7-18); CALCIUM LEVEL 8.7 MG/DL (8.8-10.2); CARBON DIOXIDE LEVEL 31 MEQ/L (21-32); CHLORIDE LEVEL 105 MEQ/L (98-107); GLOMERULAR FILTRATION RATE > 60.0 (>35); GLUCOSE, FASTING 201 MG/DL (83-110); POTASSIUM SERUM 4.4 MEQ/L (3.5-5.1); SODIUM LEVEL 142 MEQ/L (136-145)
== END ==
DX: R53.83 Other fatigue (principal)

== ENCOUNTER → 2017-08-19 | Outpatient (CLI) | payer MEDICARE ==
[2017-08-19 14:09] LABS: ANION GAP 3 MEQ/L (8-16); BLOOD UREA NITROGEN 18 MG/DL (7-18); CALCIUM LEVEL 8.5 MG/DL (8.8-10.2); CARBON DIOXIDE LEVEL 34 MEQ/L (21-32); CHLORIDE LEVEL 106 MEQ/L (98-107); CREATININE FOR GFR 1.01 MG/DL (0.70-1.30); GLOMERULAR FILTRATION RATE > 60.0 (>35); GLUCOSE, FASTING 196 MG/DL (83-110); POTASSIUM SERUM 4.6 MEQ/L (3.5-5.1); SODIUM LEVEL 143 MEQ/L (136-145)
== END ==
LOC: M SMT 09:04
PROVIDERS: ATTEND Nurse Practitioner Women's Health
DX: R31.0 Gross hematuria (principal)
CPT/HCPCS: 36415; 80048; G0463

== ENCOUNTER → 2017-08-22 | Outpatient (CLI) | payer MEDICARE ==
[~2017-08-22] MED LIST changes: +ISOVUE-370 76% 100ML VIAL (Q9967) As Ordered ONE
--- NOTE | 2017-08-22 10:11 | REP ---
CT ABDOMEN AND PELVIS WITHOUT AND WITH CONTRAST: 08/22/2017 COMPARISON: Noncontrast CT 06/20/2017. CLINICAL HISTORY: Urinary retention, gross hematuria. TECHNIQUE: Scanning through the abdomen and pelvis without contrast followed by bolus of 100 mL [id number], scanning through the abdomen and pelvis and then delayed scans also performed. Coronal and sagittal reconstructions and 3D MIP reformats of the delayed images for CT urogram. FINDINGS: CT ABDOMEN: Lung bases show fibrotic changes bilaterally and some dependent atelectatic change in the lower lobes, unchanged from the previous CT. There is cardiomegaly with left atrial and ventricular enlargement. Pacer wire in the heart. Vascular calcifications in coronary arteries and the aorta. No pericardial thickening or effusion. There is hepatomegaly with a vertical diameter of the liver 18.8 cm midclavicular line. There is a simple cyst in the left hepatic lobe about 17 mm, unchanged. Subcentimeter cyst in the subcapsular region of the anterior right hepatic lobe, image 30, also noted. No subcapsular hematoma. No biliary dilatation. Clips in the gallbladder fossa from cholecystectomy. I see no hiatal hernia. The pancreas without mass, ductal dilatation, or adjacent inflammatory change. Adrenal glands show slight thickening of limbs but no nodular mass of significance. Collapsed colon shows no sign of colitis or diverticulitis in the abdomen proper. Small bowel loops are not abnormally dilated. No air-fluid levels. Lung window review of all CT slices abdomen/pelvis shows no perforation or free air. No aortic aneurysm or dissection. Diffuse atherosclerotic plaques. Calcifications at takeoffs of the major vessels from the aorta. There is splenomegaly with the spleen having a vertical diameter of 18.7 cm. On the previous studies, maximum diameter was 15.4 cm. No discrete splenic mass. There is no adjacent ascites. Kidneys show function, some sinus lipomatosis, 4.3 x 3.3 x 3 cm thick off the lateral aspect lower pole of the left kidney, unchanged. I do not see any definite renal stone on either side. A few calcifications in renal arteries are noted. No hydronephrosis, hydroureter, or ureteral stone on either side. No periaortic or other retroperitoneal pathologic adenopathy. Bone windows, unchanged with diffuse degenerative changes lower lumbar, thoracic spines. No destructive lesions. Lower ribs intact. No spondylolysis. CT PELVIS: Sacrum intact. SI joints with some sclerosis but no erosion or destructive lesion. Iliac bones, acetabuli, and hips with some degenerative change but no destructive lesions or subchondral cysts in both acetabular roofs. Iliac and femoral artery calcification without aneurysm. No ventral or inguinal hernia nor pathologic-sized inguinal adenopathy. The bladder is nearly empty. A Choi catheter balloon is seen inflated within it. There is some air in the bladder in small volume which may be due to Choi catheter insertion. There are also air bubbles in the wall of the bladder which could relate to emphysematous cystitis. Bladder wall thickness is certainly different from its normal appearance on the CT 2 months ago. Prostate enlarged. I do not see abdominal or pelvic pathologic-sized adenopathy. No ventral or inguinal hernia. Complex solid and cystic soft tissue mass peripheral to the gluteus muscles and proximal thigh, as on previous CT. This is right-sided. No similar finding on the left. Very inferior margin of the scan volume, question of an open wound at the medial aspect of the left buttock near the perineum is raised. This would have to be correlated clinically. IMPRESSION: 1. Choi catheter balloon inflated in the bladder with an air bubble in the bladder and some air in the bladder wall. The bladder wall is thickened, edematous, and very small volume of urine within. Findings may reflect emphysematous cystitis or cystitis with air trapped in the interstices of the mucosa of the edematous, collapsed bladder, regardless, this is a significant change from the previous study. 2. There is no hydronephrosis, hydroureter, renal or ureteral stone. Renal cyst, exophytic lower pole on the right, unchanged. 3. Complex solid and cystic mass peripheral aspect right gluteus and proximal thigh, unchanged. 4. Calcifications aorta and branches, cardiomegaly, and other chronic changes, stable. 5. Splenomegaly up to 18.7 cm vertical diameter, 2 months ago 15.4 cm. No focal lesion. Liver not enlarged and shows a few tiny cysts. Signed by Javier Herzog MD 08/22/2017 08:29 P
== END ==
LOC: M RAD 08:07
PROVIDERS: ATTEND Nurse Practitioner Women's Health
DX: R33.9 Retention of urine, unspecified (principal); R31.0 Gross hematuria
CPT/HCPCS: 74178; Q9967

== ENCOUNTER → 2017-09-05 | Outpatient (REF) | payer MEDICARE ==
[~2017-09-05] MED LIST changes: -ISOVUE-370 76% 100ML VIAL (Q9967) As Ordered ONE
[2017-09-05 17:57] LABS: MEAN CORPUSCULAR HEMOGLOBIN 30.9 pg (27.0-33.0); MEAN CORPUSCULAR HGB CONC 32.7 g/dl (32.0-36.5); MEAN CORPUSCULAR VOLUME 94.4 fl (80.0-96.0); PLATELET COUNT, AUTOMATED 167 10^3/uL (150-450); RED CELL DISTRIBUTION WIDTH 13.9 % (11.5-14.5); WHITE BLOOD COUNT 8.3 10^3/uL (4.0-10.0)
[2017-09-05 18:46] LABS: ANION GAP 5 MEQ/L (8-16); BLOOD UREA NITROGEN 19 MG/DL (7-18); CALCIUM LEVEL 8.2 MG/DL (8.8-10.2); CARBON DIOXIDE LEVEL 31 MEQ/L (21-32); CHLORIDE LEVEL 105 MEQ/L (98-107); CREATININE FOR GFR 0.98 MG/DL (0.70-1.30); GLOMERULAR FILTRATION RATE > 60.0 (>35); GLUCOSE, FASTING 167 MG/DL (83-110); POTASSIUM SERUM 4.7 MEQ/L (3.5-5.1); SODIUM LEVEL 141 MEQ/L (136-145)
== END ==
DX: R05 Cough (principal); R09.81 Nasal congestion

== ENCOUNTER → 2017-09-26 | Outpatient (REF) | payer MEDICARE ==
[2017-09-26 19:29] LABS: HEMATOCRIT 33.9 % (42.0-52.0); HEMOGLOBIN 11.4 g/dl (14.0-18.0); MEAN CORPUSCULAR HEMOGLOBIN 31.8 pg (27.0-33.0); MEAN CORPUSCULAR HGB CONC 33.6 g/dl (32.0-36.5); MEAN CORPUSCULAR VOLUME 94.7 fl (80.0-96.0); PLATELET COUNT, AUTOMATED 131 10^3/uL (150-450); RED BLOOD COUNT 3.58 10^6/uL (4.30-6.10); RED CELL DISTRIBUTION WIDTH 13.7 % (11.5-14.5); WHITE BLOOD COUNT 4.8 10^3/uL (4.0-10.0)
[2017-09-26 19:39] LABS: AMORPHOUS SEDIMENT SMALL (NEGATIVE); APPEARANCE, URINE HAZY (CLEAR); BACTERIA, URINE AUTO 2+ (NEGATIVE); BILIRUBIN, URINE AUTO NEGATIVE (NEGATIVE); BLOOD, URINE BLOOD 1+ (NEGATIVE); COLOR, URINE AMBER (YELLOW); GLUCOSE, URINE (UA) AUTO 1+ mg/dL (NEGATIVE); KETONE, URINE AUTO TRACE mg/dL (NEGATIVE); LEUKOCYTE ESTERASE, URINE AUTO 3+ (NEGATIVE); MUCUS, URINE SMALL (NEGATIVE); NITRITE, URINE AUTO POSITIVE (NEGATIVE); PROTEIN, URINE AUTO 1+ mg/dL (NEGATIVE); RBC, URINE AUTO 8 /HPF (0-3); SPECIFIC GRAVITY URINE AUTO 1.027 (1.002-1.035); SQUAMOUS EPITHELIAL CELL UR AU 0 /HPF (0-6); UROBILINOGEN, URINE AUTO 0.2 mg/dL (0.0-2.0); WBC, URINE AUTO 177 /HPF (0-3)
[2017-09-26 20:15] LABS: ANION GAP 6 MEQ/L (8-16); BLOOD UREA NITROGEN 19 MG/DL (7-18); CALCIUM LEVEL 8.3 MG/DL (8.8-10.2); CARBON DIOXIDE LEVEL 32 MEQ/L (21-32); CHLORIDE LEVEL 108 MEQ/L (98-107); CREATININE FOR GFR 0.99 MG/DL (0.70-1.30); GLOMERULAR FILTRATION RATE > 60.0 (>35); GLUCOSE, FASTING 211 MG/DL (83-110); SODIUM LEVEL 146 MEQ/L (136-145)
== END ==
DX: R31.9 Hematuria, unspecified (principal); R10.9 Unspecified abdominal pain
CPT/HCPCS: 80048

== ENCOUNTER → 2017-10-02 | Outpatient (REF) | payer MEDICARE ==
[2017-10-02 10:55] LABS: HEMATOCRIT 36.5 % (42.0-52.0); HEMOGLOBIN 12.1 g/dl (14.0-18.0); MEAN CORPUSCULAR HEMOGLOBIN 31.1 pg (27.0-33.0); MEAN CORPUSCULAR HGB CONC 33.2 g/dl (32.0-36.5); MEAN CORPUSCULAR VOLUME 93.8 fl (80.0-96.0); PLATELET COUNT, AUTOMATED 143 10^3/uL (150-450); RED BLOOD COUNT 3.89 10^6/uL (4.30-6.10); RED CELL DISTRIBUTION WIDTH 13.6 % (11.5-14.5); WHITE BLOOD COUNT 4.7 10^3/uL (4.0-10.0)
[2017-10-02 11:16] LABS: ANION GAP 5 MEQ/L (8-16); BLOOD UREA NITROGEN 18 MG/DL (7-18); CALCIUM LEVEL 8.2 MG/DL (8.8-10.2); CARBON DIOXIDE LEVEL 31 MEQ/L (21-32); CHLORIDE LEVEL 108 MEQ/L (98-107); CREATININE FOR GFR 1.01 MG/DL (0.70-1.30); GLOMERULAR FILTRATION RATE > 60.0 (>35); GLUCOSE, FASTING 240 MG/DL (83-110); POTASSIUM SERUM 4.1 MEQ/L (3.5-5.1); SODIUM LEVEL 144 MEQ/L (136-145)
== END ==
DX: N18.9 Chronic kidney disease, unspecified (principal)
CPT/HCPCS: 80048

== ENCOUNTER → 2017-10-08 | Outpatient (REF) | payer MEDICARE ==
[2017-10-08 09:11] LABS: HEMATOCRIT 37.2 % (42.0-52.0); HEMOGLOBIN 12.6 g/dl (14.0-18.0); MEAN CORPUSCULAR HEMOGLOBIN 31.4 pg (27.0-33.0); MEAN CORPUSCULAR HGB CONC 33.9 g/dl (32.0-36.5); MEAN CORPUSCULAR VOLUME 92.8 fl (80.0-96.0); PLATELET COUNT, AUTOMATED 180 10^3/uL (150-450); RED BLOOD COUNT 4.01 10^6/uL (4.30-6.10); RED CELL DISTRIBUTION WIDTH 13.3 % (11.5-14.5); WHITE BLOOD COUNT 6.7 10^3/uL (4.0-10.0)
[2017-10-08 09:57] LABS: ALBUMIN 3.4 GM/DL (3.2-5.2); ALBUMIN/GLOBULIN RATIO 1.03 (1.00-1.93); ALKALINE PHOSPHATASE 90 U/L (45-117); ALT/SGPT < 6 U/L (12-78); ANION GAP 3 MEQ/L (8-16); AST/SGOT 14 U/L (7-37); BILIRUBIN,TOTAL 0.5 MG/DL (0.2-1.0); BLOOD UREA NITROGEN 17 MG/DL (7-18); CALCIUM LEVEL 8.7 MG/DL (8.8-10.2); CARBON DIOXIDE LEVEL 31 MEQ/L (21-32); CHLORIDE LEVEL 108 MEQ/L (98-107); CREATININE FOR GFR 0.95 MG/DL (0.70-1.30); GLOMERULAR FILTRATION RATE > 60.0 (>35); GLUCOSE, FASTING 160 MG/DL (70-100); POTASSIUM SERUM 4.4 MEQ/L (3.5-5.1); SODIUM LEVEL 142 MEQ/L (136-145); TOTAL PROTEIN 6.7 GM/DL (6.4-8.2)
[2017-10-08 10:03] LABS: ESTIMATED AVERAGE GLUCOSE 148 MG/DL (60-110); HEMOGLOBIN A1c 6.8 %
[2017-10-08 12:32] LABS: VITAMIN B12 LEVEL 838 PG/ML (247-911)
[2017-10-08 12:33] LABS: PTH INTACT 114.1 PG/ML (14.0-72.0)
== END ==
DX: E03.9 Hypothyroidism, unspecified (principal); I50.9 Heart failure, unspecified; N18.9 Chronic kidney disease, unspecified; R73.01 Impaired fasting glucose
CPT/HCPCS: 84443

== ENCOUNTER → 2017-10-14 | Outpatient (REF) | payer MEDICARE | DX: R82.99 Other abnormal findings in urine (principal) | CPT/HCPCS: 87088; 87186 ==

== ENCOUNTER → 2017-10-15 | Outpatient (REF) | payer MEDICARE ==
[2017-10-15 11:36] LABS: HEMATOCRIT 33.5 % (42.0-52.0); HEMOGLOBIN 10.7 g/dl (14.0-18.0); MEAN CORPUSCULAR HEMOGLOBIN 30.8 pg (27.0-33.0); MEAN CORPUSCULAR HGB CONC 31.9 g/dl (32.0-36.5); MEAN CORPUSCULAR VOLUME 96.5 fl (80.0-96.0); PLATELET COUNT, AUTOMATED 181 10^3/uL (150-450); RED BLOOD COUNT 3.47 10^6/uL (4.30-6.10); RED CELL DISTRIBUTION WIDTH 13.7 % (11.5-14.5); WHITE BLOOD COUNT 7.4 10^3/uL (4.0-10.0)
[2017-10-15 12:09] LABS: ANION GAP 4 MEQ/L (8-16); BLOOD UREA NITROGEN 37 MG/DL (7-18); CALCIUM LEVEL 8.2 MG/DL (8.8-10.2); CARBON DIOXIDE LEVEL 31 MEQ/L (21-32); CHLORIDE LEVEL 112 MEQ/L (98-107); CREATININE FOR GFR 2.05 MG/DL (0.70-1.30); GLOMERULAR FILTRATION RATE 33.1 (>35); GLUCOSE, FASTING 169 MG/DL (70-100); POTASSIUM SERUM 4.3 MEQ/L (3.5-5.1); SODIUM LEVEL 147 MEQ/L (136-145)
[2017-10-15 15:54] LABS: INFLUENZA A AMPLIFICATION NEGATIVE (NEGATIVE); INFLUENZA B AMPLIFICATION NEGATIVE (NEGATIVE)
== END ==
DX: R82.90 Unspecified abnormal findings in urine (principal)
CPT/HCPCS: 80048

== ENCOUNTER → 2017-10-16 | Outpatient (REF) | payer MEDICARE ==
[2017-10-16 14:28] LABS: HEMATOCRIT 35.1 % (42.0-52.0); HEMOGLOBIN 11.7 g/dl (14.0-18.0); MEAN CORPUSCULAR HEMOGLOBIN 31.8 pg (27.0-33.0); MEAN CORPUSCULAR HGB CONC 33.3 g/dl (32.0-36.5); MEAN CORPUSCULAR VOLUME 95.4 fl (80.0-96.0); PLATELET COUNT, AUTOMATED 176 10^3/uL (150-450); RED BLOOD COUNT 3.68 10^6/uL (4.30-6.10); WHITE BLOOD COUNT 6.7 10^3/uL (4.0-10.0)
[2017-10-16 14:47] LABS: ANION GAP 7 MEQ/L (8-16); BLOOD UREA NITROGEN 28 MG/DL (7-18); CALCIUM LEVEL 8.3 MG/DL (8.8-10.2); CARBON DIOXIDE LEVEL 28 MEQ/L (21-32); CHLORIDE LEVEL 113 MEQ/L (98-107); CREATININE FOR GFR 1.19 MG/DL (0.70-1.30); GLOMERULAR FILTRATION RATE > 60.0 (>35); GLUCOSE, FASTING 184 MG/DL (70-100); POTASSIUM SERUM 4.5 MEQ/L (3.5-5.1); SODIUM LEVEL 148 MEQ/L (136-145)
== END ==
DX: E86.0 Dehydration (principal)
CPT/HCPCS: 80048

== ENCOUNTER → 2017-10-18 | Outpatient (REF) | payer MEDICARE ==
[2017-10-18 11:20] LABS: ANION GAP 7 MEQ/L (8-16); BLOOD UREA NITROGEN 16 MG/DL (7-18); CARBON DIOXIDE LEVEL 31 MEQ/L (21-32); CHLORIDE LEVEL 106 MEQ/L (98-107); CREATININE FOR GFR 1.03 MG/DL (0.70-1.30); GLOMERULAR FILTRATION RATE > 60.0 (>35); GLUCOSE, FASTING 264 MG/DL (70-100); POTASSIUM SERUM 4.2 MEQ/L (3.5-5.1); SODIUM LEVEL 144 MEQ/L (136-145)
== END ==
DX: E86.0 Dehydration (principal)
CPT/HCPCS: 80048

== ENCOUNTER → 2017-10-22 | Outpatient (REF) | payer MEDICARE ==
[2017-10-22 17:55] LABS: ANION GAP 4 MEQ/L (8-16); BLOOD UREA NITROGEN 15 MG/DL (7-18); CALCIUM LEVEL 8.1 MG/DL (8.8-10.2); CARBON DIOXIDE LEVEL 32 MEQ/L (21-32); CHLORIDE LEVEL 105 MEQ/L (98-107); CREATININE FOR GFR 1.04 MG/DL (0.70-1.30); GLOMERULAR FILTRATION RATE > 60.0 (>35); GLUCOSE, FASTING 258 MG/DL (70-100); POTASSIUM SERUM 4.8 MEQ/L (3.5-5.1); SODIUM LEVEL 141 MEQ/L (136-145)
[2017-10-22 18:01] LABS: APPEARANCE, URINE CLOUDY (CLEAR); BACTERIA, URINE AUTO 2+ (NEGATIVE); BILIRUBIN, URINE AUTO NEGATIVE (NEGATIVE); BLOOD, URINE BLOOD 1+ (NEGATIVE); COLOR, URINE YELLOW (YELLOW); GLUCOSE, URINE (UA) AUTO 1+ mg/dL (NEGATIVE); KETONE, URINE AUTO TRACE mg/dL (NEGATIVE); LEUKOCYTE ESTERASE, URINE AUTO 3+ (NEGATIVE); MUCUS, URINE SMALL (NEGATIVE); NITRITE, URINE AUTO NEGATIVE (NEGATIVE); PROTEIN, URINE AUTO 2+ mg/dL (NEGATIVE); RBC, URINE AUTO 18 /HPF (0-3); SPECIFIC GRAVITY URINE AUTO 1.025 (1.002-1.035); SQUAMOUS EPITHELIAL CELL UR AU 0 /HPF (0-6); UROBILINOGEN, URINE AUTO 0.2 mg/dL (0.0-2.0); WBC, URINE AUTO TNTC /HPF (0-3)
== END ==
DX: E86.0 Dehydration (principal)
CPT/HCPCS: 80048

== ENCOUNTER → 2017-10-23 | Outpatient (REF) ==
[2017-10-23 17:03] LABS: HEMATOCRIT 33.6 % (42.0-52.0); HEMOGLOBIN 11.3 g/dl (14.0-18.0); MEAN CORPUSCULAR HEMOGLOBIN 30.9 pg (27.0-33.0); MEAN CORPUSCULAR HGB CONC 33.6 g/dl (32.0-36.5); MEAN CORPUSCULAR VOLUME 91.8 fl (80.0-96.0); PLATELET COUNT, AUTOMATED 196 10^3/uL (150-450); RED BLOOD COUNT 3.66 10^6/uL (4.30-6.10); RED CELL DISTRIBUTION WIDTH 12.7 % (11.5-14.5); WHITE BLOOD COUNT 7.5 10^3/uL (4.0-10.0)
[2017-10-23 17:16] LABS: ANION GAP 6 MEQ/L (8-16); BLOOD UREA NITROGEN 17 MG/DL (7-18); CALCIUM LEVEL 8.2 MG/DL (8.8-10.2); CARBON DIOXIDE LEVEL 31 MEQ/L (21-32); CHLORIDE LEVEL 105 MEQ/L (98-107); CREATININE FOR GFR 0.98 MG/DL (0.70-1.30); GLOMERULAR FILTRATION RATE > 60.0 (>35); GLUCOSE, FASTING 276 MG/DL (70-100); POTASSIUM SERUM 4.5 MEQ/L (3.5-5.1); SODIUM LEVEL 142 MEQ/L (136-145)
== END ==
DX: R50.9 Fever, unspecified (principal)

== ENCOUNTER → 2017-10-24 | Outpatient (REF) | payer MEDICARE ==
[2017-10-24 21:09] LABS: HEMATOCRIT 36.4 % (42.0-52.0); HEMOGLOBIN 11.8 g/dl (14.0-18.0); MEAN CORPUSCULAR HEMOGLOBIN 30.9 pg (27.0-33.0); MEAN CORPUSCULAR HGB CONC 32.4 g/dl (32.0-36.5); MEAN CORPUSCULAR VOLUME 95.3 fl (80.0-96.0); PLATELET COUNT, AUTOMATED 187 10^3/uL (150-450); RED BLOOD COUNT 3.82 10^6/uL (4.30-6.10); WHITE BLOOD COUNT 9.8 10^3/uL (4.0-10.0)
[2017-10-24 21:15] LABS: APPEARANCE, URINE CLOUDY (CLEAR); BACTERIA, URINE AUTO 1+ (NEGATIVE); BILIRUBIN, URINE AUTO NEGATIVE (NEGATIVE); BLOOD, URINE BLOOD 2+ (NEGATIVE); COLOR, URINE YELLOW (YELLOW); GLUCOSE, URINE (UA) AUTO 3+ mg/dL (NEGATIVE); KETONE, URINE AUTO TRACE mg/dL (NEGATIVE); LEUKOCYTE ESTERASE, URINE AUTO 2+ (NEGATIVE); MUCUS, URINE SMALL (NEGATIVE); NITRITE, URINE AUTO NEGATIVE (NEGATIVE); PROTEIN, URINE AUTO 1+ mg/dL (NEGATIVE); RBC, URINE AUTO 21 /HPF (0-3); SPECIFIC GRAVITY URINE AUTO 1.027 (1.002-1.035); SQUAMOUS EPITHELIAL CELL UR AU 0 /HPF (0-6); UROBILINOGEN, URINE AUTO 0.2 mg/dL (0.0-2.0); WBC, URINE AUTO TNTC /HPF (0-3); YEAST LIKE CELL URINE AUTO SMALL
[2017-10-24 21:33] LABS: ANION GAP 7 MEQ/L (8-16); BLOOD UREA NITROGEN 18 MG/DL (7-18); CALCIUM LEVEL 8.1 MG/DL (8.8-10.2); CARBON DIOXIDE LEVEL 32 MEQ/L (21-32); CHLORIDE LEVEL 103 MEQ/L (98-107); CREATININE FOR GFR 1.14 MG/DL (0.70-1.30); GLOMERULAR FILTRATION RATE > 60.0 (>35); GLUCOSE, FASTING 346 MG/DL (70-100); POTASSIUM SERUM 4.6 MEQ/L (3.5-5.1); SODIUM LEVEL 142 MEQ/L (136-145)
[2017-10-24 23:47] LABS: INFLUENZA A AMPLIFICATION NEGATIVE (NEGATIVE); INFLUENZA B AMPLIFICATION NEGATIVE (NEGATIVE); RSV AMPLIFICATION NEGATIVE (NEGATIVE)
== END ==
DX: J11.1 Influenza due to unidentified influenza virus with other respiratory manifestations (principal)
CPT/HCPCS: 80048

== ENCOUNTER → 2017-10-25 | Outpatient (REF) | DX: R50.9 Fever, unspecified (principal) ==